=== PATIENT | male | born 1950 | race Caucasian/White ===

== ENCOUNTER 2016-10-27 11:04 | Emergency (ER) | payer MEDICARE, BC ==
[2016-10-27] MEDS ORDERED: LIDOCAINE VISCOUS 2% 15 ML CUP MUCOUS MEM STA (11:33)
--- NOTE | 2016-10-27 11:35 | ED ---
ENT HPI - General Chief complaint: ENT Stated complaint: DIFF SWALLOWING, POSS FB Time Seen by Provider: 10/27/16 11:27 Source: patient, RN notes reviewed Mode of arrival: ambulatory Limitations: no limitations - History of Present Illness Initial comments: 65-year-old male presents to the emergency department with a chief complaint of difficulty in swallowing. Since the beginning of September the patient has noticed that he has some irritation with swallowing. He's been to ENT as well as to the clinic. They stated that it was acid reflux and they put him on some medication as well as antibiotic. Patient states that since he seen [place] since be getting worse. Patient states last night he was up all night trying to clear his throat. Patient denies any fever or chills with this. Patient states he hasn't had any nausea vomiting. Patient is able to drink water he is able to swallow his saliva he is able to eat. Patient states just has his throat irritation. Patient states he was concerned due to his symptoms without that he should be evaluated. This is not currently having any other symptoms at this time.Patient denies any recent fever, chills, shortness of breath, chest pain, back pain, abdominal pain, nausea vomiting, numbness or tingling, dysuria or hematuria, constipation or diarrhea, headaches or visual changes, or any other current symptoms. - Related Data Home Medications Medication Instructions Recorded Confirmed ALPRAZolam [Xanax] 0.25 mg PO TID 05/31/14 10/27/16 Acarbose [Precose] 50 mg PO TID 05/31/14 10/27/16 Aspirin EC [Ecotrin] 325 mg PO DAILY 05/31/14 10/27/16 Atenolol [Tenormin] 50 mg PO 05/31/14 10/27/16 Atorvastatin [Lipitor] 40 mg PO 05/31/14 10/27/16 Clopidogrel [Plavix] 75 mg PO DAILY 05/31/14 10/27/16 Lisinopril [Zestril] 10 mg PO DAILY 05/31/14 10/27/16 Mometasone Furoate [Nasonex Nasal 2 spray EA NOSTRIL 05/31/14 10/27/16 [place]] Tamsulosin HCl [Flomax] 0.8 mg PO DAILY 05/31/14 10/27/16 glipiZIDE [Glucotrol XL] 10 mg PO BID 05/31/14 10/27/16 metFORMIN HCL [Glucophage] 1,000 mg PO BID 05/31/14 10/27/16 Nitroglycerin Sl Tabs [Nitrostat] 0.4 mg SUBLINGUAL Q5M PRN 04/20/15 10/27/16 sitaGLIPtin [Januvia] 100 mg PO HS 04/20/15 10/27/16 Esomeprazole Magnesium [NexIUM 22.3 mg PO DAILY 10/27/16 10/27/16 24Hr] Pioglitazone HCl [Actos] 30 mg PO DAILY 10/27/16 10/27/16 Ranitidine HCl [Zantac] 150 mg PO HS 10/27/16 10/27/16 Previous Rx's Medication Instructions Recorded HYDROcodone/APAP 7.5-325MG [[place] 1 tab PO Q6HR PRN #90 tab 10/15/15 7.5-325] Sucralfate [Carafate] 1 gm PO ACHS #30 tab 10/27/16 Allergies Allergy/AdvReac Type Severity Reaction Status Date / Time No Known Allergies Allergy Verified 10/27/16 11:23 Review of Systems ROS Statement: Those systems with pertinent positive or pertinent negative responses have been documented in the HPI. ROS Other: All systems not noted in ROS Statement are negative. Past Medical History Past Medical History: Coronary Artery Disease (CAD), Diabetes Mellitus, GERD/ Reflux, Hyperlipidemia, Hypertension, Myocardial Infarction ([place]), Osteoarthritis (OA), Prostate Disorder Additional Past Medical History / Comment(s): Hx. KIDNEY STONES, occasional SOB recently Last Myocardial Infarction Date:: 2004 History of Any Multi-Drug Resistant Organisms: None Reported Past Surgical History: Appendectomy, Back Surgery, Ear Surgery, Heart Catheterization, Heart Catheterization With Stent, Orthopedic Surgery Additional Past Surgical History / Comment(s): METAL SCREWS IN BACK, RIGHT EAR TUBE, EPIDURAL PAIN SHOTS, previous stents 2004,2005, LITHOTRIPSY LT KIDNEY, recent heart cath 2014 Past Anesthesia/Blood Transfusion Reactions: No Reported Reaction Date of Last Stent Placement:: 05/2014 Past Psychological History: Anxiety Smoking Status: Never smoker Past Alcohol Use History: Rare Past Drug Use History: None Reported - Past Family History Father Family Medical History: Cancer Additional Family Medical History / Comment(s): BRAIN General Exam - General Exam Comments Initial Comments: General: The patient is awake and alert, in no distress, and does not appear acutely ill. Eye: Pupils are equal, round and reactive to light, extra-ocular movements are intact; there is normal conjunctiva bilaterally. No signs of icterus. Ears, nose, mouth and throat: There are moist mucous membranes and no oral lesions. Neck: The neck is supple, there is no tenderness. Cardiovascular: There is a regular rate and rhythm. No murmur, rub or gallop is appreciated. Respiratory: Lungs are clear to auscultation, respirations are non-labored, breath sounds are equal. No wheezes, stridor, rales, or rhonchi. Gastrointestinal: Soft, non-distended, non-tender abdomen without masses or organomegaly noted. There is no rebound or guarding present. No CVA tenderness. Bowel sounds are unremarkable. Back: There is no tenderness to palpation in the midline. There is no obvious deformity. No rashes noted. Musculoskeletal: Normal ROM, no tenderness, There is no pedal edema. There is no calf tenderness or swelling. Sensation intact. Pulses equal bilaterally 2+. Neurological: CN II-XII intact, There are no obvious motor or sensory deficits. Coordination appears grossly intact. Speech is normal. Skin: Skin is warm and dry and no rashes or lesions are noted. Psychiatric: Cooperative, appropriate mood & affect, normal judgment. Limitations: no limitations Course Vital Signs 10/27/16 11:18 Temperature 97.2 F L Pulse Rate 74 Respiratory 18 Rate Blood Pressure 133/60 O2 Sat by Pulse 98 Oximetry Medical Decision Making - Medical Decision Making 65-year-old male presents to emergency room chief complaint irritation with swallowing. At this time the patient is able to take water in the room. Patient is handling his own saliva and speaking in full sentences. Patient has had an outpatient workup for this they did not find a cause for this. At this time we did do x-rays as well as get patient lidocaine. Lidocaine did not help with the patient's symptoms. Patient's x-rays are reviewed and negative. This time we discussed needs to follow-up with an EEG DEP. We did give him Dr. Longoria information regarding this. He is to be treating for acid reflux he discussed continue this medicine. The case is discussed with Dr. Hyde who is in agreement with the plan. All their questions have been answered. They will be discharged home. Disposition Clinical Impression: Irritated throat, GERD (gastroesophageal reflux disease) Disposition: HOME SELF-CARE Condition: Stable Instructions: Gastroesophageal Reflux Disease (ED) Additional Instructions: Please use medication as discussed. Please follow up with family doctor if symptoms have not improved over the next two days. Please return to the emergency room if your symptoms increase or worsen or for any other concerns. Prescriptions: Sucralfate [Carafate] 1 gm PO ACHS #30 tab Referrals: Timur Cruz MD [Primary Care Provider] - 1-2 days Basil Hernandez MD [STAFF PHYSICIAN] - 1-2 days Time of Disposition: 12:21
--- NOTE | 2016-10-27 11:51 | XR ---
EXAMINATION TYPE: XR chest 2V DATE OF EXAM: 10/27/2016 11:46 AM COMPARISON: 10/02/2015 INDICATION: Stuck in throat, shortness of breath TECHNIQUE: Frontal and lateral views of the chest are obtained. FINDINGS: The heart size is normal. The pulmonary vasculature is normal. The lungs are clear. There is focal eventration of the right hemidiaphragm. IMPRESSION: 1. No acute pulmonary process.
--- NOTE | 2016-10-27 11:54 | XR ---
EXAMINATION TYPE: XR cervical spine comp DATE OF EXAM: 10/27/2016 11:46 AM COMPARISON: NONE HISTORY: Pain TECHNIQUE: 5 view cervical spine FINDINGS: Prevertebral space is normal. Mild disc space narrowing is present C4-5 C5-C6 C6-7. Small a nterior vertebral body spurs are present C5 and C6. Posterior spinal lamellar line is intact. Facet d egenerative changes present. There is right foraminal narrowing C4-C5 on the left. Severe foraminal narrowing is present C3-4 on t he right. More moderate foraminal narrowing is present C4-5 C5-6. Odontoid is somewhat limited due to overlying occiput. IMPRESSION: 1. Foraminal stenosis worse on the right discussed above. 2. Mild degenerative disc changes.
[2016-10-27 12:53] VITALS: BP 131/63; PULSE 68; RESP 16; TEMP 96.8
== END 2016-10-27 12:53 | disposition home or self-care (01) ==
LOC: EC 11:04
DX: K21.9 Gastro-esophageal reflux disease without esophagitis (principal); E11.9 Type 2 diabetes mellitus without complications; I25.2 Old myocardial infarction; I25.10 Atherosclerotic heart disease of native coronary artery without angina pectoris; I10 Essential (primary) hypertension; E78.5 Hyperlipidemia, unspecified; F41.9 Anxiety disorder, unspecified; Z95.5 Presence of coronary angioplasty implant and graft; Z79.899 Other long term (current) drug therapy; Z79.02 Long term (current) use of antithrombotics/antiplatelets; Z79.51 Long term (current) use of inhaled steroids; Z79.84 Long term (current) use of oral hypoglycemic drugs; Z79.82 Long term (current) use of aspirin
CPT/HCPCS: 71020; 72050; 99284

== ENCOUNTER → 2016-10-31 | Outpatient (CLI) | payer MEDICARE, BC ==
--- NOTE | 2016-10-31 09:54 | FL ---
ESOPHOGRAM. HISTORY: Dysphagia Esophagram was performed per the air contrast technique. The patient swallowed barium and effervesce nt crystals without difficulty or delay. Esophageal peristalsis and motility appear to be within normal limits. There is no evidence for filling defect, mass or diverticulum. No hiatal hernia seen. Subsequently single contrast cervical esophagram was performed which fails demonstrate evidence for a spiration penetration or mass. IMPRESSION: Unremarkable study.
== END | disposition home or self-care (01) ==
LOC: RADFLWHC 08:51
PROVIDERS: ATTEND Internal Medicine
DX: R13.10 Dysphagia, unspecified (principal)
CPT/HCPCS: 74220

== ENCOUNTER 2016-11-07 08:43 | Day surgery (SDC) | payer MEDICARE, BC ==
[2016-11-04 11:53] VITALS: BMI 30.4
[~2016-11-07 08:43] MED LIST: LACTATED RINGERS 1,000 ML IV SCH
[2016-11-07] MEDS ORDERED: LIDOCAINE 1% 20 ML VIAL (10MG/ML) FOR IV START SQ ONE (09:02)
[2016-11-07 09:08] VITALS: RESP 16; TEMP 97.9
[2016-11-07 09:18] LABS: Glucose,Whole Blood 72 mg/dL (75-99)
[2016-11-07] MEDS ORDERED: PROPOFOL 10 MG/ML 20 ML VIAL IV ONE (09:57)
[2016-11-07] MEDS ORDERED: LIDOCAINE 1% INJ 10MG/ML (20 ML MDV) ONE (09:57)
--- NOTE | 2016-11-07 10:21 | P.PCN ---
Date of Procedure: 11/07/16 Procedure(s) Performed: Procedure: Esophagogastroduodenoscopy and biopsy. Preoperative diagnosis: Chronic reflux symptoms and dysphagia. Postoperative diagnosis: Mild antral gastritis. Preparation and sedation: Was provided by anesthesia. Brief clinical history: The patient is a 65-year-old male who is referred for this evaluation for the above complaints. The patient has been on Nexium since 2004 or 2005 for reflux type symptoms. He has been having issues lately with excessive secretions and at times difficulty swallowing. He had a barium swallow which was normal. This evaluation is to assess for complicated reflux disease or other pathology. Procedure: With the patient on his left lateral decubitus position and after informed consent and adequate sedation, I passed the Olympus-GIF 160 video upper endoscope through the cricopharyngeus down the esophagus. GE junction was around 41 cm from the incisors and there was no definite hiatal hernia. The esophagus did not show any erosions, ulcers, strictures or Landa's esophagus. The endoscope was then passed into the stomach which was insufflated with air and inspected in detail including the retroflex view in the cardia. There was some mottling and erythema consistent with mild gastritis but no ulcers or erosions. Pyloric channel, duodenal bulb, post bulbar area and descending duodenum appeared within normal limits. I obtained multiple biopsies from the duodenum, antrum and esophagus then the endoscope was withdrawn. The patient tolerated the procedure well. Plan: The patient was reassured. Will await biopsy results. He will continue antireflux diet and measures and with his current medical therapy. If he remains symptomatic of dysphagia I would consider a motility study in the absence of significant findings on this exam or any need for dilation today. He will follow up with you as planned.
[2016-11-07 10:25] LABS: Glucose,Whole Blood 75 mg/dL (75-99)
[2016-11-07 10:37] VITALS: BP 118/65; PULSE 53
== END 2016-11-07 10:51 | disposition home or self-care (01) ==
LOC: ORWHC2ENDO 08:43
DX: K21.9 Gastro-esophageal reflux disease without esophagitis (principal); K29.50 Unspecified chronic gastritis without bleeding; E11.9 Type 2 diabetes mellitus without complications; I25.10 Atherosclerotic heart disease of native coronary artery without angina pectoris; I10 Essential (primary) hypertension; E78.5 Hyperlipidemia, unspecified; N20.0 Calculus of kidney; N40.0 Benign prostatic hyperplasia without lower urinary tract symptoms; M19.90 Unspecified osteoarthritis, unspecified site; I25.2 Old myocardial infarction; Z79.84 Long term (current) use of oral hypoglycemic drugs; Z79.02 Long term (current) use of antithrombotics/antiplatelets; Z79.82 Long term (current) use of aspirin; Z79.891 Long term (current) use of opiate analgesic; Z79.899 Other long term (current) drug therapy; Z95.5 Presence of coronary angioplasty implant and graft; Z90.49 Acquired absence of other specified parts of digestive tract
CPT/HCPCS: 88305; 88342; 43239; J2001; J2704

== ENCOUNTER 2016-11-12 17:51 | Emergency (ER) | payer MEDICARE, BC ==
[2016-11-12] MEDS ORDERED: SODIUM CHLORIDE 0.9% 1,000 ML IV STA (18:35)
[2016-11-12] MEDS ORDERED: KETOROLAC 30 MG/ML 1 ML VIAL IVP STA (18:35)
[2016-11-12] MEDS ORDERED: HYDROmorphone 1 MG/ML 1 ML SYRINGE IVP STA ×2 (18:35→20:13)
[2016-11-12] MEDS ORDERED: ONDANSETRON 4 MG/2 ML VIAL IVP STA (18:35)
--- NOTE | 2016-11-12 18:45 | ED ---
Abdominal Pain HPI - General Chief Complaint: Abdominal Pain Stated Complaint: Back/flank pain Time Seen by Provider: 11/12/16 18:30 Source: patient, RN notes reviewed Mode of arrival: ambulatory Limitations: no limitations - History of Present Illness Initial Comments: Patient is a 65-year-old male, with chief complaint of right flank pain radiating down towards his groin for the past afternoon. Patient reports that it started around 2:00 this afternoon. He states he took a [place] and his pain is somewhat relieved since then. He has a sensitive history of kidney stones. He states that he has felt somewhat nauseated but denies any specific vomiting. No fever or chills. Patient reports that he is had to have lithotripsies in the past for kidney stones. He reports that his pain is currently a 4 out of 10 but prior to taking the [place] was about a 7 out of 10. He reports that this pain is similar to all previous kidney stones that he is had. He denies a specific hematuria. Patient denies any recent fever, chills, shortness of breath, chest pain,nausea vomiting, numbness or tingling, dysuria or hematuria, constipation or diarrhea, headaches or visual changes, or any other current symptoms - Related Data Home Medications Medication Instructions Recorded Confirmed ALPRAZolam [Xanax] 0.25 mg PO QAM 05/31/14 11/12/16 Acarbose [Precose] 50 mg PO TID 05/31/14 11/12/16 Aspirin EC [Ecotrin] 325 mg PO DAILY 05/31/14 11/12/16 Atenolol [Tenormin] 50 mg PO 05/31/14 11/12/16 Atorvastatin [Lipitor] 40 mg PO 05/31/14 11/12/16 Clopidogrel [Plavix] 75 mg PO DAILY 05/31/14 11/12/16 Lisinopril [Zestril] 10 mg PO DAILY 05/31/14 11/12/16 Mometasone Furoate [Nasonex Nasal 2 spray EA NOSTRIL 05/31/14 11/12/16 [place]] Tamsulosin HCl [Flomax] 0.8 mg PO DAILY 05/31/14 11/12/16 glipiZIDE [Glucotrol XL] 10 mg PO BID 05/31/14 11/12/16 Nitroglycerin Sl Tabs [Nitrostat] 0.4 mg SUBLINGUAL Q5M PRN 04/20/15 11/12/16 sitaGLIPtin [Januvia] 100 mg PO HS 04/20/15 11/12/16 Esomeprazole Magnesium [NexIUM 22.3 mg PO DAILY 10/27/16 11/12/16 24Hr] Pioglitazone HCl [Actos] 30 mg PO HS 10/27/16 11/12/16 Ranitidine HCl [Zantac] 150 mg PO HS 10/27/16 11/12/16 Montelukast [Singulair] 10 mg PO HS 11/12/16 11/12/16 metFORMIN HCL 1,000 mg PO BID 11/12/16 11/12/16 Previous Rx's Medication Instructions Recorded HYDROcodone/APAP 7.5-325MG [[place] 1 tab PO Q6HR PRN #90 tab 10/15/15 7.5-325] LORazepam [Ativan] 1 mg PO HS #5 tab 10/27/16 HYDROcodone/APAP 10-325MG [[place] 1 tab PO Q6H PRN #10 tab 11/12/16 10-325] Ketorolac [Toradol] 10 mg PO TID #15 tab 11/12/16 Tamsulosin [Flomax] 0.4 mg PO DAILY #7 cap 11/12/16 Allergies Allergy/AdvReac Type Severity Reaction Status Date / Time No Known Allergies Allergy Verified 11/12/16 18:47 Review of Systems ROS Statement: Those systems with pertinent positive or pertinent negative responses have been documented in the HPI. ROS Other: All systems not noted in ROS Statement are negative. Past Medical History Past Medical History: Coronary Artery Disease (CAD), Cancer, Chest Pain / Angina , Diabetes Mellitus, GERD/Reflux, Hyperlipidemia, Hypertension, Myocardial Infarction ([place]), Osteoarthritis (OA), Prostate Disorder, Skin Disorder Additional Past Medical History / Comment(s): Hx. KIDNEY STONES, occasional SOB recently, diff swallowing-feels like in throat, diarrhea, dry skin, hx bladder cancer Last Myocardial Infarction Date:: 2004 History of Any Multi-Drug Resistant Organisms: None Reported Past Surgical History: Appendectomy, Back Surgery, Ear Surgery, Heart Catheterization, Heart Catheterization With Stent, Orthopedic Surgery Additional Past Surgical History / Comment(s): METAL SCREWS IN BACK, RIGHT EAR TUBE/now gone, EPIDURAL PAIN SHOTS, previous stents 2004,2005, LITHOTRIPSY, rt shoulder rotator cuff Past Anesthesia/Blood Transfusion Reactions: No Reported Reaction Date of Last Stent Placement:: 05/2014 Past Psychological History: Anxiety Smoking Status: Never smoker Past Alcohol Use History: Rare Past Drug Use History: None Reported - Past Family History Father Family Medical History: Cancer Additional Family Medical History / Comment(s): BRAIN General Exam - General Exam Comments Initial Comments: Nikky is a well-appearing 65-year-old male. He is resting, lamivudine does not appear to be in any acute distress. Limitations: no limitations General appearance: alert, in no apparent distress Head exam: Present: atraumatic, normocephalic, normal inspection Eye exam: Present: normal appearance, PERRL, EOMI. Absent: scleral icterus, conjunctival injection, periorbital swelling ENT exam: Present: normal exam, mucous membranes moist Neck exam: Present: normal inspection. Absent: tenderness, meningismus, lymphadenopathy Respiratory exam: Present: normal lung sounds bilaterally. Absent: respiratory distress, wheezes, rales, rhonchi, stridor Cardiovascular Exam: Present: regular rate, normal rhythm, normal heart sounds. Absent: systolic murmur, diastolic murmur, rubs, gallop, clicks GI/Abdominal exam: Present: soft, normal bowel sounds. Absent: distended, tenderness, guarding, rebound, rigid Extremities exam: Present: normal inspection, full ROM, normal capillary refill. Absent: tenderness, pedal edema, joint swelling, calf tenderness Back exam: Present: normal inspection, full ROM, CVA tenderness (L). Absent: CVA tenderness (R) Neurological exam: Present: alert, oriented X3, CN II-XII intact Psychiatric exam: Present: normal affect, normal mood Skin exam: Present: warm, dry, intact, normal color. Absent: rash Course Vital Signs 11/12/16 11/12/16 11/12/16 18:25 19:06 22:00 Temperature 98.1 F 97.9 F 97.2 F L Pulse Rate 84 55 L 66 Respiratory 17 16 16 Rate Blood Pressure 132/63 146/67 131/64 O2 Sat by Pulse 96 100 97 Oximetry Medical Decision Making - Medical Decision Making Nikky is a 65-year-old male with one afternoon of right flank pain rating towards grown, and he states that he has a history of kidney stones. Patient does have blood in his urine, and lab work is unremarkable. KUB shows possible 5mm renal stone, and no other acute abnormalities. Patient is concerned that the kidney stones are too large to pass. Patient CT shows left sided hydronephrosis that is improved from previous CT scans. Evidence of a stone in the bladder, and multiple renal calculi blatterally. No evidence of an obstructing stone in the left ureter. Patient given IV fluids and pain management. Patient will be given Rx of NOrco, flomax, and toradol. Patients urine and lab work show no signs of infection, we will culture urine and hold on antibiotics. Patient will be advised to follow up with PCP and repeat urinealysis and to return to the EC if any alarming signs or symptoms occur, including fevers. - Lab Data Result diagrams: 11/12/16 18:51 11/12/16 18:51 Lab Results 11/12/16 11/12/16 11/12/16 Range/Units 18:51 18:51 18:51 WBC 8.2 (3.8-10.6) k/uL RBC 3.99 L (4.30-5.90) m/uL Hgb 12.5 L (13.0-17.5) gm/dL Hct 37.5 L (39.0-53.0) % MCV 93.9 (80.0-100.0) fL MCH 31.3 (25.0-35.0) pg MCHC 33.3 (31.0-37.0) g/dL RDW 13.3 (11.5-15.5) % Plt Count 224 (150-450) k/uL Neutrophils % 73 % Lymphocytes % 16 % Monocytes % 6 % Eosinophils % 3 % Basophils % 1 % Neutrophils # 6.0 (1.3-7.7) k/uL Lymphocytes # 1.3 (1.0-4.8) k/uL Monocytes # 0.5 (0-1.0) k/uL Eosinophils # 0.2 (0-0.7) k/uL Basophils # 0.0 (0-0.2) k/uL Sodium 146 H (137-145) mmol/L Potassium 4.6 (3.5-5.1) mmol/L Chloride 110 H (98-107) mmol/L Carbon Dioxide 20 L (22-30) mmol/L Anion Gap 16 mmol/L BUN 16 (9-20) mg/dL Creatinine 1.00 (0.66-1.25) mg/dL Est GFR (MDRD) Af Amer >60 (>60 ml/min/1.73 sqM) Est GFR (MDRD) Non-Af >60 (>60 ml/min/1.73 sqM) Glucose 169 H (74-99) mg/dL Calcium 10.1 (8.4-10.2) mg/dL Total Bilirubin 0.7 (0.2-1.3) mg/dL AST 33 (17-59) U/L ALT 37 (21-72) U/L Alkaline Phosphatase 67 (38-126) U/L Total Protein 7.4 (6.3-8.2) g/dL Albumin 4.4 (3.5-5.0) g/dL Amylase 90 (30-110) U/L Lipase 160 (23-300) U/L Urine Color Yellow Urine Appearance Clear (Clear) Urine pH 5.0 (5.0-8.0) Ur Specific [place] 1.018 (1.001-1.035) Urine Protein Trace H (Negative) Urine Glucose (UA) Negative (Negative) Urine Ketones Negative (Negative) Urine Blood Moderate H (Negative) Urine Nitrate Negative (Negative) Urine Bilirubin Negative (Negative) Urine Urobilinogen <2.0 (<2.0) mg/dL Ur Leukocyte Esterase Negative (Negative) Urine RBC 79 H (0-5) /hpf Urine WBC 4 (0-5) /hpf Ur Squamous Epith Cells <1 (0-4) /hpf Urine Mucus Rare H (None) /hpf - Radiology Data Radiology results: report reviewed Numerous bilateral renal calculi. mild left hydronephrosis and hydroureter. stone in distal left ureter on old scan is cleared and is in bladder. atherosclerotic vascular disease. Hydronephrosis is improved from previous exam. Disposition Clinical Impression: Left nephrolithiasis Disposition: HOME SELF-CARE Condition: Good Instructions: Kidney Stones (ED), Flank Pain (ED) Additional Instructions: instructed to follow-up with urologist. Return to the EC if any alarming signs or symptoms occur. Follow-up with primary care provider. Prescriptions: HYDROcodone/APAP 10-325MG [[place] 10-325] 1 tab PO Q6H PRN #10 tab PRN Reason: Pain Ketorolac [Toradol] 10 mg PO TID #15 tab Tamsulosin [Flomax] 0.4 mg PO DAILY #7 cap Referrals: Timur Cruz MD [Primary Care Provider] - 1-2 days Time of Disposition: 21:43
[2016-11-12 19:02] LABS: Basophils % (A) 1 %; CH 32.3; CHCM 34.6; Eosinophils # (A) 0.2 k/uL (0-0.7); Eosinophils % (A) 3 %; HCT 37.5 % (39.0-53.0); HGB 12.5 gm/dL (13.0-17.5); Luc # (Auto) 0.13; Luc % (Auto) 2; Lymphocytes # (A) 1.3 k/uL (1.0-4.8); Lymphocytes % (A) 16 %; MCH 31.3 pg (25.0-35.0); MCHC 33.3 g/dL (31.0-37.0); MCV 93.9 fL (80.0-100.0); Mean Platelet Volume 6.9; Monocytes # (A) 0.5 k/uL (0-1.0); Monocytes % (A) 6 %; Neutrophils % (A) 73 %; RBC 3.99 m/uL (4.30-5.90); RDW 13.3 % (11.5-15.5); WBC 8.2 k/uL (3.8-10.6); WBC (Perox) 8.69
[2016-11-12 19:08] VITALS: RESP 16
[2016-11-12 19:10] LABS: Appearance,Urine Clear (Clear); Bilirubin,Urine Negative (Negative); Glucose,Urine (UA) Negative (Negative); Ketones,Urine Negative (Negative); Leukocyte Esterase,Urine Negative (Negative); Mucus,Urine Rare /hpf; Nitrite,Urine Negative (Negative); Particle Count 1324; Protein,Urine Trace (Negative); RBC,Urine 79 /hpf (0-5); Specific Gravity,Urine 1.018 (1.001-1.035); Squamous Epithelial Cell,Urine <1 /hpf (0-4); UA Billing (MACRO vs. MICRO) MICRO; Urobilinogen,Urine <2.0 mg/dL (<2.0); WBC,Urine 4 /hpf (0-5)
[2016-11-12 19:17] LABS: ALT 37 U/L (21-72); AST 33 U/L (17-59); Alkaline Phosphatase 67 U/L (38-126); Amylase 90 U/L (30-110); Anion Gap 16 mmol/L; Blood Urea Nitrogen 16 mg/dL (9-20); Calcium 10.1 mg/dL (8.4-10.2); Carbon Dioxide 20 mmol/L (22-30); Chloride 110 mmol/L (98-107); Glucose 169 mg/dL (74-99); Non-African American GFR(MDRD) >60 (>60 ml/min/1.73 sqM); Potassium 4.6 mmol/L (3.5-5.1); Sodium 146 mmol/L (137-145); Total Bilirubin 0.7 mg/dL (0.2-1.3); Total Protein 7.4 g/dL (6.3-8.2)
--- NOTE | 2016-11-12 20:04 | XR ---
EXAMINATION TYPE: XR KUB DATE OF EXAM: 11/12/2016 7:31 PM COMPARISON: 07/06/2015 HISTORY: Flank pain left lower quadrant pain TECHNIQUE: 2 views FINDINGS: There is no sign of intestinal obstruction or pneumoperitoneum. Fecal pattern is normal. Tena ng bases are clear. There are rods and screws fusing posteriorly the lower lumbar spine. There is a f aint 5 mm calcification over the lower pole left kidney. IMPRESSION: There is probably a left renal calculus without change compared to old exam. Nonacute abd omen. There are probably other right renal calculi similar to old exam.
--- NOTE | 2016-11-12 21:15 | CT ---
EXAMINATION TYPE: CT abdomen pelvis wo con DATE OF EXAM: 11/12/2016 8:39 PM COMPARISON: NONE HISTORY: Left sided flank pain CT DLP: 1200 mGycm Automated exposure control for dose reduction was used. TECHNIQUE: Helical acquisition of images was performed from the lung bases through the pelvis. FINDINGS: Lung bases are clear of consolidation. There is no pleural effusion. The liver spleen pancreas appear normal. There is a small calcified gallstone. Bile ducts are not dil ated. There is no adrenal mass. There are multiple bilateral renal calculi that measure up to 5 mm. T here is a single 1 cm right renal calculus. There is mild left-sided hydronephrosis and hydroureter. There is a 7 mm calcification in the posterior urinary bladder consistent with a bladder stone. Right ureter is not dilated. There is no retroperitoneal adenopathy.. Bladder distends smoothly. There is no sign of a pelvic mass. I see no intestinal wall thickening. There are no dilated loops. There is a n umbilical hernia contains omental fat. There is no sign of a bowel obstruction. There is atheroscle rotic vascular calcification. I see no bony destructive process.: IMPRESSION: NUMEROUS BILATERAL RENAL CALCULI. MILD LEFT-SIDED HYDRONEPHROSIS AND HYDROURETER. THERE IS A STONE IN THE DISTAL LEFT URETER ON OLD CT SCAN THAT HAS CLEARED FROM THE URETER AND MAY BE WITHIN THE URINARY BLADDER. THERE IS A SINGLE BLADDER STONE. ATHEROSCLEROTIC VASCULAR DISEASE. LEFT-SIDED HYDRONEPHROSI S IS IMPROVED COMPARED TO OLD EXAM.
[2016-11-12 22:01] VITALS: BP 131/64; PULSE 66; TEMP 97.2
== END 2016-11-12 22:07 | disposition home or self-care (01) ==
LOC: EC 17:51
DX: N13.2 Hydronephrosis with renal and ureteral calculous obstruction (principal); F41.9 Anxiety disorder, unspecified; K21.9 Gastro-esophageal reflux disease without esophagitis; I10 Essential (primary) hypertension; E11.9 Type 2 diabetes mellitus without complications; I25.10 Atherosclerotic heart disease of native coronary artery without angina pectoris; N42.9 Disorder of prostate, unspecified; E78.5 Hyperlipidemia, unspecified; Z87.442 Personal history of urinary calculi; Z79.899 Other long term (current) drug therapy; I25.2 Old myocardial infarction; Z95.5 Presence of coronary angioplasty implant and graft; Z79.02 Long term (current) use of antithrombotics/antiplatelets; Z79.51 Long term (current) use of inhaled steroids; Z79.84 Long term (current) use of oral hypoglycemic drugs; Z85.51 Personal history of malignant neoplasm of bladder
CPT/HCPCS: 99284; 96374; 96375; 96376; 96361; 36415; 80053; 82150; 83690; 85025; 81001; 74000; 74176; J2405; J1885; J1170

== ENCOUNTER → 2017-05-13 | Outpatient (CLI) | payer MEDICARE, BC ==
--- NOTE | 2017-05-13 22:53 | US ---
EXAMINATION TYPE: US thyroid st tissue head/neck DATE OF EXAM: 05/13/2017 COMPARISON: None. CLINICAL HISTORY: 66-year-old male R13.19 Other dysphagia. Patient feels phlegm in throat. TECHNIQUE: Multiple sonographic images of the thyroid gland are obtained. FINDINGS: Right Lobe: 2.9 x 1.3 x 1.3 cm Overall Parenchyma: homogenous Left Lobe: 3.3 x 1.4 x 1.2 cm Overall Parenchyma: homogeneous Isthmus Thickness: 0.4 cm On the right, in the upper pole, there is a tiny 3 mm cyst. Otherwise, no discrete nodule is seen. Bilateral neck scanned: small lymph node = 0.7 x 0.4 x 0.4cm is noted superior to right thyroid. No l ymphadenopathy seen. IMPRESSION: Tiny 3 mm cyst in the right thyroid lobe. Gland measurements as above.
== END | disposition home or self-care (01) ==
LOC: RADUSMAIN 15:41
PROVIDERS: ATTEND Internal Medicine Endocrinology, Diabetes & Metabolism
DX: E04.1 Nontoxic single thyroid nodule (principal)
CPT/HCPCS: 76536; 84439; 84443

== ENCOUNTER 2017-10-25 07:46 | Inpatient (IN) | payer MEDICARE, BC ==
[2017-10-25] MEDS ORDERED: SODIUM CHLORIDE 0.9% 1,000 ML IV STA (07:55)
--- NOTE | 2017-10-25 07:56 | ED ---
General Adult HPI - General Stated complaint: CHEST TIGHTNESS, HEART Hx Time Seen by Provider: 10/25/17 07:54 Source: RN notes reviewed, old records reviewed - History of Present Illness Initial comments: This is a 66-year-old male to the ER for a couple complaints, patient is complaining of chest pain first and foremost anterior chest pain heaviness that comes and goes, patient has history of heart disease history of stent. Patient also has history of kidney stones and believes he is having a kidney stone currently. Left-sided flank pain severe. No nausea vomiting, patient has had some belching and bloating prior to arrival. No shortness of breath or diaphoresis. Patient did take nitro with minimal help - Related Data Home Medications Medication Instructions Recorded Confirmed ALPRAZolam [Xanax] 0.25 mg PO QAM 05/31/14 11/12/16 Acarbose [Precose] 50 mg PO TID 05/31/14 11/12/16 Aspirin EC [Ecotrin] 325 mg PO DAILY 05/31/14 11/12/16 Atenolol [Tenormin] 50 mg PO 05/31/14 11/12/16 Atorvastatin [Lipitor] 40 mg PO HS 05/31/14 11/12/16 Clopidogrel [Plavix] 75 mg PO DAILY 05/31/14 11/12/16 Lisinopril [Zestril] 10 mg PO DAILY 05/31/14 11/12/16 Mometasone Furoate [Nasonex Nasal 2 spray EA NOSTRIL HS 05/31/14 11/12/16 [place]] Tamsulosin HCl [Flomax] 0.8 mg PO DAILY 05/31/14 11/12/16 glipiZIDE [Glucotrol XL] 10 mg PO BID 05/31/14 11/12/16 Nitroglycerin Sl Tabs [Nitrostat] 0.4 mg SUBLINGUAL Q5M PRN 04/20/15 11/12/16 sitaGLIPtin [Januvia] 100 mg PO HS 04/20/15 11/12/16 Esomeprazole Magnesium [NexIUM 22.3 mg PO DAILY 10/27/16 11/12/16 24Hr] Pioglitazone HCl [Actos] 30 mg PO HS 10/27/16 11/12/16 Ranitidine HCl [Zantac] 150 mg PO HS 10/27/16 11/12/16 Montelukast [Singulair] 10 mg PO HS 11/12/16 11/12/16 metFORMIN HCL 1,000 mg PO BID 11/12/16 11/12/16 Previous Rx's Medication Instructions Recorded HYDROcodone/APAP 7.5-325MG [[place] 1 tab PO Q6HR PRN #90 tab 10/15/15 7.5-325] LORazepam [Ativan] 1 mg PO HS #5 tab 10/27/16 HYDROcodone/APAP 10-325MG [[place] 1 tab PO Q6H PRN #10 tab 11/12/16 10-325] Ketorolac [Toradol] 10 mg PO TID #15 tab 11/12/16 Tamsulosin [Flomax] 0.4 mg PO DAILY #7 cap 11/12/16 Allergies Allergy/AdvReac Type Severity Reaction Status Date / Time No Known Allergies Allergy Verified 11/12/16 18:47 Review of Systems ROS Statement: Those systems with pertinent positive or pertinent negative responses have been documented in the HPI. ROS Other: All systems not noted in ROS Statement are negative. Past Medical History Past Medical History: Coronary Artery Disease (CAD), Cancer, Chest Pain / Angina , Diabetes Mellitus, GERD/Reflux, Hyperlipidemia, Hypertension, Myocardial Infarction ([place]), Osteoarthritis (OA), Prostate Disorder, Skin Disorder Additional Past Medical History / Comment(s): Hx. KIDNEY STONES, occasional SOB recently, diff swallowing-feels like in throat, diarrhea, dry skin, hx bladder cancer Last Myocardial Infarction Date:: 2004 History of Any Multi-Drug Resistant Organisms: None Reported Past Surgical History: Appendectomy, Back Surgery, Ear Surgery, Heart Catheterization, Heart Catheterization With Stent, Orthopedic Surgery Additional Past Surgical History / Comment(s): METAL SCREWS IN BACK, RIGHT EAR TUBE/now gone, EPIDURAL PAIN SHOTS, previous stents 2004,2005, LITHOTRIPSY, rt shoulder rotator cuff Past Anesthesia/Blood Transfusion Reactions: No Reported Reaction Date of Last Stent Placement:: 05/2014 Past Psychological History: Anxiety Smoking Status: Never smoker Past Alcohol Use History: Rare Past Drug Use History: None Reported - Past Family History Father Family Medical History: Cancer Additional Family Medical History / Comment(s): BRAIN Course Vital Signs 10/25/17 10/25/17 10/25/17 07:56 09:27 10:06 Temperature 97 F L Pulse Rate 60 60 59 L Respiratory 16 16 16 Rate Blood Pressure 185/81 179/76 173/74 O2 Sat by Pulse 98 98 98 Oximetry - Reevaluation(s) Reevaluation #1: 10/25/17 10:16 Patient does have adequate pain control at this time EKG Findings - EKG Comments: EKG Findings:: EKG shows normal sinus rhythm rate of 61, AR 172, QRS 98, QTC 424 Medical Decision Making - Medical Decision Making 66 male the ER for evaluation, patient presents today for evaluation of chest pain. Patient also thinks he has a kidney stone left-sided. Patient was severe chest pain, and ER for chest pain evaluation currently. Patient says EKG and troponin which are negative, states they're normally negative, history of stent and will be admitted for cardiac evaluation - Lab Data Result diagrams: 10/25/17 08:15 10/25/17 08:15 Lab Results 10/25/17 10/25/17 10/25/17 Range/Units 08:15 08:15 08:15 WBC 6.9 (3.8-10.6) k/uL RBC 4.27 L (4.30-5.90) m/uL Hgb 13.4 (13.0-17.5) gm/dL Hct 39.1 (39.0-53.0) % MCV 91.5 (80.0-100.0) fL MCH 31.3 (25.0-35.0) pg MCHC 34.3 (31.0-37.0) g/dL RDW 13.1 (11.5-15.5) % Plt Count 185 (150-450) k/uL Neutrophils % 58 % Lymphocytes % 29 % Monocytes % 6 % Eosinophils % 4 % Basophils % 1 % Neutrophils # 4.0 (1.3-7.7) k/uL Lymphocytes # 2.0 (1.0-4.8) k/uL Monocytes # 0.4 (0-1.0) k/uL Eosinophils # 0.3 (0-0.7) k/uL Basophils # 0.1 (0-0.2) k/uL PT (9.0-12.0) sec INR (<1.2) APTT (22.0-30.0) sec Sodium 145 (137-145) mmol/L Potassium 4.2 (3.5-5.1) mmol/L Chloride 107 (98-107) mmol/L Carbon Dioxide 26 (22-30) mmol/L Anion Gap 12 mmol/L BUN 12 (9-20) mg/dL Creatinine 0.93 (0.66-1.25) mg/dL Est GFR (MDRD) Af Amer >60 (>60 ml/min/1.73 sqM) Est GFR (MDRD) Non-Af >60 (>60 ml/min/1.73 sqM) Glucose 196 H (74-99) mg/dL Calcium 9.6 (8.4-10.2) mg/dL Magnesium 1.5 L (1.6-2.3) mg/dL Total Bilirubin 0.6 (0.2-1.3) mg/dL AST 24 (17-59) U/L ALT 40 (21-72) U/L Alkaline Phosphatase 75 (38-126) U/L Total Creatine Kinase 73 (55-170) U/L CK-MB (CK-2) 0.4 (0.0-2.4) ng/mL CK-MB (CK-2) Rel Index 0.5 Troponin I <0.012 (0.000-0.034) ng/mL Total Protein 6.4 (6.3-8.2) g/dL Albumin 3.9 (3.5-5.0) g/dL Lipase 174 (23-300) U/L 10/25/17 Range/Units 08:15 WBC (3.8-10.6) k/uL RBC (4.30-5.90) m/uL Hgb (13.0-17.5) gm/dL Hct (39.0-53.0) % MCV (80.0-100.0) fL MCH (25.0-35.0) pg MCHC (31.0-37.0) g/dL RDW (11.5-15.5) % Plt Count (150-450) k/uL Neutrophils % % Lymphocytes % % Monocytes % % Eosinophils % % Basophils % % Neutrophils # (1.3-7.7) k/uL Lymphocytes # (1.0-4.8) k/uL Monocytes # (0-1.0) k/uL Eosinophils # (0-0.7) k/uL Basophils # (0-0.2) k/uL PT 10.1 (9.0-12.0) sec INR 1.0 (<1.2) APTT 22.6 (22.0-30.0) sec Sodium (137-145) mmol/L Potassium (3.5-5.1) mmol/L Chloride (98-107) mmol/L Carbon Dioxide (22-30) mmol/L Anion Gap mmol/L BUN (9-20) mg/dL Creatinine (0.66-1.25) mg/dL Est GFR (MDRD) Af Amer (>60 ml/min/1.73 sqM) Est GFR (MDRD) Non-Af (>60 ml/min/1.73 sqM) Glucose (74-99) mg/dL Calcium (8.4-10.2) mg/dL Magnesium (1.6-2.3) mg/dL Total Bilirubin (0.2-1.3) mg/dL AST (17-59) U/L ALT (21-72) U/L Alkaline Phosphatase (38-126) U/L Total Creatine Kinase (55-170) U/L CK-MB (CK-2) (0.0-2.4) ng/mL CK-MB (CK-2) Rel Index Troponin I (0.000-0.034) ng/mL Total Protein (6.3-8.2) g/dL Albumin (3.5-5.0) g/dL Lipase (23-300) U/L - Radiology Data Radiology results: report reviewed (Chest x-ray and KUB are negative), image reviewed Critical Care Time Critical Care Time: Yes Total Critical Care Time: 31 Disposition Clinical Impression: Chest pain Disposition: ADMITTED IP TO THIS [facility] Condition: Fair Referrals: Timur Cruz MD [Primary Care Provider] - 1-2 days
[2017-10-25 08:29] LABS: Basophils # (A) 0.1 k/uL (0-0.2); Basophils % (A) 1 %; Eosinophils # (A) 0.3 k/uL (0-0.7); Eosinophils % (A) 4 %; HCT 39.1 % (39.0-53.0); HGB 13.4 gm/dL (13.0-17.5); Lymphocytes % (A) 29 %; MCH 31.3 pg (25.0-35.0); MCHC 34.3 g/dL (31.0-37.0); MCV 91.5 fL (80.0-100.0); Mean Platelet Volume 7.4; Monocytes # (A) 0.4 k/uL (0-1.0); Monocytes % (A) 6 %; Neutrophils % (A) 58 %; Platelet Count 185 k/uL (150-450); RBC 4.27 m/uL (4.30-5.90); RDW 13.1 % (11.5-15.5); WBC 6.9 k/uL (3.8-10.6)
[2017-10-25 08:37] LABS: Partial Thromboplastin Time 22.6 sec (22.0-30.0); Prothrombin Time 10.1 sec (9.0-12.0)
[2017-10-25 08:54] LABS: ALT 40 U/L (21-72); AST 24 U/L (17-59); Albumin 3.9 g/dL (3.5-5.0); Alkaline Phosphatase 75 U/L (38-126); Anion Gap 12 mmol/L; Blood Urea Nitrogen 12 mg/dL (9-20); Calcium 9.6 mg/dL (8.4-10.2); Carbon Dioxide 26 mmol/L (22-30); Chloride 107 mmol/L (98-107); Creatine Kinase 73 U/L (55-170); Glucose 196 mg/dL (74-99); Lipase 174 U/L (23-300); Magnesium 1.5 mg/dL (1.6-2.3); Potassium 4.2 mmol/L (3.5-5.1); Sodium 145 mmol/L (137-145); Total Bilirubin 0.6 mg/dL (0.2-1.3); Total Protein 6.4 g/dL (6.3-8.2)
--- NOTE | 2017-10-25 09:04 | XR ---
EXAMINATION TYPE: XR chest 2V DATE OF EXAM: 10/25/2017 HISTORY: Chest Pain. REFERENCE: Previous study dated 10/27/2016. FINDINGS: There is a partial eventration right hemidiaphragm. The lungs are clear. Pleural spaces are clear. The heart is not enlarged. IMPRESSION: NO ACUTE INTRATHORACIC ABNORMALITY.
[2017-10-25 09:06] LABS: Creatine Kinase MB 0.4 ng/mL (0.0-2.4); Troponin I <0.012 ng/mL (0.000-0.034)
--- NOTE | 2017-10-25 09:06 | XR ---
EXAMINATION TYPE: XR KUB , 2 VIEWS DATE OF EXAM ORDERED: 10/25/2017 HISTORY: Pain. COMPARISON: Previous study dated 11/12/2016. FINDINGS: There is a partial eventration of the right hemidiaphragm. The lung bases are clear. There is been a previous interpedicular fusion with spacer placement at L5-S1. The abdominal gas pattern is normal. There is no evidence of obstruction or free air. No unusual calc ifications are seen. IMPRESSION: NO ACUTE INTRA-ABDOMINAL ABNORMALITY.
[2017-10-25] MEDS ORDERED: ONDANSETRON 4 MG/2 ML VIAL IVP PRN (09:10)
[2017-10-25] MEDS ORDERED: ONDANSETRON 4 MG/2 ML VIAL IVP STA (09:10)
[2017-10-25] MEDS ORDERED: HYDROmorphone 0.5 MG/0.5 ML SYRINGE IVP STA (09:10)
[2017-10-25] MEDS ORDERED: NITROGLYCERIN SL TABS 0.4 MG TAB SUBLINGUAL PRN (10:13)
[2017-10-25] MEDS ORDERED: ASPIRIN 81 MG PO STA (10:13)
[2017-10-25] MEDS ORDERED: HEPARIN SODIUM,PORCINE 5,000 UNIT/ML 1 ML VIAL IV ONE (10:13)
[2017-10-25] MEDS ORDERED: HEPARIN SODIUM,PORCINE 5,000 UNIT/ML 1 ML VIAL IV PRN (10:13)
[2017-10-25] MEDS ORDERED: NITROGLYCERIN OINT 1 INCH/GM PACKET TOPICAL STA (10:14)
[2017-10-25] MEDS: HEPARIN SOD,PORK IN 0.45% NACL 25,000 UNIT in 0.45% NACL 1 500ML.BAG IV SCH (10:53)
[2017-10-25] MEDS ORDERED: HYDROcodone/APAP 7.5-325MG 1 EACH TAB PO PRN (12:56)
[2017-10-25] MEDS ORDERED: TEMAZEPAM 15 MG CAP PO PRN (12:57)
[2017-10-25 13:46] LABS: Glucose,Whole Blood 171 mg/dL (75-99)
--- NOTE | 2017-10-25 13:58 | HP ---
HISTORY AND PHYSICAL Mr. Wright is a 66-year-old gentleman who presents to the emergency room with chief complaint of chest pain. HISTORY OF PRESENT ILLNESS: The patient this morning, pretty much woke up with severe chest pain across the upper anterior chest that lasted for quite a while. His nitroglycerin minimally had some improvement in it. The patient also has had some left sided flank pain and left groin pain and believes he recently passed a kidney stone. The patient does have underlying cardiac history. The patient has had no definite fever or chills. He has had some nausea. According to the and patient, he has had some increasing shortness of breath for several weeks now and intermittent chest pain not quite as severe as what he described in the ER, but that has been coming and going with different amounts of activity. The patient does have past history of atherosclerotic heart disease for which she has had previous cardiac stenting back in 2013, also risk factors with hypertension, hyperlipidemia, type 2 diabetes. He also has gastroesophageal reflux. He does have history of recurrent kidney stones that have been symptomatic. There is history of BPH and underlying osteoarthritis specifically of the lumbar spine. He has had previous back surgery and a previous appendectomy. He had a colonoscopy in 2008 and cardiac stenting back in 2013. ALLERGIES: No known drug allergies. HOME MEDICATIONS: Metformin 500 mg twice a day, Flomax 0.8 mg daily, nitroglycerin sublingual 0.4 mg p.r.n. for chest pain. Nasonex nasal sprays 2 sprays at bedtime, Glucotrol XL or glipizide 10 mg twice a day and lisinopril 10 mg daily for blood pressure. He is on [place] 7.5/325 one q.6 hours p.r.n. pain. Nexium 22.3 mg daily, atorvastatin 40 mg at bedtime, atenolol 50 mg at bedtime, aspirin 325 daily, Precose 50 mg twice a day , and Xanax 0.25 twice a day. Apparently is also on Actos 30 mg at bedtime and Zantac 150 mg at bedtime, singular 10 mg at bedtime and Januvia 100 mg at bedtime. The patient has also had right shoulder surgery. REVIEW OF SYSTEMS: As mentioned in history of present illness he has had no unusual headache or visual disturbances. He has had nausea but no actual vomiting. Abdominal pain that has been more left lower quadrant abdominal pain that radiates to the back at times. No unusual dysuria or urinary or bowel symptoms, but he did pass a stone apparently yesterday and no unusual edema or skin rashes. FAMILY HISTORY: Apparently father had brain cancer. SOCIAL HISTORY: The patient does not smoke. Does not drink to excess. Lives locally with his in the area. PHYSICAL EXAMINATION: He is alert and oriented, in bed, in no acute distress. His temperature was 99.3, down to 97.8, pulse is in the upper 50s to 60, respirations 16, blood pressure has been elevated at 188/83, but is now down to 154/81, and he is 97% saturated on 2 L nasal cannula. HEENT: Unremarkable. No adenopathy, thyromegaly detected. No definite bruits. Lungs were clear to auscultation. HEART: Regular without murmurs appreciated. Abdomen is generally soft without rebound, guarding, or masses. No organomegaly. Extremities revealed no edema. Genital and rectal exam deferred. Neurologic: He is alert and oriented. Moving all extremities without focal deficits. LAB TESTING: White count of 6.9, hemoglobin 13.2, platelet count of 186. His INR was 1.0. Electrolytes were normal. Potassium was 4.2, his GFR is greater than 60 with a BUN of 12 and creatinine of 0.93, random blood sugar was 196, magnesium is mildly low at 1.5. Bilirubin normal at 0.6. Liver function tests were all normal. Albumin 3.9. His CK was low at 73. Troponin also low at less than 0.012. The patient had an EKG which reveals normal sinus rhythm, possibility of an old inferior infarct noted, but no acute ischemic changes. Normal sinus rate and rhythm. He did have a KUB of the bladder, which basically was unremarkable without acute abnormality. No definite stones. Chest x-ray did not show any acute changes noted. IMPRESSION: 1. Unstable angina with severe chest pain. It has been somewhat recurrent in the history of someone with multiple risk factors as stated above in the past medical history along with previous stenting. 2. Left lower quadrant and back pain, likely related to kidney stones. 3. Mildly low magnesium level and other past medical history as stated in history of present illness. PLANS: At this point, the patient will be brought into the hospital and consult with Cardiology and urology obtained. Analgesics. Heparin has been administered. Continue his medications for his blood pressure, cholesterol, diabetes. We will hold though the metformin and further workup pending results of above with serial EKG and enzymes and career development consultant's evaluations and opinion. MELODY / MAUREENN: [id number] / MTDD
[2017-10-25 15:05] VITALS: BMI 28.5
[2017-10-25] MEDS: HYDROmorphone 2 MG/ML 1 ML SYRINGE IVP PRN ×2 (15:05→23:25)
[2017-10-25 15:21] LABS: Creatine Kinase 65 U/L (55-170)
[2017-10-25 15:34] LABS: Creatine Kinase MB 0.4 ng/mL (0.0-2.4); Troponin I <0.012 ng/mL (0.000-0.034)
[2017-10-25] MEDS: NITROGLYCERIN OINT 1 INCH/GM PACKET TOPICAL SCH ×3 (16:32→23:48)
[2017-10-25 16:53] LABS: Glucose,Whole Blood 204 mg/dL (75-99)
[2017-10-25] MEDS: ACARBOSE 25 MG TAB PO SCH (17:48)
[2017-10-25 19:58] LABS: Creatine Kinase 66 U/L (55-170)
[2017-10-25] MEDS: glipiZIDE 5 MG TAB PO SCH (20:06)
[2017-10-25] MEDS: METOPROLOL TARTRATE 25 MG TAB PO SCH (20:06)
[2017-10-25] MEDS: ALPRAZolam 0.25 MG TAB PO SCH (20:06)
[2017-10-25] MEDS: ATORVASTATIN 40 MG TAB PO SCH (20:06)
[2017-10-25] MEDS: FLUTICASONE 50MCG/SPRAY NASAL 16GM EA NOSTRIL SCH (20:06)
[2017-10-25 20:11] LABS: Creatine Kinase MB 0.5 ng/mL (0.0-2.4); Troponin I <0.012 ng/mL (0.000-0.034)
[2017-10-25 20:54] LABS: Glucose,Whole Blood 202 mg/dL (75-99)
[2017-10-26 06:59] LABS: Glucose,Whole Blood 220 mg/dL (75-99)
[2017-10-26 07:13] LABS: Mean Platelet Volume 8.1; Platelet Count 178 k/uL (150-450)
[2017-10-26 07:59] LABS: Cholesterol 117 mg/dL (<200); HDL Cholesterol 42 mg/dL (40-60); LDL Cholesterol,Calculated 33 mg/dL (0-99); Triglycerides 212 mg/dL (<150)
[2017-10-26] MEDS ORDERED: ASPIRIN 325 MG TAB PO SCH (09:00)
--- NOTE | 2017-10-26 09:28 | P.CRDCN ---
History of Present Illness Consult date: 10/26/17 Consult reason: chest pain History of present illness: Mr. Wright is a 66 -year-old male patient past medical history significant for known chronic stable coronary artery disease, dyslipidemia, hypertension. He states yesterday he was woken up out of sleep with tightness across his entire chest. It radiated to the back and was associated with shortness of breath. The pain seemed worse when he was up walking around and when he sat down it seemed to get better. Although since he's been hospitalized he has had multiple bouts of this pain while at rest in bed. He states he has also been struggling with a kidney stone on the left side. He is complaining of left flank pain for the last 3 days. He states that he passed a stone 2 nights ago but is still feeling residual pain in the left flank and groin region. He denies associated dizziness, palpitations, nausea or vomiting. He follows with Dr. West in the office. Most recent echocardiogram reveals preserved left ventricular systolic function with EF 55% . Most recent cardiac catheterization 2014 reveals RCA with multiple stents, left main with mild nonobstructive distal stenosis, LAD with mild nonobstructive ostial stenosis and circumflex artery with no evidence of disease. At that time medical management was recommended. EKG reveals sinus mechanism with no acute ST or T-wave abnormalities. Chest x-ray negative for acute cardiopulmonary. Laboratory data has been reviewed cardiac enzymes negative 3. Current cardiac medications include lisinopril 10 mg daily, atorvastatin 40 mg daily, atenolol 50 mg daily and aspirin 325 milligrams daily. Review of systems At the time of my exam: CONSTITUTIONAL: Denies fever. Denies chills. EYES: Denies blurred vision. Denies vision changes. Denies eye pain. EARS, NOSE, MOUTH & THROAT: Denies headache. Denies sore throat. Denies ear pain. CARDIOVASCULAR: Denies chest pain. Denies shortness of breath. Denies orthopnea. Denies PND. Denies palpitations. RESPIRATORY: Denies cough. GASTROINTESTINAL: Denies abdominal pain. Denies diarrhea. Denies constipation. Denies nausea. Denies vomiting. MUSCULOSKELETAL: Denies myalgias. INTEGUMENTARY: Denies pruitis. Denies rash. NEUROLOGIC: Denies numbness. Denies tingling. Denies weakness. PSYCHIATRIC: Denies anxiety. Denies depression. ENDOCRINE: Denies fatigue. Denies weight change. Denies polydipsia. Denies polyurina. GENITOURINARY: Denies burning, hematuria or urgency with micturation. HEMATOLOGIC: Denies history of anemia. Denies bleeding. Physical exam Blood pressure 147/63 heart rate 67 afebrile GENERAL: This is a 66-year-old male in no apparent distress at the time of my examination. HEENT: Head is atraumatic, normocephalic. Pupils are equal, round. Sclerae anicteric. Conjunctivae are clear. Mucous membranes of the mouth are moist. Neck is supple. There is no jugular venous distention. No carotid bruit is heard. LUNGS: Clear to auscultation no wheezes, rales or rhonchi. No chest wall tenderness is noted on palpation or with deep breathing. HEART: Regular rate and rhythm without murmurs, rubs or gallops. S1 and S2 heard. ABDOMEN: Soft, nontender. Bowel sounds are heard. No organomegaly noted. EXTREMITIES: No evidence of peripheral edema and no calf tenderness noted. VASCULAR: Radial and dorsalis pedis pulses palpated, no evidence of clubbing. NEUROLOGIC: Patient is awake, alert and oriented x3. ASSESSMENT 1. Unstable angina 2. Known coronary artery disease 3. Dyslipidemia 4. Hypertension 5. Diabetes mellitus PLAN Obtain 2-D echocardiogram and Doppler study to assess cardiac structure and function. Continue with heparin infusion. Recommend cardiac catheterization his primary field nurse in the morning. Continue with telemetry monitoring. Continue lisinopril, atorvastatin, atenolol and aspirin as previously ordered. Further recommendations based upon clinical course. Nurse Practitioner note has been reviewed, I agree with a documented findings and plan of care. Patient was seen and examined. Review of Systems CONSTITUTIONAL: Denies fever. Denies chills. EYES: Denies blurred vision. Denies vision changes. Denies eye pain. EARS, NOSE, MOUTH & THROAT: Denies headache. Denies sore throat. Denies ear pain. CARDIOVASCULAR: Complains of anterior chest pain with shortness of breath. Denies orthopnea. Denies PND. Denies palpitations. RESPIRATORY: Denies cough. GASTROINTESTINAL: Complains of left flank pain. Denies diarrhea. Denies constipation. Denies nausea. Denies vomiting. MUSCULOSKELETAL: Denies myalgias. INTEGUMENTARY: Denies pruitis. Denies rash. NEUROLOGIC: Denies numbness. Denies tingling. Denies weakness. PSYCHIATRIC: Denies anxiety. Denies depression. ENDOCRINE: Denies fatigue. Denies weight change. Denies polydipsia. Denies polyurina. GENITOURINARY: Denies burning, hematuria or urgency with micturation. HEMATOLOGIC: Denies history of anemia. Denies bleeding. Past Medical History Past Medical History: Coronary Artery Disease (CAD), Cancer, Chest Pain / Angina , Diabetes Mellitus, GERD/Reflux, Hyperlipidemia, Hypertension, Myocardial Infarction ([place]), Osteoarthritis (OA), Prostate Disorder, Skin Disorder Additional Past Medical History / Comment(s): Hx. KIDNEY STONES, occasional SOB recently, diff swallowing-feels like in throat, diarrhea, dry skin, hx bladder cancer Last Myocardial Infarction Date:: 2004 History of Any Multi-Drug Resistant Organisms: None Reported Past Surgical History: Appendectomy, Back Surgery, Ear Surgery, Heart Catheterization, Heart Catheterization With Stent, Orthopedic Surgery Additional Past Surgical History / Comment(s): METAL SCREWS IN BACK, RIGHT EAR TUBE/now gone, EPIDURAL PAIN SHOTS, previous stents 2004,2005, LITHOTRIPSY, rt shoulder rotator cuff Past Anesthesia/Blood Transfusion Reactions: No Reported Reaction Date of Last Stent Placement:: 05/2014 Past Psychological History: Anxiety Smoking Status: Never smoker Past Alcohol Use History: Rare Past Drug Use History: None Reported - Past Family History Father Family Medical History: Cancer Additional Family Medical History / Comment(s): BRAIN Mother Family Medical History: Chest Pain / Angina, Coronary Artery Disease (CAD), Dementia, Diabetes Mellitus, Hyperlipidemia, Hypertension, Respiratory Disorder Additional Family Medical History / Comment(s): CABGx4 (No [place]), ruptured colon Medications and Allergies Home Medications Medication Instructions Recorded Confirmed Type ALPRAZolam [Xanax] 0.25 mg PO BID 05/31/14 10/25/17 History Acarbose [Precose] 50 mg PO BID 05/31/14 10/25/17 History Aspirin EC [Ecotrin] 325 mg PO DAILY 05/31/14 10/25/17 History Atenolol [Tenormin] 50 mg PO HS 05/31/14 10/25/17 History Atorvastatin [Lipitor] 40 mg PO HS 05/31/14 10/25/17 History Lisinopril [Zestril] 10 mg PO DAILY 05/31/14 10/25/17 History Mometasone Furoate [Nasonex Nasal 2 spray EA NOSTRIL HS 05/31/14 10/25/17 History [place]] Tamsulosin HCl [Flomax] 0.8 mg PO DAILY 05/31/14 10/25/17 History glipiZIDE [Glucotrol XL] 10 mg PO BID 05/31/14 10/25/17 History Nitroglycerin Sl Tabs [Nitrostat] 0.4 mg SUBLINGUAL Q5M PRN 04/20/15 10/25/17 History HYDROcodone/APAP 7.5-325MG [[place] 1 tab PO Q6HR PRN #90 tab 10/15/15 10/25/17 Rx 7.5-325] Esomeprazole Magnesium [NexIUM 22.3 mg PO DAILY 10/27/16 10/25/17 History 24Hr] metFORMIN HCL [Glucophage] 500 mg PO BID 10/25/17 10/25/17 History Allergies Allergy/AdvReac Type Severity Reaction Status Date / Time No Known Allergies Allergy Verified 10/25/17 10:19 Physical Exam Vitals: Vital Signs Temp Pulse Pulse Resp BP BP Pulse Ox 10/26/17 04:00 98.5 F 61 16 140/58 99 10/26/17 03:14 58 L 18 10/26/17 00:00 62 18 10/25/17 23:51 98.7 F 62 18 158/73 97 10/25/17 20:00 60 16 10/25/17 19:35 97.8 F 57 L 16 136/59 96 10/25/17 16:00 98.1 F 54 L 16 137/65 97 10/25/17 13:14 97.7 F 53 L 16 154/73 98 10/25/17 13:00 97.8 F 56 L 16 154/81 97 10/25/17 11:52 99.3 F 58 L 16 188/83 97 10/25/17 10:06 59 L 16 173/74 98 10/25/17 09:27 60 16 179/76 98 10/25/17 07:56 97 F L 60 16 185/81 98 Intake and Output 10/25/17 10/26/17 10/26/17 22:59 06:59 14:59 Intake Total 953.758 925 Balance 953.758 925 Intake: IV 90 200 Heparin Sod,Pork in 0.45% 90 200 NaCl 25,000 unit In 0.45 % NaCl 1 500ml.bag @ 11.8 UNITS/KG/HR 20.01 mls/hr IV .Q24H ARTHUR Rx#: [id number] Intake, IV Titration 263.758 725 Amount Heparin Sod,Pork in 0.45% 183.758 NaCl 25,000 unit In 0.45 % NaCl 1 500ml.bag @ 11.8 UNITS/KG/HR 20.01 mls/hr IV .Q24H ARTHUR Rx#: [id number] Sodium Chloride 0.9% 1, 80 725 000 ml @ 100 mls/hr IV . Q10H STA Rx#:[id number] Oral 600 Other: Voiding Method Toilet Toilet # Voids 2 3 Results 10/26/17 06:24 10/25/17 08:15 Cardiac Enzymes 10/25/17 10/25/17 10/25/17 Range/Units 08:15 08:15 14:16 AST 24 (17-59) U/L CK-MB (CK-2) 0.4 0.4 (0.0-2.4) ng/mL Troponin I <0.012 <0.012 (0.000-0.034) ng/mL 10/25/17 Range/Units 19:24 AST (17-59) U/L CK-MB (CK-2) 0.5 (0.0-2.4) ng/mL Troponin I <0.012 (0.000-0.034) ng/mL Coagulation 10/25/17 10/25/17 10/26/17 Range/Units 08:15 19:24 06:24 PT 10.1 (9.0-12.0) sec APTT 22.6 35.4 H 48.8 H (22.0-30.0) sec CBC 10/25/17 10/26/17 Range/Units 08:15 06:24 WBC 6.9 (3.8-10.6) k/uL RBC 4.27 L (4.30-5.90) m/uL Hgb 13.4 (13.0-17.5) gm/dL Hct 39.1 (39.0-53.0) % Plt Count 185 178 (150-450) k/uL Comprehensive Metabolic Panel 10/25/17 Range/Units 08:15 Sodium 145 (137-145) mmol/L Potassium 4.2 (3.5-5.1) mmol/L Chloride 107 (98-107) mmol/L Carbon Dioxide 26 (22-30) mmol/L BUN 12 (9-20) mg/dL Creatinine 0.93 (0.66-1.25) mg/dL Glucose 196 H (74-99) mg/dL Calcium 9.6 (8.4-10.2) mg/dL AST 24 (17-59) U/L ALT 40 (21-72) U/L Alkaline Phosphatase 75 (38-126) U/L Total Protein 6.4 (6.3-8.2) g/dL Albumin 3.9 (3.5-5.0) g/dL Current Medications Generic Name Dose Route Start Last Admin Trade Name Freq PRN Reason Stop Dose Admin Acarbose 50 mg 10/25/17 17:30 10/25/17 17:48 Precose PO 50 mg BID-W/MEALS ARTHUR Administration Hydrocodone Bitart/Acetaminophen 1 each 10/25/17 12:56 [place] 7.5-325 PO Q6HR PRN Moderate to Severe Pain Alprazolam 0.25 mg 10/25/17 21:00 10/25/17 20:06 Xanax PO 0.25 mg BID ARTHUR Administration Aspirin 325 mg 10/26/17 09:00 Aspirin PO DAILY ARTHUR Atorvastatin Calcium 40 mg 10/25/17 21:00 10/25/17 20:06 Lipitor PO 40 mg HS ARTHUR Administration Fluticasone Propionate 2 spray 10/25/17 21:00 10/25/17 20:06 Flonase Nasal [place] EA NOSTRIL 2 spray HS ARTHUR Administration Glipizide 5 mg 10/25/17 21:00 10/25/17 20:06 Glucotrol PO 5 mg BID ARTHUR Administration Heparin Sodium (Porcine) 0 unit 10/25/17 10:13 Heparin IV Q6HR PRN Low PTT Protocol Hydromorphone HCl 1 mg 10/25/17 09:10 10/25/17 23:25 Dilaudid IVP 1 mg Q4HR PRN Administration Pain Heparin Sodium/Sodium Chloride 500 mls @ 20.01 mls/hr 10/25/17 10:15 20:04 25,000 unit/ Sodium Chloride IV 14.8 units/kg/hr .Q24H ARTHUR 25.1 mls/hr Protocol Titration 11.8 UNITS/KG/HR Lisinopril 10 mg 10/26/17 09:00 Zestril PO DAILY [facility] Metoprolol Tartrate 25 mg 10/25/17 21:00 10/25/17 20:06 Lopressor PO 25 mg BID ARTHUR Administration Nitroglycerin 0.4 mg 10/25/17 10:13 Nitrostat SUBLINGUAL Q5M PRN Chest Pain Nitroglycerin 1 inch 10/25/17 12:00 10/25/17 23:48 Nitro-Bid Oint TOPICAL 1 inch Q6HR ARTHUR Administration Ondansetron HCl 4 mg 10/25/17 09:10 Zofran IVP Q6HR PRN Nausea And Vomiting Pantoprazole Sodium 40 mg 10/26/17 07:30 Protonix PO AC-BRKFST [facility] Tamsulosin HCl 0.8 mg 10/26/17 09:00 Flomax PO DAILY [facility] Temazepam 15 mg 10/25/17 12:57 Restoril PO HS PRN Insomnia Intake and Output 10/25/17 10/26/17 10/26/17 22:59 06:59 14:59 Intake Total 953.758 925 Balance 953.758 925 Intake: IV 90 200 Heparin Sod,Pork in 0.45% 90 200 NaCl 25,000 unit In 0.45 % NaCl 1 500ml.bag @ 11.8 UNITS/KG/HR 20.01 mls/hr IV .Q24H ARTHUR Rx#: [id number] Intake, IV Titration 263.758 725 Amount Heparin Sod,Pork in 0.45% 183.758 NaCl 25,000 unit In 0.45 % NaCl 1 500ml.bag @ 11.8 UNITS/KG/HR 20.01 mls/hr IV .Q24H ARTHUR Rx#: [id number] Sodium Chloride 0.9% 1, 80 725 000 ml @ 100 mls/hr IV . Q10H STA Rx#:[id number] Oral 600 Other: Voiding Method Toilet Toilet # Voids 2 3 10/26/17 06:24 10/25/17 08:15
[2017-10-26] MEDS: HYDROmorphone 2 MG/ML 1 ML SYRINGE IVP PRN ×3 (09:38→22:19)
[2017-10-26] MEDS: TAMSULOSIN 0.4 MG CAP.ER.24H PO SCH (09:38)
[2017-10-26] MEDS: ASPIRIN 325 MG TAB PO SCH (09:38)
[2017-10-26] MEDS: glipiZIDE 5 MG TAB PO SCH ×2 (09:38→22:18)
[2017-10-26] MEDS: ACARBOSE 25 MG TAB PO SCH ×2 (09:38→19:01)
[2017-10-26] MEDS: PANTOPRAZOLE 40 MG TABLET PO SCH (09:38)
[2017-10-26] MEDS: ALPRAZolam 0.25 MG TAB PO SCH ×2 (09:38→22:18)
[2017-10-26] MEDS: NITROGLYCERIN OINT 1 INCH/GM PACKET TOPICAL SCH ×4 (10:46→22:32)
[2017-10-26] MEDS: HEPARIN SOD,PORK IN 0.45% NACL 25,000 UNIT in 0.45% NACL 1 500ML.BAG IV SCH (10:55)
[2017-10-26] MEDS: LISINOPRIL 10 MG TAB PO SCH (10:56)
[2017-10-26] MEDS: METOPROLOL TARTRATE 25 MG TAB PO SCH ×2 (10:56→22:19)
--- NOTE | 2017-10-26 11:57 | P.GSCN ---
History of Present Illness Consult date: 10/26/17 Reason for Consult: Kidney Stones Requesting physician: Timur Cruz History of present illness: The patient is a [id number] male with a history of urolithiasis, who underwent ureteroscopic removal of multiple renal calculi in July 2015. A superficial bladder tumor was resected at that time. 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 He has had no bladder cancer recurrences, and is due to undergo repeat cystoscopy in February. A computed tomography scan in November 2016 revealed bilateral renal calculi. A right renal calculus was approximately 1 cm in size, but the remaining calculi were 5 mm or less in size. He has recently experienced left flank pain radiating to the left lower quadrant for approximately 5 days. He passed a calculus 2 days ago but his pain has persisted. He is currently admitted for evaluation of chest pain, and is scheduled to undergo a cardiac catheterization tomorrow. Review of Systems - Constitutional Denies chills, Denies fever - Cardiovascular Reports chest pain - Gastrointestinal Denies nausea, Denies vomiting - Genitourinary Reports flank pain, Reports kidney stones, Denies hematuria Past Medical History Past Medical History: Coronary Artery Disease (CAD), Cancer, Chest Pain / Angina , Diabetes Mellitus, GERD/Reflux, Hyperlipidemia, Hypertension, Myocardial Infarction ([place]), Osteoarthritis (OA), Prostate Disorder, Skin Disorder Additional Past Medical History / Comment(s): Hx. KIDNEY STONES, occasional SOB recently, diff swallowing-feels like in throat, diarrhea, dry skin, hx bladder cancer Last Myocardial Infarction Date:: 2004 History of Any Multi-Drug Resistant Organisms: None Reported Past Surgical History: Appendectomy, Back Surgery, Ear Surgery, Heart Catheterization, Heart Catheterization With Stent, Orthopedic Surgery Additional Past Surgical History / Comment(s): METAL SCREWS IN BACK, RIGHT EAR TUBE/now gone, EPIDURAL PAIN SHOTS, previous stents 2004,2005, LITHOTRIPSY, rt shoulder rotator cuff Past Anesthesia/Blood Transfusion Reactions: No Reported Reaction Date of Last Stent Placement:: 05/2014 Past Psychological History: Anxiety Smoking Status: Never smoker Past Alcohol Use History: Rare Past Drug Use History: None Reported - Past Family History Father Family Medical History: Cancer Additional Family Medical History / Comment(s): BRAIN Mother Family Medical History: Chest Pain / Angina, Coronary Artery Disease (CAD), Dementia, Diabetes Mellitus, Hyperlipidemia, Hypertension, Respiratory Disorder Additional Family Medical History / Comment(s): CABGx4 (No [place]), ruptured colon Medications and Allergies Home Medications Medication Instructions Recorded Confirmed Type ALPRAZolam [Xanax] 0.25 mg PO BID 05/31/14 10/25/17 History Acarbose [Precose] 50 mg PO BID 05/31/14 10/25/17 History Aspirin EC [Ecotrin] 325 mg PO DAILY 05/31/14 10/25/17 History Atenolol [Tenormin] 50 mg PO HS 05/31/14 10/25/17 History Atorvastatin [Lipitor] 40 mg PO HS 05/31/14 10/25/17 History Lisinopril [Zestril] 10 mg PO DAILY 05/31/14 10/25/17 History Mometasone Furoate [Nasonex Nasal 2 spray EA NOSTRIL HS 05/31/14 10/25/17 History [place]] Tamsulosin HCl [Flomax] 0.8 mg PO DAILY 05/31/14 10/25/17 History glipiZIDE [Glucotrol XL] 10 mg PO BID 05/31/14 10/25/17 History Nitroglycerin Sl Tabs [Nitrostat] 0.4 mg SUBLINGUAL Q5M PRN 04/20/15 10/25/17 History HYDROcodone/APAP 7.5-325MG [[place] 1 tab PO Q6HR PRN #90 tab 10/15/15 10/25/17 Rx 7.5-325] Esomeprazole Magnesium [NexIUM 22.3 mg PO DAILY 10/27/16 10/25/17 History 24Hr] metFORMIN HCL [Glucophage] 500 mg PO BID 10/25/17 10/25/17 History Allergies Allergy/AdvReac Type Severity Reaction Status Date / Time No Known Allergies Allergy Verified 10/25/17 10:19 Surgical - Exam Vital Signs Temp Pulse Resp BP Pulse Ox 97 F L 60 16 185/81 98 10/25/17 07:56 10/25/17 07:56 10/25/17 07:56 10/25/17 07:56 10/25/17 07:56 - General well developed, well nourished, no distress - Abdomen Abdomen: soft, tender (mild LLQ tenderness), no masses, no guarding, no rebound , no distended - Genitourinary normal penis with no external lesions, testicles non-tender - Psychiatric oriented to time, oriented to person, oriented to place, speech is normal, memory intact Results - Labs 10/26/17 06:24 10/25/17 08:15 Abnormal Lab Results - Last 24 Hours (Table) 10/25/17 10/25/17 10/25/17 Range/Units 13:42 16:52 19:24 APTT 35.4 H (22.0-30.0) sec POC Glucose (mg/dL) 171 H 204 H (75-99) mg/dL Triglycerides (<150) mg/dL 10/25/17 10/26/17 10/26/17 Range/Units 20:39 06:24 06:24 APTT 48.8 H (22.0-30.0) sec POC Glucose (mg/dL) 202 H (75-99) mg/dL Triglycerides 212 H (<150) mg/dL 10/26/17 Range/Units 06:49 APTT (22.0-30.0) sec POC Glucose (mg/dL) 220 H (75-99) mg/dL Triglycerides (<150) mg/dL Diabetes panel 10/26/17 Range/Units 06:24 Triglycerides 212 H (<150) mg/dL HDL Cholesterol 42 (40-60) mg/dL - Imaging Abdominal x-ray: report reviewed, image reviewed Assessment and Plan (1) Calculus of kidney Current Visit: Yes Status: Acute Code(s): N20.0 - CALCULUS OF KIDNEY SNOMED Code(s): 31939208 Plan: He has known bilateral renal calculi, and has experienced left renal colic for the past 5 days. Given the persistence of the renal colic, a computed tomography scan of the abdomen and pelvis will be obtained for further evaluation.
[2017-10-26 11:59] LABS: Glucose,Whole Blood 365 mg/dL (75-99)
[2017-10-26] MEDS: INSULIN ASPART 100 UNIT/ML 1 ML 10 ML VIAL SQ SCH ×3 (13:23→22:21)
--- NOTE | 2017-10-26 13:46 | P.PN ---
Progress Note - Text The patient is a 66-year-old gentleman who presented yesterday to the emergency room with chest pain. Patient also has had left flank pain radiating to the left groin area with likely recent passage of renal stones. The patient has been evaluated by cardiology for his chest pain and nephrology for the kidney stones. Patient has continued to have chest pain and states that he had chest pain this morning getting up going to the bathroom that was relieved eventually with rest. Vital signs reveal temperature 98.2 with a pulse of 60 respirations 16. Blood pressure is 157/69 and he is 96% saturated on room air. Lung and heart exam was clear and regular. Abdomen is nontender. No unusual edema. No neurological changes. Laboratory Last troponin value was still less than 0.012 and CPK was 66. The total cholesterol was 117 with a LDL cholesterol as low as 33. Triglycerides 212. HDL 42. Blood sugars have been running in the 200 up to 365. He is on heparin and his PTT is 48.8 with a platelet count of 178. Impressions and plans Patient with unstable angina. Kidney stones. Likely in need of heart catheterization to determine coronary anatomy. Awaiting results of abdominal and pelvic CAT scan. Discussed with patient and at bedside today along with nursing staff. Cardiology and nephrology notes were regarded. As far as I am concerned patient can be considered an admission to the hospital.
--- NOTE | 2017-10-26 14:03 | CT ---
EXAMINATION TYPE: CT abdomen pelvis wo con DATE OF EXAM: 10/26/2017 COMPARISON: Previous study dated 11/12/2016 HISTORY: Generalized pain with history of stones CT DLP: 1082 mGycm Automated exposure control for dose reduction was used. FINDINGS: Visualized portions of the lungs are clear. There is no pleural or pericardial fluid. The h eart is not enlarged. There is coronary artery and other vascular calcifications. Within the abdomen, the gallbladder is partially collapsed. Liver and spleen are normal. Both adrenal glands are normal. There are multiple bilateral renal calculi. The largest is in the right middle pole calyx anteriorly and measures 9.4 mm. There is no evidence of hydronephrosis. Limited views of the pancreas are normal. There is no significant retroperitoneal, iliac or inguinal adenopathy. The bladder is unremarkable. There is mild diverticular change involving the sigmoid colon with scattered diverticula elsewhere th roughout the left side of the colon. I do not see radiographic evidence of diverticulitis. The append ix is not visualized. Small bowel loops are normal. There is an umbilical hernia containing fat only with a 2 cm mild. There is no free fluid and no free air. There is mild degenerative disc disease as well as hypertrophic spondylosis within the spine. There i s been a previous interpedicular fusion at L5 and S1. There is been a laminectomy at this level. IMPRESSION: 1. NONOBSTRUCTIVE, BILATERAL NEPHROLITHIASIS. 2. UNCOMPLICATED DIVERTICULOSIS OF THE SIGMOID COLON. 3. STABLE UMBILICAL HERNIA CONTAINING FAT ONLY. 4. DEGENERATIVE CHANGES WITHIN THE SPINE.
[2017-10-26 17:02] LABS: Glucose,Whole Blood 229 mg/dL (75-99)
[2017-10-26 19:23] LABS: Hemoglobin A1C 8.3 % (4.0-6.0)
[2017-10-26] MEDS: FLUTICASONE 50MCG/SPRAY NASAL 16GM EA NOSTRIL SCH (22:18)
[2017-10-26] MEDS: ATORVASTATIN 40 MG TAB PO SCH (22:18)
[2017-10-27] MEDS: NITROGLYCERIN OINT 1 INCH/GM PACKET TOPICAL SCH ×2 (05:07→20:02)
[2017-10-27 06:41] LABS: Glucose,Whole Blood 114 mg/dL (75-99)
[2017-10-27 07:24] LABS: Mean Platelet Volume 7.6; Platelet Count 180 k/uL (150-450)
[2017-10-27] MEDS ORDERED: SODIUM CHLORIDE 0.9% 1,000 ML in EMPTY BAG 1 BAG IV ONE (08:25)
[2017-10-27] MEDS ORDERED: ATORVASTATIN 80 MG TAB PO STA (08:27)
[2017-10-27] MEDS ORDERED: ATORVASTATIN 40 MG TAB PO STA (08:29)
--- NOTE | 2017-10-27 08:35 | P.PN ---
Progress Note - Text The patient is a 66-year-old gentleman who presented 2 days ago to the emergency room with chest pain. Pain was consistent with unstable angina. Patient also has had some left flank pain and history of nephrolithiasis. The patient has had some mild recurrent chest pain and he is presently on heparin and nitrates. The patient has been evaluated by cardiology and urology. Present vital signs reveal temperature 98.1 with a pulse of 62 and respirations 16. Blood pressure is 142/69 and he is 96% saturated on room air. Lung and heart exam was clear and regular. Abdomen is nontender. No unusual edema. No focal neurological changes. Blood sugar this morning is 114. His A1c was 8.3. Lipid profile is favorable with an LDL cholesterol of only 33. A platelet count was 180 with a PTT of 48 on heparin Impressions and plans Unstable angina. Patient just had his echocardiogram. Results pending Plans are likely for heart catheterization as discussed with the patient and at bedside. Continue present medications. CT of abdomen and pelvis revealed non-obstructive nephrolithiasis. Uncomplicated diverticulosis of the sigmoid colon. Stable umbilical hernia.
[2017-10-27] MEDS: INSULIN ASPART 100 UNIT/ML 1 ML 10 ML VIAL SQ SCH ×4 (08:41→22:06)
[2017-10-27] MEDS: ACARBOSE 25 MG TAB PO SCH ×2 (09:10→18:14)
[2017-10-27] MEDS: ASPIRIN 325 MG TAB PO SCH (09:11)
[2017-10-27] MEDS: PANTOPRAZOLE 40 MG TABLET PO SCH (09:11)
[2017-10-27] MEDS: LISINOPRIL 10 MG TAB PO SCH (09:12)
[2017-10-27] MEDS: glipiZIDE 5 MG TAB PO SCH ×2 (09:12→22:06)
[2017-10-27] MEDS: METOPROLOL TARTRATE 25 MG TAB PO SCH ×2 (09:12→22:06)
[2017-10-27] MEDS: HYDROmorphone 2 MG/ML 1 ML SYRINGE IVP PRN ×3 (09:17→22:06)
[2017-10-27] MEDS: ALPRAZolam 0.25 MG TAB PO SCH ×2 (09:27→22:05)
[2017-10-27] MEDS: TAMSULOSIN 0.4 MG CAP.ER.24H PO SCH (10:16)
[2017-10-27] MEDS: HEPARIN SOD,PORK IN 0.45% NACL 25,000 UNIT in 0.45% NACL 1 500ML.BAG IV SCH (10:19)
[2017-10-27] MEDS ORDERED: MIDAZOLAM 2 MG/2 ML VIAL ONE (10:32)
[2017-10-27] MEDS ORDERED: fentaNYL (PF) 50 MCG/ML 2 ML AMP ONE (10:32)
--- NOTE | 2017-10-27 10:39 | ECHOF ---
Referral Reason:chest pain MEASUREMENTS -------- HEIGHT: 172.7 cm WEIGHT: 85.3 kg BP: 125/60 RVIDd: 2.9 cm (< 3.3) IVSd: 1.2 cm (0.6 - 1.1) LVIDd: 5.4 cm (3.9 - 5.3) LVPWd: 1.0 cm (0.6 - 1.1) IVSs: 1.5 cm LVIDs: 4.4 cm LVPWs: 1.3 cm LA Diam: 4.2 cm (2.7 - 3.8) LAESV Index (A-L): 35.47 ml/m Ao Diam: 3.5 cm (2.0 - 3.7) AV Cusp: 2.3 cm (1.5 - 2.6) LA Diam: 4.4 cm (2.7 - 3.8) MV EXCURSION: 23.601 mm (> 18.000) MV EF SLOPE: 100 mm/s (70 - 150) EPSS: 0.5 cm MV E Jae: 0.60 m/s MV DecT: 233 ms MV A Jae: 0.75 m/s MV E/A Ratio: 0.81 RAP: 5.00 mmHg RVSP: 19.39 mmHg FINDINGS -------- Sinus rhythm. This was a technically good study. The left ventricular size is normal. There is mild concentric left ventricular hypertrophy. Overa ll left ventricular systolic function is low-normal with, an EF between 50 - 55 %. The right ventricle is normal in size. LA is moderately dilated 34-39 ml/m2 The right atrial size is normal. The aortic valve is trileaflet, and appears structurally normal. No aortic stenosis or regurgitation. [id number] mitral regurgitation is present. Mild tricuspid regurgitation present. There is no evidence of pulmonary hypertension. The right v entricular systolic pressure, as measured by Doppler, is 19.39mmHg. There is no pulmonic regurgitation present. The aortic root size is normal. There is no pericardial effusion. CONCLUSIONS -------- 1. The left ventricular size is normal. 2. There is mild concentric left ventricular hypertrophy. 3. Overall left ventricular systolic function is low-normal with, an EF between 50 - 55 %. 4. LA is moderately dilated 34-39 ml/m2 5. The aortic valve is trileaflet, and appears structurally normal. No aortic stenosis or regurgitati on. 6. [id number] mitral regurgitation is present. 7. Mild tricuspid regurgitation present. 8. There is no evidence of pulmonary hypertension. 9. The right ventricular systolic pressure, as measured by Doppler, is 19.39mmHg. 10. There is no pulmonic regurgitation present. 11. The aortic root size is normal. 12. There is no pericardial effusion. REHABILITATION DIRECTOR: Whitney Najera RDCS
[2017-10-27] MEDS ORDERED: LIDOCAINE 2% INJ 20 MG/ML SQ ONE ×2 (10:40→10:43)
[2017-10-27] MEDS ORDERED: IV FLUID CONTINUATION 1,000 ML IV ONE (10:41)
[2017-10-27] MEDS: MIDAZOLAM 2 MG/2 ML VIAL IV ONE ×2 (10:41→10:48)
[2017-10-27] MEDS ORDERED: fentaNYL (PF) 50 MCG/ML 2 ML AMP IV ONE (10:41)
[2017-10-27] MEDS ORDERED: SODIUM CHLORIDE 0.9% 1,000 ML IV ONE (10:41)
[2017-10-27] MEDS ORDERED: NITROGLYCERIN OINT 1 INCH/GM PACKET TOPICAL ONE ×2 (10:54→10:57)
--- NOTE | 2017-10-27 11:09 | P.PCN ---
Date of Procedure: 10/27/17 Preoperative Diagnosis: Unstable angina Postoperative Diagnosis: Critical lesion involving the RCA with in-stent stenosis in the proximal portion Procedure(s) Performed: Left heart catheterization without left ventriculography Description of Procedure: HISTORY: This is a 66-year-old gentleman with history of ischemic heart disease with multiple stents performed to the right coronary artery, the last one being in 2014. Patient is admitted to the hospital with intermittent chest tightness but a prolonged episode of chest tightness that woke him up on the day of admission. His EKGs did not reveal any acute changes. Cardiac enzymes are negative. Patient was advised to have a cardiac catheterization for definitive diagnosis. CONSENT:I have discussed the risks, benefits and alternative therapies for the above-mentioned procedure and for both sedation/analgesia as well as necessary blood product administration, if indicated, as they pertain to this patient. The patient has indicated understanding and acceptance of the risks and procedures discussed. [] PROCEDURE: Patient was brought to the lab in a fasting state. Patient was given some IV sedation. The right groin is infiltrated with lidocaine and right femoral artery was entered using Seldinger technique. A 6-[place] catheter was left in place and selective coronary arteriography was performed. Patient tolerated the procedure well. Patient is found to have significant disease involving the RCA with in-stent stenosis in the proximal portion. Patient is waiting to have evaluation and further intervention by Dr. Rico . Conscious Sedation: Versed 2 mg Fentanyl. 50 g Duration 20 minutes HEMODYNAMICS: The aortic pressure is 160/85. Left ankle end-diastolic pressure is about 25. There was no gradient across the aortic valve SELECTIVE CORONARY ARTERIOGRAPHY: LEFT MAIN: Normal length with mild distal stenosis of about 20 to 30% which seemed to be stable. THE LEFT ANTERIOR DESCENDING CORONARY ARTERY: This is a good caliber vessel with mild diffuse disease in the proximal portion with about 30-40% lesion. This appears to be stable compared to the previous studies THE LEFT CIRCUMFLEX AND IS CORONARY ARTERY: This is a nondominant vessel giving rise to good-sized OM branch. The circumflex and is coronary artery with mild disease in the proximal portion but no significant obstructive disease. THE RIGHT CORONARY ARTERY: This is a dominant vessel rise to good-sized PDA and PLV branches. Her multiple stents in the proximal and midportion. There is a in-stent stenosis in the proximal portion with about 70% stenosis and there is also diffuse disease in the midportion with the 40-50% luminal narrowing which is stable compared to the previous studies. LEFT VENTRICULOGRAPHY: Not performed FINAL IMPRESSION: Significant disease involving the proximal RCA with in-stent stenosis with mild to moderate disease in the midportion. There is a mild disease involving the left main and also proximal LAD. However, these lesions appear to be stable PLAN: Maximum medical therapy and patient is being evaluated by Dr. Rico for possible stenting of the RCA for in-stent stenosis PROGNOSIS:. Fair
[2017-10-27] MEDS ORDERED: BIVALIRUDIN BOLUS 250 MG/50 ML IV ONE ×2 (11:15→12:09)
[2017-10-27] MEDS ORDERED: CLOPIDOGREL 75 MG TAB PO ONE (11:15)
[2017-10-27] MEDS ORDERED: BIVALIRUDIN 250 MG in SODIUM CHLORIDE 0.9% 50 ML IV ONE ×2 (11:16→12:09)
[2017-10-27] MEDS ORDERED: CLOPIDOGREL 75 MG TAB ONE (11:17)
[2017-10-27] MEDS ORDERED: HYDROmorphone 2 MG/ML 1 ML SYRINGE IV ONE (11:56)
[2017-10-27] MEDS ORDERED: PRASUGREL 10 MG TAB PO ONE (11:56)
[2017-10-27] MEDS ORDERED: IOHEXOL 350 MG/ML 125ML BOTTLE INJ ONE (12:05)
[2017-10-27] MEDS ORDERED: NITROGLYCERIN SL TABS 0.4 MG TAB SUBLINGUAL PRN (12:07)
[2017-10-27] MEDS ORDERED: ATROPINE SULFATE 0.1 MG/ML 10ML SYRINGE IV PRN (12:07)
[2017-10-27] MEDS ORDERED: ZOLPIDEM 5 MG TAB PO PRN (12:07)
[2017-10-27] MEDS ORDERED: RX INFO: IV CONTRAST WAS GIVEN 1 EACH MISC MISCELLANE PRN (12:07)
[2017-10-27] MEDS ORDERED: MAG HYDROX/AL HYDROX/SIMETH 30 ML CUP PO PRN (12:07)
[2017-10-27] MEDS ORDERED: SODIUM CHLORIDE 0.9% 1,000 ML IV SCH (12:15)
[2017-10-27] MEDS ORDERED: HYDROmorphone 2 MG/ML 1 ML SYRINGE ONE (12:20)
--- NOTE | 2017-10-27 12:36 | PTCA ---
PERCUTANEOUSTRANS CORORONARY ANGIOGRAPHY Mr. Wright is a 66-year-old male with a known history of coronary artery disease, status post stenting of the right coronary artery, who presented with symptoms of angina pectoris. He underwent cardiac catheterization by Dr. West, was found to have in-stent restenosis that was placed in 2005 involving the proximal right coronary artery. In view of that, recommendation was made regarding angioplasty and stenting. The procedure as well as the risks and complication were discussed with the patient who is in full understanding and agreement. PROCEDURE: A 6-Luxembourger FR4 guiding catheter introduced in the system. After cannulating the right coronary ostium, a 0.014 balanced medium weight J-wire was advanced across the lesion, positioned distally. Then another 0.014 balanced medium J-wire was advanced next to the first one in a yuli fashion. Following that, a 2.5 x 12 mm Trek balloon was advanced and an inflation maximum of 14 atmosphere was done. Following that, the balloon was removed and attempts to advance 3.25 x 8 mm Xience Alpine stent were unsuccessful. That balloon was removed and one of the wires were removed. Subsequently, a GuideLiner catheter was advanced. Once position, the stent was advanced, deployed and postdilated to 16 atmospheres. Following that, the balloon was removed and a 3.5 x 12 mm NC Trek balloon was advanced and one inflation at 16 atmospheres was done. Following that, the balloon and the guidewire were withdrawn back in the guiding catheter. Images were obtained, repeated. Those images reveal stable successful stenting. At that point, the guiding catheter, the balloon and the guidewire were removed. The sheath was removed. Hemostasis was obtained with deployment of Angio-Seal. There was no immediate complication. Patient is returned to his room in stable condition. Of note, the patient received Angiomax per protocol as well as oral loading dose of Effient. He had chest discomfort with the inflation that improved at the end of the procedure. RESULTS: Successful stenting of the proximal right coronary artery with reduction of stenosis from 80% to less than 5%. RECOMMENDATION: Patient be continued on aspirin, Effient, beta padmini, ANGEL inhibitor and statin. The importance of dual antiplatelet treatment were discussed with the patient and his family and are in full understanding and agreement. Duration of the procedure is 31 minutes. MMODL / IJN: [id number] /
--- NOTE | 2017-10-27 12:42 | LTR ---
October 27, 2017 Re: Oscar Alexandrees Dear Dr. Cruz: I had the opportunity to perform coronary angioplasty and stenting on Mr. Wright at [facility] on the 27 of October and a full copy of the procedure note will be forwarded to you. In brief he underwent successful stenting of his proximal right coronary artery. I am hopeful that this procedure will stabilize his status. Thank you again for allowing me the opportunity to participate in his care. Please feel free to call for any questions. Sincerely yours, MD MELODY Paredes / MAUREENN: [id number] /
--- NOTE | 2017-10-27 13:06 | P.PN ---
Progress Note - Text Progress Note Date: 10/27/17 Mr. Castanedaues to experience left flank discomfort. He describes the stone he passed several days ago as being very small. The CT scan showed bilateral renal calculi, moreso on the right. No ureteral calculi were seen, and there was no evidence of hydronephrosis. It is possible that his pain is due to his left renal calculi, but the pain may be residual from recently having passed a calculus. I have suggested he proceed with his cardiac evaluation. If he experiences persistent left flank pain, he may require left ureteroscopy with laser lithotripsy and stone basketing.
[2017-10-27 13:16] LABS: Glucose,Whole Blood 169 mg/dL (75-99)
[2017-10-27 16:55] LABS: Glucose,Whole Blood 269 mg/dL (75-99)
[2017-10-27 21:46] LABS: Glucose,Whole Blood 294 mg/dL (75-99)
[2017-10-27] MEDS: FLUTICASONE 50MCG/SPRAY NASAL 16GM EA NOSTRIL SCH (22:05)
[2017-10-28 05:40] LABS: Glucose,Whole Blood 155 mg/dL (75-99)
[2017-10-28 06:25] LABS: Mean Platelet Volume 7.5; Platelet Count 179 k/uL (150-450)
[2017-10-28] MEDS: INSULIN ASPART 100 UNIT/ML 1 ML 10 ML VIAL SQ SCH ×2 (06:37→12:07)
[2017-10-28] MEDS: PANTOPRAZOLE 40 MG TABLET PO SCH (06:42)
[2017-10-28] MEDS: ACARBOSE 25 MG TAB PO SCH (06:42)
[2017-10-28 06:43] LABS: Anion Gap 11 mmol/L; Blood Urea Nitrogen 13 mg/dL (9-20); Calcium 9.4 mg/dL (8.4-10.2); Carbon Dioxide 22 mmol/L (22-30); Chloride 109 mmol/L (98-107); Glucose 147 mg/dL (74-99); Potassium 4.2 mmol/L (3.5-5.1); Sodium 142 mmol/L (137-145)
[2017-10-28] MEDS: HYDROmorphone 2 MG/ML 1 ML SYRINGE IVP PRN (06:45)
[2017-10-28] MEDS: LISINOPRIL 10 MG TAB PO SCH (08:23)
[2017-10-28] MEDS: METOPROLOL TARTRATE 25 MG TAB PO SCH (08:23)
[2017-10-28] MEDS: ALPRAZolam 0.25 MG TAB PO SCH (08:23)
[2017-10-28] MEDS: glipiZIDE 5 MG TAB PO SCH (08:23)
[2017-10-28] MEDS: TAMSULOSIN 0.4 MG CAP.ER.24H PO SCH (08:24)
--- NOTE | 2017-10-28 08:47 | P.PN ---
Progress Note - Text The patient is a 66-year-old gentleman who 3 days ago presented to emergency room with chest pain. Symptoms consistent with unstable angina. Course was somewhat complicated by passage of a left renal stone and continuing flank pain. Patient yesterday underwent cardiac catheterization with stenting of the proximal right coronary artery. Patient presently is doing better. Denies any definitive angina and has been able to walk in the hallways without angina. Also renal stone pain seems to be for the most part controlled/improved. Vital signs reveal temperature 97.1 with a pulse of 72 and respirations 16. Blood pressure was 155/74 and he is 96% saturated on room air. Lung and heart examination clear. Abdomen nontender. No unusual edema. No focal neurological changes. Laboratory Platelet count 179. Electrolytes unremarkable. GFR greater than 60. Potassium 4.2. Blood sugar 147. Impressions and plan Patient is now post coronary artery angioplasty and stenting after presentation of unstable angina with compromise of the right coronary arteries. Please refer to cardiology. Patient's A1c was elevated and discussed. Patient discussed changes in his diet. 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 Also discussed with patient and nursing staff regarding his medications. He will call us if he has any concerns regarding obtaining his medications as an outpatient. Patient usually requests all his medicines to be brand name and d.a.w. Recheck in office over the next 7-10 days. As mentioned has follow-up with endocrinology and cardiology. Full discharge summary to follow.
[2017-10-28 08:48] VITALS: TEMP 98
[2017-10-28] MEDS ORDERED: PRASUGREL 10 MG TAB PO SCH (09:00)
[2017-10-28] MEDS ORDERED: ASPIRIN 81 MG PO SCH (09:00)
[2017-10-28 11:39] LABS: Glucose,Whole Blood 332 mg/dL (75-99)
[2017-10-28 12:12] VITALS: BP 140/76; PULSE 61; RESP 18
[2017-10-28 12:12] LABS: Glucose,Whole Blood 304 mg/dL (75-99)
--- NOTE | 2017-10-28 15:04 | P.PN ---
Subjective Progress Note Date: 10/28/17 Mr. Wright is a 66 -year-old male patient past medical history significant for known chronic stable coronary artery disease, dyslipidemia, hypertension. He states yesterday he was woken up out of sleep with tightness across his entire chest. It radiated to the back and was associated with shortness of breath. The pain seemed worse when he was up walking around and when he sat down it seemed to get better. Although since he's been hospitalized he has had multiple bouts of this pain while at rest in bed. He states he has also been struggling with a kidney stone on the left side. He is complaining of left flank pain for the last 3 days. He states that he passed a stone 2 nights ago but is still feeling residual pain in the left flank and groin region. He denies associated dizziness, palpitations, nausea or vomiting. He follows with Dr. West in the office. Most recent echocardiogram reveals preserved left ventricular systolic function with EF 55% . Most recent cardiac catheterization 2014 reveals RCA with multiple stents, left main with mild nonobstructive distal stenosis, LAD with mild nonobstructive ostial stenosis and circumflex artery with no evidence of disease. At that time medical management was recommended. EKG reveals sinus mechanism with no acute ST or T-wave abnormalities.Chest x- ray negative for acute cardiopulmonary.Laboratory data has been reviewed cardiac enzymes negative 3.Current cardiac medications include lisinopril 10 mg daily, atorvastatin 40 mg daily, atenolol 50 mg daily and aspirin 325 milligrams daily. 07/28/2018 Patient was taken to the cardiac catheterization lab yesterday by by Dr. West, subsequently underwent successful stenting of the proximal right coronary artery by Dr. Rico. Patient was seen and examined this morning, feels well, denies any chest pain or difficulty in breathing. He has been up ambulating without any difficulty. EKG shows normal sinus rhythm with no changes from post-PCI. Sodium 142, potassium 4.2, BUN 13, creatinine 0.9. The pressure 140/70 with a heart rate in the 60s, 94% on room air. Objective - Vital Signs Vital signs: Vital Signs Temp 98 F 10/28/17 08:00 Pulse 61 10/28/17 12:00 Resp 18 10/28/17 12:00 BP 140/76 10/28/17 12:00 Pulse Ox 94 L 10/28/17 12:00 Intake & Output 10/27/17 10/28/17 10/28/17 18:59 06:59 18:59 Intake Total 145.1 480 Balance 145.1 480 Weight 85 kg 85 kg Intake: IV 145.1 Oral 480 Other: Voiding Method Toilet Toilet # Voids 1 # Bowel Movements 0 - Exam PHYSICAL EXAMINATION: HEENT: [Head is atraumatic, normocephalic. Pupils equal, round. Neck is supple. There is no elevated jugular venous pressure.] HEART EXAMINATION: [Heart S1, S2 normal. No murmur or gallop heard.] CHEST EXAMINATION:[ Lungs are clear to auscultation and precussion. No chest wall tenderness is noted on palpation or with deep breathing.] ABDOMEN: [ Soft, nontender. Bowel sounds are heard. No organomegaly noted] .Right groin soft, no evidence of any hematoma. EXTREMITIES:[ 2+ peripheral pulses with no evidence of peripheral edema and no calf tenderness noted]. NEUROLOGIC [patient is awake, alert and oriented -3.] . - Labs CBC & Chem 7: 10/28/17 05:45 10/28/17 05:45 Labs: Abnormal Lab Results - Last 24 Hours (Table) 10/27/17 10/27/17 10/28/17 Range/Units 16:51 21:44 05:36 Chloride (98-107) mmol/L Glucose (74-99) mg/dL POC Glucose (mg/dL) 269 H 294 H 155 H (75-99) mg/dL 10/28/17 10/28/17 10/28/17 Range/Units 05:45 11:38 11:48 Chloride 109 H (98-107) mmol/L Glucose 147 H (74-99) mg/dL POC Glucose (mg/dL) 332 H 304 H (75-99) mg/dL Assessment and Plan Plan: Assessment and plan #1 status post angioplasty with stenting the proximal right coronary artery. #2 known history of coronary artery disease #3 hypertension #4 hyperlipidemia Plan Patient may be discharged home today. Patient will be discharged home on aspirin 81 mg daily, Lipitor 40 mg daily, Lisinopril 10 mg daily, metoprolol 25 mg one tablet by mouth twice a day, Effient 10 mg daily and sublingual nitroglycerin as needed for chest pain. We will make him a follow-up appointment in the office to see Dr. West post discharge. DNP note has been reviewed, I agree with a documented findings and plan of care. Patient was seen and examined.
[2017-10-28] MEDS ORDERED: ATORVASTATIN 40 MG TAB PO SCH (21:00)
--- NOTE | 2017-10-29 11:08 | DS ---
DISCHARGE SUMMARY Mr. Oscar Wright is a 66-year-old gentleman presented to the emergency room with a chief complaint of chest pain and on further questioning, did relate that he had some previous intermittent chest discomfort that was consistent with angina across the upper part of the chest requiring rest to relieve it and his pain has been coming on more often and with less activity. He also had problems with left flank pain and likely passage of a recent kidney stone. Other comorbidities include previous history of atherosclerotic heart disease with previous stenting back in 2013. There is also history of risk factors with hypertension, hyperlipidemia, diabetes. He does have gastroesophageal reflux and a history of kidney stones and BPH and underlying osteoarthritis especially of the lumbar spine. The patient was admitted and placed on heparin therapy. He had serial EKGs and enzymes did not show changes, although he did have recurrent chest discomfort even while in the hospital. He was seen in consultation by Cardiology and also seen by Urology for the symptomatic kidney stones. The patient did undergo a CT scan of the abdomen and pelvis and which did reveal nonobstructive bilateral nephrolithiasis and uncomplicated diverticulosis of the sigmoid colon. A stable umbilical hernia containing fat and degenerative changes of the spine. An echocardiogram would showed an ejection fraction of 50 to 55%. Normal LV size, concentric LV hypertrophy, which was felt to be mild. His left atrial size was dilated 34-39 mm, aortic valve seemed unremarkable. No pulmonary hypertension and no pericardial infusion. The patient underwent cardiac catheterization and subsequent angioplasty and stenting of the proximal right coronary artery with good radiologic and clinical results. The patient was subsequently monitored and ambulated and was not having any further angina. At this point, he is to be discharged home on his aspirin 81 mg daily and nitroglycerin 0.4 sublingual p.r.n. for pain. He is also to be on Effient 10 mg daily and continue Xanax 0.25 twice a day as needed for anxiety, Precose 50 mg twice a day for his diabetes and atenolol 50 mg at bedtime. Lipitor 40 mg at bedtime. Nexium 22.3 mg daily for his reflux. He also is on hydrocodone/acetaminophen 7.5-325 1 q.6 hours as needed for pain. Lisinopril 10 mg daily. Nasonex 2 sprays in each nostril daily. Nitroglycerin sublingual as needed for chest pain. Tamsulosin 0.4 mg 2 tablets daily. Glucotrol 10 mg twice a day. Metformin 500 mg twice a day. The patient will have follow up with [facility] and if continued renal stone pain, follow up with Dr. Garcia from Urology and follow up with myself over the next week. 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 FINAL DISCHARGE DIAGNOSES: 1. Unstable angina with associated recurrent chest pain, not completely relieved medically and status post angioplasty of the proximal right coronary artery as described by Dr. Rico in his dictations. 2. Bilateral renal stones, nonobstructive and with history of nephrolithiasis. 3. History of diabetes. 4. Hypertension. 5. Hyperlipidemia. 6. Osteoarthritis, specifically of the lumbar spine. 7. History of benign prostatic hypertrophy. 8. History of gastroesophageal reflux. 9. Previous surgery that includes back surgery and appendectomy. Once again, follow up as mentioned above. Diet to control his diabetes and follow up as mentioned. MMODL / IJN: [id number] / [place]
== END 2017-10-28 15:51 | disposition home or self-care (01) | DRG 247 ==
LOC: EC 07:46 → 3OBS 10:14 → 6SEL 10-27 11:38 → OBSVTOIN 10-28 10:13
PROVIDERS: ADMIT Internal Medicine; ATTEND Internal Medicine
PROC: B2111ZZ Fluoroscopy of Multiple Coronary Arteries using Low Osmolar Contrast (ICD-10-PCS; 2017-10-27)
PROC: 027034Z Dilation of Coronary Artery, One Artery with Drug-eluting Intraluminal Device, Percutaneous Approach (ICD-10-PCS; principal; 2017-10-27 10:30)
PROC: 4A023N7 Measurement of Cardiac Sampling and Pressure, Left Heart, Percutaneous Approach (ICD-10-PCS; 2017-10-27 10:30)
DX: I25.110 Atherosclerotic heart disease of native coronary artery with unstable angina pectoris (principal); T82.855A Stenosis of coronary artery stent, initial encounter; E11.9 Type 2 diabetes mellitus without complications; E78.5 Hyperlipidemia, unspecified; I10 Essential (primary) hypertension; I25.2 Old myocardial infarction; K21.9 Gastro-esophageal reflux disease without esophagitis; K42.9 Umbilical hernia without obstruction or gangrene; K57.30 Diverticulosis of large intestine without perforation or abscess without bleeding; M47.9 Spondylosis, unspecified; N20.0 Calculus of kidney; N40.0 Benign prostatic hyperplasia without lower urinary tract symptoms; F41.9 Anxiety disorder, unspecified; Z79.02 Long term (current) use of antithrombotics/antiplatelets; Z79.82 Long term (current) use of aspirin; Z79.84 Long term (current) use of oral hypoglycemic drugs; Z79.899 Other long term (current) drug therapy; Z90.49 Acquired absence of other specified parts of digestive tract; Z87.442 Personal history of urinary calculi; Z85.51 Personal history of malignant neoplasm of bladder; Z82.49 Family history of ischemic heart disease and other diseases of the circulatory system; Y83.1 Surgical operation with implant of artificial internal device as the cause of abnormal reaction of the patient, or of later complication, without mention of misadventure at the time of the procedure
CPT/HCPCS: 36415; 71046; 74018; 74176; 80048; 80053; 80061; 82550; 82553; 83036; 83690; 83735; 84484; 85025; 85049; 85347; 85610; 85730; 93005; 93306; 93458; 96361; 96365; 96366; 96375; 96376; 99291

== ENCOUNTER 2018-03-10 18:58 | Inpatient (IN) | payer MEDICARE, BC ==
--- NOTE | 2018-03-10 19:20 | ED ---
General Adult HPI - General Chief complaint: Chest Pain Stated complaint: CHEST PAIN, HAS HEART Hx Time Seen by Provider: 03/10/18 19:19 Source: patient, RN notes reviewed, old records reviewed Mode of arrival: wheelchair Limitations: no limitations - History of Present Illness Initial comments: This is a 67-year-old male the ER for evaluation chest pain. Patient comes in with classic anterior chest pain heaviness, continuous. Patient is significant heart history, history of multiple MIs, multiple stent placement. Patient states symptoms are since last stent placement. No significant improvement, symptoms are worse with exertion. Sometimes nitro does help - Related Data Home Medications Medication Instructions Recorded Confirmed ALPRAZolam [Xanax] 0.25 mg PO BID 05/31/14 03/10/18 Acarbose [Precose] 50 mg PO TID 05/31/14 03/10/18 Atenolol [Tenormin] 50 mg PO HS 05/31/14 03/10/18 Atorvastatin [Lipitor] 40 mg PO HS 05/31/14 03/10/18 Lisinopril [Zestril] 10 mg PO DAILY 05/31/14 03/10/18 Mometasone Furoate [Nasonex Nasal 2 spray EA NOSTRIL HS 05/31/14 03/10/18 Craig] glipiZIDE [Glucotrol XL] 10 mg PO BID 05/31/14 03/10/18 Esomeprazole Magnesium [NexIUM 22.3 mg PO DAILY 10/27/16 03/10/18 24Hr] metFORMIN HCL [Glucophage] 500 mg PO BID 10/25/17 03/10/18 HYDROcodone/APAP 5-325MG [[place] 1 tab PO TID PRN 03/10/18 03/10/18 5-325] Previous Rx's Medication Instructions Recorded Aspirin 81 mg PO DAILY #303 chew 10/28/17 Nitroglycerin Sl Tabs [Nitrostat] 0.4 mg SUBLINGUAL Q5M PRN #25 tab 10/28/17 Prasugrel [Effient] 10 mg PO DAILY #30 tab 10/28/17 Allergies Allergy/AdvReac Type Severity Reaction Status Date / Time No Known Allergies Allergy Verified 03/10/18 19:37 Review of Systems ROS Statement: Those systems with pertinent positive or pertinent negative responses have been documented in the HPI. ROS Other: All systems not noted in ROS Statement are negative. Past Medical History Past Medical History: Coronary Artery Disease (CAD), Cancer, Chest Pain / Angina , Diabetes Mellitus, GERD/Reflux, Hyperlipidemia, Hypertension, Myocardial Infarction ([place]), Osteoarthritis (OA), Prostate Disorder, Skin Disorder Additional Past Medical History / Comment(s): Hx. KIDNEY STONES, occasional SOB recently, diff swallowing-feels like in throat, diarrhea, dry skin, hx bladder cancer Last Myocardial Infarction Date:: 2004 History of Any Multi-Drug Resistant Organisms: None Reported Past Surgical History: Appendectomy, Back Surgery, Ear Surgery, Heart Catheterization, Heart Catheterization With Stent, Orthopedic Surgery Additional Past Surgical History / Comment(s): METAL SCREWS IN BACK, RIGHT EAR TUBE/now gone, EPIDURAL PAIN SHOTS, previous stents 2004,2005, LITHOTRIPSY, rt shoulder rotator cuff Past Anesthesia/Blood Transfusion Reactions: No Reported Reaction Date of Last Stent Placement:: 05/2014 Past Psychological History: Anxiety Smoking Status: Never smoker Past Alcohol Use History: Rare Past Drug Use History: None Reported - Past Family History Father Family Medical History: Cancer Additional Family Medical History / Comment(s): BRAIN Mother Family Medical History: Chest Pain / Angina, Coronary Artery Disease (CAD), Dementia, Diabetes Mellitus, Hyperlipidemia, Hypertension, Respiratory Disorder Additional Family Medical History / Comment(s): CABGx4 (No [place]), ruptured colon General Exam Limitations: no limitations General appearance: alert, in no apparent distress Head exam: Present: atraumatic, normocephalic, normal inspection Eye exam: Present: normal appearance, PERRL, EOMI. Absent: scleral icterus, conjunctival injection, periorbital swelling ENT exam: Present: normal exam, mucous membranes moist Neck exam: Present: normal inspection. Absent: tenderness, meningismus, lymphadenopathy Respiratory exam: Present: normal lung sounds bilaterally. Absent: respiratory distress, wheezes, rales, rhonchi, stridor Cardiovascular Exam: Present: regular rate, normal rhythm, normal heart sounds. Absent: systolic murmur, diastolic murmur, rubs, gallop, clicks GI/Abdominal exam: Present: soft, normal bowel sounds. Absent: distended, tenderness, guarding, rebound, rigid Extremities exam: Present: normal inspection, full ROM, normal capillary refill. Absent: tenderness, pedal edema, joint swelling, calf tenderness Back exam: Present: normal inspection Neurological exam: Present: alert, oriented X3, CN II-XII intact Psychiatric exam: Present: normal affect, normal mood Skin exam: Present: warm, dry, intact, normal color. Absent: rash Course Vital Signs 03/10/18 03/10/18 03/10/18 19:10 20:07 20:56 Temperature 97.9 F Pulse Rate 57 L 53 L 57 L Respiratory 18 17 16 Rate Blood Pressure 176/78 191/87 153/71 O2 Sat by Pulse 99 100 98 Oximetry - Reevaluation(s) Reevaluation #1: 03/10/18 21:17 Patient with still continued episodic chest pain heaviness Reevaluation #2: 03/10/18 21:17 Medical records thoroughly reviewed EKG Findings - EKG Comments: EKG Findings:: EKG shows sinus rhythm rate of 75, OK 174, QRS 104, QTc 469 Medical Decision Making - Medical Decision Making 67 male the ER for evaluation of chest pain, severe chest and heart history, recent stent placement, patient be admitted for cardiac evaluation and treatment , anticoagulation and observation - Lab Data Result diagrams: 03/10/18 19:24 03/10/18 19:24 Lab Results 03/10/18 03/10/18 03/10/18 Range/Units 19:24 19:24 19:24 WBC 7.7 (3.8-10.6) k/uL RBC 4.23 L (4.30-5.90) m/uL Hgb 13.4 (13.0-17.5) gm/dL Hct 39.1 (39.0-53.0) % MCV 92.4 (80.0-100.0) fL MCH 31.8 (25.0-35.0) pg MCHC 34.4 (31.0-37.0) g/dL RDW 13.8 (11.5-15.5) % Plt Count 201 (150-450) k/uL Neutrophils % 60 % Lymphocytes % 26 % Monocytes % 4 % Eosinophils % 7 % Basophils % 1 % Neutrophils # 4.6 (1.3-7.7) k/uL Lymphocytes # 2.0 (1.0-4.8) k/uL Monocytes # 0.3 (0-1.0) k/uL Eosinophils # 0.5 (0-0.7) k/uL Basophils # 0.1 (0-0.2) k/uL PT (9.0-12.0) sec INR (<1.2) APTT (22.0-30.0) sec Sodium 141 (137-145) mmol/L Potassium 4.4 (3.5-5.1) mmol/L Chloride 105 (98-107) mmol/L Carbon Dioxide 22 (22-30) mmol/L Anion Gap 14 mmol/L BUN 12 (9-20) mg/dL Creatinine 1.20 (0.66-1.25) mg/dL Est GFR (CKD-EPI)AfAm 72 (>60 ml/min/1.73 sqM) Est GFR (CKD-EPI)NonAf 62 (>60 ml/min/1.73 sqM) Glucose 369 H (74-99) mg/dL Calcium 9.4 (8.4-10.2) mg/dL Magnesium 1.3 L (1.6-2.3) mg/dL Total Bilirubin 0.4 (0.2-1.3) mg/dL AST 31 (17-59) U/L ALT 39 (21-72) U/L Alkaline Phosphatase 71 (38-126) U/L Total Creatine Kinase 109 (55-170) U/L CK-MB (CK-2) 0.9 (0.0-2.4) ng/mL CK-MB (CK-2) Rel Index 0.8 Troponin I <0.012 (0.000-0.034) ng/mL NT-Pro-B Natriuret Pep pg/mL Total Protein 6.6 (6.3-8.2) g/dL Albumin 4.3 (3.5-5.0) g/dL Lipase 229 (23-300) U/L 03/10/18 03/10/18 Range/Units 19:24 19:24 WBC (3.8-10.6) k/uL RBC (4.30-5.90) m/uL Hgb (13.0-17.5) gm/dL Hct (39.0-53.0) % MCV (80.0-100.0) fL MCH (25.0-35.0) pg MCHC (31.0-37.0) g/dL RDW (11.5-15.5) % Plt Count (150-450) k/uL Neutrophils % % Lymphocytes % % Monocytes % % Eosinophils % % Basophils % % Neutrophils # (1.3-7.7) k/uL Lymphocytes # (1.0-4.8) k/uL Monocytes # (0-1.0) k/uL Eosinophils # (0-0.7) k/uL Basophils # (0-0.2) k/uL PT 10.1 (9.0-12.0) sec INR 1.0 (<1.2) APTT 22.3 (22.0-30.0) sec Sodium (137-145) mmol/L Potassium (3.5-5.1) mmol/L Chloride (98-107) mmol/L Carbon Dioxide (22-30) mmol/L Anion Gap mmol/L BUN (9-20) mg/dL Creatinine (0.66-1.25) mg/dL Est GFR (CKD-EPI)AfAm (>60 ml/min/1.73 sqM) Est GFR (CKD-EPI)NonAf (>60 ml/min/1.73 sqM) Glucose (74-99) mg/dL Calcium (8.4-10.2) mg/dL Magnesium (1.6-2.3) mg/dL Total Bilirubin (0.2-1.3) mg/dL AST (17-59) U/L ALT (21-72) U/L Alkaline Phosphatase (38-126) U/L Total Creatine Kinase (55-170) U/L CK-MB (CK-2) (0.0-2.4) ng/mL CK-MB (CK-2) Rel Index Troponin I (0.000-0.034) ng/mL NT-Pro-B Natriuret Pep 204 pg/mL Total Protein (6.3-8.2) g/dL Albumin (3.5-5.0) g/dL Lipase (23-300) U/L Critical Care Time Critical Care Time: Yes Total Critical Care Time: 31 Disposition Clinical Impression: Chest pain, Unstable angina pectoris Disposition: HOME SELF-CARE Condition: Good Instructions: Chest Pain (ED) Is patient prescribed a controlled substance at d/c from ED?: No Referrals: Timur Cruz MD [Primary Care Provider] - 1-2 days
[2018-03-10 20:10] LABS: Basophils # (A) 0.1 k/uL (0-0.2); Basophils % (A) 1 %; Eosinophils # (A) 0.5 k/uL (0-0.7); Eosinophils % (A) 7 %; HCT 39.1 % (39.0-53.0); HGB 13.4 gm/dL (13.0-17.5); Lymphocytes % (A) 26 %; MCH 31.8 pg (25.0-35.0); MCHC 34.4 g/dL (31.0-37.0); MCV 92.4 fL (80.0-100.0); Mean Platelet Volume 6.9; Monocytes # (A) 0.3 k/uL (0-1.0); Monocytes % (A) 4 %; Neutrophils # (A) 4.6 k/uL (1.3-7.7); Neutrophils % (A) 60 %; Platelet Count 201 k/uL (150-450); RBC 4.23 m/uL (4.30-5.90); RDW 13.8 % (11.5-15.5); WBC 7.7 k/uL (3.8-10.6)
[2018-03-10 20:18] LABS: Partial Thromboplastin Time 22.3 sec (22.0-30.0); Prothrombin Time 10.1 sec (9.0-12.0)
[2018-03-10 20:20] LABS: Albumin 4.3 g/dL (3.5-5.0); Calcium 9.4 mg/dL (8.4-10.2); Magnesium 1.3 mg/dL (1.6-2.3); Potassium 4.4 mmol/L (3.5-5.1); Total Bilirubin 0.4 mg/dL (0.2-1.3); Total Protein 6.6 g/dL (6.3-8.2)
[2018-03-10 20:26] LABS: Creatine Kinase 109 U/L (55-170)
--- NOTE | 2018-03-10 20:32 | XR ---
EXAMINATION TYPE: XR chest 2V DATE OF EXAM: 03/10/2018 COMPARISON: 10/25/2017 INDICATION: Chest pain TECHNIQUE: Frontal and lateral views of the chest are obtained. FINDINGS: The heart size is normal. The pulmonary vasculature is normal. The lungs are clear. IMPRESSION: 1. No acute pulmonary process.
[2018-03-10 20:39] LABS: Creatine Kinase MB 0.9 ng/mL (0.0-2.4); Troponin I <0.012 ng/mL (0.000-0.034)
[2018-03-10] MEDS: MAGNESIUM SULFATE-D5W PMX 1 GM in DEXTROSE/WATER 1 100ML.BAG IVPB SCH ×2 (20:54→22:02)
[2018-03-10] MEDS ORDERED: ASPIRIN 81 MG PO STA (21:15)
[2018-03-10] MEDS ORDERED: MORPHINE SULFATE 2 MG/ML SYRINGE IV PRN (21:15)
[2018-03-10] MEDS ORDERED: NITROGLYCERIN SL TABS 0.4 MG TAB SUBLINGUAL PRN ×2 (21:15→22:55)
[2018-03-10] MEDS ORDERED: HEPARIN SODIUM,PORCINE 5,000 UNIT/ML 1 ML VIAL IV PRN (21:15)
[2018-03-10] MEDS ORDERED: HEPARIN SODIUM,PORCINE 5,000 UNIT/ML 1 ML VIAL IV ONE (21:15)
[2018-03-10] MEDS: HEPARIN SODIUM,PORCINE/D5W PMX 25,000 UNIT in DEXTROSE/WATER 1 500ML.BAG IV SCH (22:01)
[2018-03-10] MEDS ORDERED: ATORVASTATIN 40 MG TAB PO SCH (23:00)
[2018-03-10 23:10] LABS: Glucose,Whole Blood 232 mg/dL (75-99)
[2018-03-10] MEDS: FLUTICASONE 50MCG/SPRAY NASAL 16GM EA NOSTRIL SCH (23:18)
[2018-03-10] MEDS: ALPRAZolam 0.25 MG TAB PO SCH (23:18)
[2018-03-10] MEDS: ATENOLOL 50 MG TAB PO SCH (23:18)
[2018-03-11] MEDS: HYDROcodone/APAP 5-325MG 1 EACH TAB PO PRN ×2 (01:40→18:54)
[2018-03-11 02:02] LABS: Creatine Kinase 95 U/L (55-170)
[2018-03-11 02:14] LABS: Creatine Kinase MB 0.8 ng/mL (0.0-2.4); Troponin I <0.012 ng/mL (0.000-0.034)
[2018-03-11 04:29] LABS: Mean Platelet Volume 7.2; Platelet Count 186 k/uL (150-450)
[2018-03-11 04:43] LABS: Cholesterol 111 mg/dL (<200); HDL Cholesterol 37 mg/dL (40-60); LDL Cholesterol,Calculated 27 mg/dL (0-99); Triglycerides 234 mg/dL (<150)
[2018-03-11 06:35] LABS: Glucose,Whole Blood 172 mg/dL (75-99)
[2018-03-11] MEDS: glipiZIDE 5 MG TAB PO SCH ×3 (08:08→21:57)
[2018-03-11] MEDS: ACARBOSE 25 MG TAB PO SCH ×3 (08:08→17:09)
[2018-03-11] MEDS: metFORMIN 500 MG TAB PO SCH ×3 (08:08→21:57)
[2018-03-11] MEDS: ALPRAZolam 0.25 MG TAB PO SCH ×2 (08:15→21:58)
[2018-03-11] MEDS: PANTOPRAZOLE 40 MG TABLET PO SCH (08:16)
[2018-03-11] MEDS: LISINOPRIL 10 MG TAB PO SCH (08:16)
[2018-03-11] MEDS: PRASUGREL 10 MG TAB PO SCH (08:17)
[2018-03-11] MEDS: ASPIRIN 325 MG TAB PO SCH (08:18)
--- NOTE | 2018-03-11 08:26 | P.CRDCN ---
History of Present Illness Consult date: 03/11/18 Requesting physician: Timur Cruz Consult reason: chest pain Chief complaint: Chest pain History of present illness: This is a pleasant 67-year-old gentleman with history of hypertension , hyperlipidemia,, coronary artery disease with prior stent placements, most recent stent was placed in October of this year at which time patient underwent successful stenting of the proximal right coronary artery. He follows regularly with Dr. West in the office. He presents to the hospital with symptoms of progressively worsening chest tightness and shortness of breath. He states that shortly after his stent placement he had noticed some of these symptoms however they occurred very infrequently. As time has been passing, the chest tightness and shortness of breath have been occurring much more frequently, even with walking very short distances. [facility], states that he was walking and had to sit down and take nitroglycerin because of the symptoms. Blood pressure on arrival 144/60 with a heart rate in the 60s, 97% on room air. White blood cell count is normal, hemoglobin 13.4, platelet count 186. Sodium 141, potassium 4.4, BUN 12, creatinine 1.2. Troponins are negative 2. Cholesterol 111, triglycerides 234 , LDL 27, HDL 37. Patient's home medications include Nexium, metformin, Lipitor 40 mg daily, Tenormin 50 mg daily, glipizide, Effient 10 mg daily, Zestril 10 mg daily, Ecotrin 81 mg daily and Precose. EKG on arrival here showed a normal sinus rhythm with nonspecific ST-T wave changes noted in the inferior leads. Morning showed a sinus bradycardia with nonspecific inferior ST -T wave changes. At the time of my examination this morning, patient is currently chest pain-free. Past Medical History Past Medical History: Coronary Artery Disease (CAD), Cancer, Chest Pain / Angina , Diabetes Mellitus, GERD/Reflux, Hyperlipidemia, Hypertension, Myocardial Infarction ([place]), Osteoarthritis ([place]), Prostate Disorder, Skin Disorder Additional Past Medical History / Comment(s): Hx. KIDNEY STONES, occasional SOB recently, diff swallowing-feels like in throat, diarrhea, dry skin, hx bladder cancer Last Myocardial Infarction Date:: 2004 History of Any Multi-Drug Resistant Organisms: None Reported Past Surgical History: Appendectomy, Back Surgery, Ear Surgery, Heart Catheterization, Heart Catheterization With Stent, Orthopedic Surgery Additional Past Surgical History / Comment(s): METAL SCREWS IN BACK, RIGHT EAR TUBE/now gone, EPIDURAL PAIN SHOTS, previous stents 2004,2005, LITHOTRIPSY, rt shoulder rotator cuff Past Anesthesia/Blood Transfusion Reactions: No Reported Reaction Date of Last Stent Placement:: 05/2014 Past Psychological History: Anxiety Smoking Status: Never smoker Past Alcohol Use History: Rare Past Drug Use History: None Reported - Past Family History Father Family Medical History: Cancer Additional Family Medical History / Comment(s): BRAIN Mother Family Medical History: Chest Pain / Angina, Coronary Artery Disease (CAD), Dementia, Diabetes Mellitus, Hyperlipidemia, Hypertension, Respiratory Disorder Additional Family Medical History / Comment(s): CABGx4 (No [place]), ruptured colon Medications and Allergies Home Medications Medication Instructions Recorded Confirmed Type ALPRAZolam [Xanax] 0.25 mg PO BID 05/31/14 03/10/18 History Acarbose [Precose] 50 mg PO TID 05/31/14 03/10/18 History Atenolol [Tenormin] 50 mg PO HS 05/31/14 03/10/18 History Atorvastatin [Lipitor] 40 mg PO HS 05/31/14 03/10/18 History Lisinopril [Zestril] 10 mg PO DAILY 05/31/14 03/10/18 History Mometasone Furoate [Nasonex Nasal 2 spray EA NOSTRIL HS 05/31/14 03/10/18 History [place]] glipiZIDE [Glucotrol XL] 10 mg PO BID 05/31/14 03/10/18 History Esomeprazole Magnesium [NexIUM 22.3 mg PO DAILY 10/27/16 03/10/18 History 24Hr] metFORMIN HCL [Glucophage] 1,000 mg PO BID 10/25/17 03/10/18 History Aspirin 81 mg PO DAILY #303 chew 10/28/17 03/10/18 Rx Nitroglycerin Sl Tabs [Nitrostat] 0.4 mg SUBLINGUAL Q5M PRN #25 tab 10/28/1702/20 Rx Prasugrel [Effient] 10 mg PO DAILY #30 tab 10/28/17 03/10/18 Rx HYDROcodone/APAP 5-325MG [[place] 1 tab PO TID PRN 03/10/18 03/10/18 History 5-325] Allergies Allergy/AdvReac Type Severity Reaction Status Date / Time No Known Allergies Allergy Verified 03/10/18 19:37 Physical Exam Vitals: Vital Signs Temp Pulse Pulse Resp BP BP Pulse Ox 03/11/18 04:00 97.4 F L 64 18 144/67 97 03/11/18 00:00 61 18 03/10/18 23:59 97.0 F L 61 18 169/76 98 03/10/18 22:15 96.6 F L 62 18 181/89 97 03/10/18 22:09 58 L 16 148/74 98 03/10/18 20:56 57 L 16 153/71 98 03/10/18 20:07 53 L 17 191/87 100 03/10/18 19:10 97.9 F 57 L 18 176/78 99 Intake and Output 03/10/18 03/11/18 03/11/18 22:59 06:59 14:59 Intake Total 200 695.266 Balance 200 695.266 Intake: IV 560 0.9 400 Heparin Sodium,Porcine/ 160 D5w Pmx 25,000 unit In Dextrose/Water 1 500ml. bag @ 20 mls/hr IV .Q24H ARTHUR Rx#:[id number] Intake, IV Titration 200 135.266 Amount Heparin Sodium,Porcine/ 135.266 D5w Pmx 25,000 unit In Dextrose/Water 1 500ml. bag @ 20 mls/hr IV .Q24H ARTHUR Rx#:[id number] Magnesium Sulfate-D5w Pmx 200 1 gm In Dextrose/Water 1 100ml.bag @ 100 mls/hr IVPB Q1H ARTHUR Rx#: [id number] Other: Voiding Method Toilet Toilet Weight 87.3 kg 87.3 kg PHYSICAL EXAMINATION: GENERAL: This is a 67-year-old gentleman in no apparent distress at the time of my examination. HEENT: Head is atraumatic, normocephalic. Pupils equal, round. Sclera anicteric. Conjunctiva are clear. Mucous membranes of the mouth are moist. Neck is supple. There is no elevated jugular venous pressure.] bruit is heard. HEART EXAMINATION: Heart S1, S2 normal. No murmur or gallop heard. CHEST EXAMINATION: Lungs are clear to auscultation and precussion. No chest wall tenderness is noted on palpation or with deep breathing. ABDOMEN: Soft, nontender. Bowel sounds are heard. No organomegaly noted. EXTREMITIES: 2+ peripheral pulses with no evidence of peripheral edema and no calf tenderness noted. NEUROLOGIC patient is awake, alert and oriented -3. . Results 03/11/18 04:00 03/10/18 19:24 Cardiac Enzymes 03/10/18 03/10/18 03/11/18 Range/Units 19:24 19:24 01:09 AST 31 (17-59) U/L CK-MB (CK-2) 0.9 0.8 (0.0-2.4) ng/mL Troponin I <0.012 <0.012 (0.000-0.034) ng/mL Coagulation 03/10/18 03/11/18 Range/Units 19:24 04:00 PT 10.1 (9.0-12.0) sec APTT 22.3 41.2 H (22.0-30.0) sec Lipids 03/11/18 Range/Units 04:00 Triglycerides 234 H (<150) mg/dL Cholesterol 111 (<200) mg/dL HDL Cholesterol 37 L (40-60) mg/dL CBC 03/10/18 03/11/18 Range/Units 19:24 04:00 WBC 7.7 (3.8-10.6) k/uL RBC 4.23 L (4.30-5.90) m/uL Hgb 13.4 (13.0-17.5) gm/dL Hct 39.1 (39.0-53.0) % Plt Count 201 186 (150-450) k/uL Comprehensive Metabolic Panel 03/10/18 Range/Units 19:24 Sodium 141 (137-145) mmol/L Potassium 4.4 (3.5-5.1) mmol/L Chloride 105 (98-107) mmol/L Carbon Dioxide 22 (22-30) mmol/L BUN 12 (9-20) mg/dL Creatinine 1.20 (0.66-1.25) mg/dL Glucose 369 H (74-99) mg/dL Calcium 9.4 (8.4-10.2) mg/dL AST 31 (17-59) U/L ALT 39 (21-72) U/L Alkaline Phosphatase 71 (38-126) U/L Total Protein 6.6 (6.3-8.2) g/dL Albumin 4.3 (3.5-5.0) g/dL Current Medications Generic Name Dose Route Start Last Admin Trade Name Freq PRN Reason Stop Dose Admin Acarbose 50 mg 03/11/18 07:30 03/11/18 08:08 Precose PO Not Given TID-W/MEALS [facility] Hydrocodone Bitart/Acetaminophen 1 each 03/10/18 22:55 03/11/18 01:40 Krypton 5-325 PO 1 each TID PRN Administration Pain Alprazolam 0.25 mg 03/10/18 23:00 03/10/18 23:18 Xanax PO Not Given BID [facility] Aspirin 325 mg 03/11/18 09:00 Aspirin PO DAILY [facility] Atenolol 50 mg 03/10/18 23:00 03/10/18 23:18 Tenormin PO Not Given HS [facility] Atorvastatin Calcium 40 mg 03/10/18 23:00 03/10/18 23:20 Lipitor PO Not Given HS [facility] Fluticasone Propionate 2 spray 03/10/18 23:00 03/10/18 23:18 Flonase Nasal [place] EA NOSTRIL Not Given HS [facility] Glipizide 5 mg 03/11/18 09:00 03/11/18 08:08 Glucotrol PO Not Given BID [facility] Heparin Sodium (Porcine) 0 unit 03/10/18 21:15 Heparin IV Q6HR PRN Low PTT Protocol Heparin Sodium/Dextrose 25,000 500 mls @ 20 mls/hr 03/10/18 21:30 03/11/18 04 :47 unit/ IV Solution IV 12.83 units/kg/hr .Q24H [facility] 23.68 mls/hr Protocol Titration Insulin Aspart 0 unit 03/11/18 12:30 Novolog SQ ACHS [facility] Protocol Lisinopril 10 mg 03/11/18 09:00 Zestril PO DAILY [facility] Metformin HCl 1,000 mg 03/11/18 09:00 03/11/18 08:08 Glucophage PO Not Given BID [facility] Morphine Sulfate 4 mg 03/10/18 21:15 Morphine Sulfate (Inj) IV Q5M PRN Chest Pain Nitroglycerin 0.4 mg 03/10/18 22:55 Nitrostat SUBLINGUAL Q5M PRN Chest Pain Pantoprazole Sodium 40 mg 03/11/18 09:00 Protonix PO DAILY ARTHUR Prasugrel 10 mg 03/11/18 09:00 Effient PO DAILY ARTHUR Intake and Output 03/10/18 03/11/18 03/11/18 22:59 06:59 14:59 Intake Total 200 695.266 Balance 200 695.266 Intake: IV 560 0.9 400 Heparin Sodium,Porcine/ 160 D5w Pmx 25,000 unit In Dextrose/Water 1 500ml. bag @ 20 mls/hr IV .Q24H ARTHUR Rx#:[id number] Intake, IV Titration 200 135.266 Amount Heparin Sodium,Porcine/ 135.266 D5w Pmx 25,000 unit In Dextrose/Water 1 500ml. bag @ 20 mls/hr IV .Q24H ARTHUR Rx#:[id number] Magnesium Sulfate-D5w Pmx 200 1 gm In Dextrose/Water 1 100ml.bag @ 100 mls/hr IVPB Q1H ARTHUR Rx#: [id number] Other: Voiding Method Toilet Toilet Weight 87.3 kg 87.3 kg 03/11/18 04:00 03/10/18 19:24 EKG Interpretations (text) EKG shows a normal sinus rhythm with nonspecific ST-T wave changes in the inferior leads. Assessment and Plan Plan: Assessment and plan #1 symptoms of chest tightness with associated shortness of breath, suggestive of acute coronary syndrome. Troponins negative 2, EKG shows normal sinus rhythm with nonspecific ST-T wave changes in the inferior leads. #2 known history of coronary artery disease with prior stent placements, most recently patient had the RCA stented in October of this year. Echocardiogram with Doppler study performed at that time revealed an ejection fraction of 50-55 % with mild to moderate mitral regurgitation. #3 hypertension #4 hyperlipidemia Plan We will obtain a third troponin value. We will also obtain an echocardiogram with Doppler study. Patient has been advised that he may need to undergo repeat cardiac catheterization, the risks and the benefits were again as explained to the patient in detail. Further recommendations to follow. DNP note has been reviewed, I agree with a documented findings and plan of care. Patient was seen and examined.
--- NOTE | 2018-03-11 08:27 | P.HPIM ---
History of Present Illness Chief complaint Chest pain, History of present illness The patient is a 67-year-old gentleman who has had a previous history of coronary artery disease who presents with upper anterior chest pain that has been occurring with any minimal exertion. Apparently he had 3 episodes during the day with very slight exertional activities in his house requiring him to sit down and take nitroglycerin with only partial relief of his pain. Some shortness of breath with exertion. Some nausea. No vomiting. No fever or chills. No unusual cough. Past medical history Patient does have history of coronary artery disease and previous stenting. Patient was here in October of this year and underwent angioplasty and stenting of the proximal right coronary artery. Patient also has had previous stenting back in 2018. Other risk factors include hypertension, hyperlipidemia, type 2 diabetes. Patient also has gastroesophageal reflux History of nephrolithiasis History of BPH Osteoarthritis specifically of the lumbar spine. Other previous surgeries include appendectomy. Cardiac stenting in 2013 in 2018. Colonoscopy in 2008. NO KNOWN DRUG ALLERGIES. Home medications Nexium 24 hours 22.3 mg daily Metformin thousand milligrams twice a day Nitroglycerin 0.4 mg sublingual when necessary pain Nasonex nasal spray 2 sprays in each nostrils at at bedtime Hydrocodone/acetaminophen 5-325 one 3 times a day as needed for pain Lipitor 40 mg at at bedtime Atenolol 50 mg at at bedtime Glipizide, Glucotrol XL 10 mg twice a day Effient 10 mg daily Zestril 10 mg daily Aspirin 81 mg daily Precose 50 mg 3 times a day before meals Xanax 0.25 twice a day. Review of systems Exertional chest pain as described above generally nonradiating. Pain lingers on after nitroglycerin and rest Patient without headache or visual disturbances. Some nausea but no vomiting. No fever or chills or cough. No new bowel or urinary symptomatology. No diarrhea. No hematochezia. No dysuria. No unusual leg edema. Family history Father had brain cancer. Social history Patient does not smoke or drink to excess. Lives locally with his in the area. Vital signs Temperature 97.4 with a pulse of 64 and respirations 18. Blood pressure 144/67 and he is 97% saturated on room air. Head and neck exam unremarkable. Extraocular movements are intact. Pupils are equal and reactive. No adenopathy, thyromegaly in the neck. No bruits. Lungs are clear to auscultation. Heart tones were regular without murmurs appreciated. Abdomen nontender. No organomegaly or masses detected. Rectal and genital exam deferred at this time. No unusual distal edema. He is alert and oriented. Cranial nerves intact. No Focal weakness noted. Laboratory CBC unremarkable with white count 7.7 hemoglobin 13.4 and a platelet count of 201. INR is 1.0. Electrolytes unremarkable. BUN is 12 with a creatinine 1.2 giving him a GFR of 62. Initial blood sugar on presentation was 369 and it has decreased to 172 this morning. Troponin less than 0.0122. CK also 109 and 95 respectively. Albumin normal at 4.3. Triglycerides were elevated at 234 with cholesterol 111 and LDL cholesterol 27. HDL of 37. Magnesium slightly low at 1.3. EKG showed a sinus rhythm without new ischemic changes. Chest x-ray showed no acute pulmonary process Impressions 1. Recurrent chest pain with minimal exertion consistent with an unstable angina-type picture. Normal troponins and EKG at this time. Patient with underlying history of coronary artery disease and multiple risk factors as stated above. 2. Low magnesium. Plans Patient is nothing by mouth awaiting consult with cardiology for possible further evaluation and treatment. We'll place the patient on Accu-Cheks and coverage is needed. Hold his diabetic medications including metformin this morning. Continue his other medications and medications for blood pressure with small sips of water this morning. Patient is on heparin. magnesium replacement ordered. Discussed with patient and nursing staff this morning. Past Medical History Past Medical History: Coronary Artery Disease (CAD), Cancer, Chest Pain / Angina , Diabetes Mellitus, GERD/Reflux, Hyperlipidemia, Hypertension, Myocardial Infarction ([place]), Osteoarthritis (OA), Prostate Disorder, Skin Disorder Additional Past Medical History / Comment(s): Hx. KIDNEY STONES, occasional SOB recently, diff swallowing-feels like in throat, diarrhea, dry skin, hx bladder cancer Last Myocardial Infarction Date:: 2004 History of Any Multi-Drug Resistant Organisms: None Reported Past Surgical History: Appendectomy, Back Surgery, Ear Surgery, Heart Catheterization, Heart Catheterization With Stent, Orthopedic Surgery Additional Past Surgical History / Comment(s): METAL SCREWS IN BACK, RIGHT EAR TUBE/now gone, EPIDURAL PAIN SHOTS, previous stents 2004,2005, LITHOTRIPSY, rt shoulder rotator cuff Past Anesthesia/Blood Transfusion Reactions: No Reported Reaction Date of Last Stent Placement:: 05/2014 Past Psychological History: Anxiety Smoking Status: Never smoker Past Alcohol Use History: Rare Past Drug Use History: None Reported - Past Family History Father Family Medical History: Cancer Additional Family Medical History / Comment(s): BRAIN Mother Family Medical History: Chest Pain / Angina, Coronary Artery Disease (CAD), Dementia, Diabetes Mellitus, Hyperlipidemia, Hypertension, Respiratory Disorder Additional Family Medical History / Comment(s): CABGx4 (No [place]), ruptured colon Medications and Allergies Home Medications Medication Instructions Recorded Confirmed Type ALPRAZolam [Xanax] 0.25 mg PO BID 05/31/14 03/10/18 History Acarbose [Precose] 50 mg PO TID 05/31/14 03/10/18 History Atenolol [Tenormin] 50 mg PO HS 05/31/14 03/10/18 History Atorvastatin [Lipitor] 40 mg PO HS 05/31/14 03/10/18 History Lisinopril [Zestril] 10 mg PO DAILY 05/31/14 03/10/18 History Mometasone Furoate [Nasonex Nasal 2 spray EA NOSTRIL HS 05/31/14 03/10/18 History [place]] glipiZIDE [Glucotrol XL] 10 mg PO BID 05/31/14 03/10/18 History Esomeprazole Magnesium [NexIUM 22.3 mg PO DAILY 10/27/16 03/10/18 History 24Hr] metFORMIN HCL [Glucophage] 1,000 mg PO BID 10/25/17 03/10/18 History Aspirin 81 mg PO DAILY #303 chew 10/28/17 03/10/18 Rx Nitroglycerin Sl Tabs [Nitrostat] 0.4 mg SUBLINGUAL Q5M PRN #25 tab 10/28/1702/20 Rx Prasugrel [Effient] 10 mg PO DAILY #30 tab 10/28/17 03/10/18 Rx HYDROcodone/APAP 5-325MG [[place] 1 tab PO TID PRN 03/10/18 03/10/18 History 5-325] Allergies Allergy/AdvReac Type Severity Reaction Status Date / Time No Known Allergies Allergy Verified 03/10/18 19:37 Physical Exam Vitals: Vital Signs Temp Pulse Pulse Resp BP BP Pulse Ox 03/11/18 04:00 97.4 F L 64 18 144/67 97 03/11/18 00:00 61 18 03/10/18 23:59 97.0 F L 61 18 169/76 98 03/10/18 22:15 96.6 F L 62 18 181/89 97 03/10/18 22:09 58 L 16 148/74 98 03/10/18 20:56 57 L 16 153/71 98 03/10/18 20:07 53 L 17 191/87 100 03/10/18 19:10 97.9 F 57 L 18 176/78 99 Intake and Output 03/10/18 03/11/18 03/11/18 22:59 06:59 14:59 Intake Total 200 695.266 Balance 200 695.266 Intake: IV 560 0.9 400 Heparin Sodium,Porcine/ 160 D5w Pmx 25,000 unit In Dextrose/Water 1 500ml. bag @ 20 mls/hr IV .Q24H ARTHUR Rx#:[id number] Intake, IV Titration 200 135.266 Amount Heparin Sodium,Porcine/ 135.266 D5w Pmx 25,000 unit In Dextrose/Water 1 500ml. bag @ 20 mls/hr IV .Q24H ARTHUR Rx#:[id number] Magnesium Sulfate-D5w Pmx 200 1 gm In Dextrose/Water 1 100ml.bag @ 100 mls/hr IVPB Q1H ARTHUR Rx#: [id number] Other: Voiding Method Toilet Toilet Weight 87.3 kg 87.3 kg Results CBC & Chem 7: 03/11/18 04:00 03/10/18 19:24 Labs: Abnormal Lab Results - Last 24 Hours (Table) 03/10/18 03/10/18 03/10/18 Range/Units 19:24 19:24 22:58 RBC 4.23 L (4.30-5.90) m/uL APTT (22.0-30.0) sec Glucose 369 H (74-99) mg/dL POC Glucose (mg/dL) 232 H (75-99) mg/dL Magnesium 1.3 L (1.6-2.3) mg/dL Triglycerides (<150) mg/dL HDL Cholesterol (40-60) mg/dL 03/11/18 03/11/18 03/11/18 Range/Units 04:00 04:00 06:33 RBC (4.30-5.90) m/uL APTT 41.2 H (22.0-30.0) sec Glucose (74-99) mg/dL POC Glucose (mg/dL) 172 H (75-99) mg/dL Magnesium (1.6-2.3) mg/dL Triglycerides 234 H (<150) mg/dL HDL Cholesterol 37 L (40-60) mg/dL Thrombosis Risk Factor Assmnt - Choose All That Apply Any of the Below Risk Factors Present?: Yes Each Factor Represents 1 point: Acute [place] Other Risk Factors: Yes Each Risk Factor Represents 2 Points: Age 61-74 years Thrombosis Risk Factor Assessment Total Risk Factor Score: 3 Thrombosis Risk Factor Assessment Level: Moderate Risk
[2018-03-11 08:47] LABS: Creatine Kinase 88 U/L (55-170)
[2018-03-11 08:57] LABS: Creatine Kinase MB 0.7 ng/mL (0.0-2.4); Troponin I <0.012 ng/mL (0.000-0.034)
[2018-03-11] MEDS ORDERED: METOPROLOL TARTRATE 25 MG TAB PO SCH (09:00)
[2018-03-11] MEDS ORDERED: ATORVASTATIN 80 MG TAB PO SCH (09:00)
[2018-03-11] MEDS ORDERED: ASPIRIN 325 MG TAB PO STA (09:55)
[2018-03-11] MEDS ORDERED: SODIUM CHLORIDE 0.9% 1,000 ML in EMPTY BAG 1 BAG IV ONE (09:55)
[2018-03-11] MEDS ORDERED: NITROGLYCERIN SL TABS 0.4 MG TAB SUBLINGUAL PRN (09:55)
[2018-03-11] MEDS ORDERED: ALPRAZolam 0.5 MG TAB PO PRN (09:55)
[2018-03-11] MEDS ORDERED: ATORVASTATIN 80 MG TAB PO STA (09:59)
[2018-03-11] MEDS: MAGNESIUM SULFATE-D5W PMX 1 GM in DEXTROSE/WATER 1 100ML.BAG IVPB SCH ×2 (10:51→12:33)
[2018-03-11 11:45] LABS: Glucose,Whole Blood 196 mg/dL (75-99)
[2018-03-11] MEDS: INSULIN ASPART 100 UNIT/ML 1 ML 10 ML VIAL SQ SCH ×3 (11:45→21:54)
--- NOTE | 2018-03-11 14:22 | ECHOF ---
Referral Reason:assess lvf MEASUREMENTS -------- HEIGHT: 172.7 cm WEIGHT: 87.1 kg BP: 144/67 RVIDd: 2.6 cm (< 3.3) IVSd: 1.2 cm (0.6 - 1.1) LVIDd: 4.7 cm (3.9 - 5.3) LVPWd: 1.3 cm (0.6 - 1.1) IVSs: 1.3 cm LVIDs: 4.5 cm LVPWs: 1.4 cm LA Diam: 3.8 cm (2.7 - 3.8) LAESV Index (A-L): 28.01 ml/m Ao Diam: 3.5 cm (2.0 - 3.7) AV Cusp: 2.0 cm (1.5 - 2.6) LA Diam: 4.3 cm (2.7 - 3.8) MV EXCURSION: 21.518 mm (> 18.000) MV EF SLOPE: 106 mm/s (70 - 150) EPSS: 0.7 cm MV E Jae: 0.55 m/s MV DecT: 228 ms MV A Jae: 0.64 m/s MV E/A Ratio: 0.85 RAP: 5.00 mmHg RVSP: 10.02 mmHg FINDINGS -------- Sinus rhythm. This was a techncally difficult study with suboptimal views, , Lumason utilized for enhancement of im ages. The left ventricular size is normal. There is mild concentric left ventricular hypertrophy. Overa ll left ventricular systolic function is mild-moderately impaired with, an EF between 40 - 45 %. Ba alexx posterior LV wall motion is hypokinetic. Basal inferior LV wall motion is hypokinetic. Basa l inferoseptal LV wall motion is hypokinetic. Mid inferior LV wall motion is hypokinetic. Apica l inferior LV wall motion is hypokinetic. The right ventricle is normal in size. LA is midly dilated 29-33ml/m2. The right atrial size is normal. 5.0mg OF Lumason UTLIZED: 2 OR MORE WALL SEGMENTS NOT VISUALIZED. There is mild aortic valve sclerosis. The mitral valve leaflets are mildly thickened. Mild mitral regurgitation is present. Mild tricuspid regurgitation present. There is no evidence of pulmonary hypertension. The right v entricular systolic pressure, as measured by Doppler, is 10.02mmHg. There is no pulmonic regurgitation present. There is no pericardial effusion. CONCLUSIONS -------- 1. Sinus rhythm. 2. This was a techncally difficult study with suboptimal views, , Lumason utilized for enhancement of images. 3. The left ventricular size is normal. 4. There is mild concentric left ventricular hypertrophy. 5. Overall left ventricular systolic function is mild-moderately impaired with, an EF between 40 - 45 %. 6. Basal posterior LV wall motion is hypokinetic. 7. Basal inferior LV wall motion is hypokinetic. 8. Basal inferoseptal LV wall motion is hypokinetic. 9. Mid inferior LV wall motion is hypokinetic. 10. Apical inferior LV wall motion is hypokinetic. 11. LA is midly dilated 29-33ml/m2. 12. 5.0mg OF Lumason UTLIZED: 2 OR MORE WALL SEGMENTS NOT VISUALIZED. 13. There is mild aortic valve sclerosis. 14. The mitral valve leaflets are mildly thickened. 15. Mild mitral regurgitation is present. 16. Mild tricuspid regurgitation present. 17. There is no evidence of pulmonary hypertension. 18. There is no pulmonic regurgitation present. 19. There is no pericardial effusion. EDGE BEADER: Whitney Najera RDCS
[2018-03-11 16:30] LABS: Glucose,Whole Blood 244 mg/dL (75-99)
[2018-03-11] MEDS: HEPARIN SODIUM,PORCINE/D5W PMX 25,000 UNIT in DEXTROSE/WATER 1 500ML.BAG IV SCH (17:16)
[2018-03-11 17:35] LABS: Hemoglobin A1C 8.3 % (4.0-6.0)
[2018-03-11 21:08] LABS: Glucose,Whole Blood 142 mg/dL (75-99)
[2018-03-11] MEDS: FLUTICASONE 50MCG/SPRAY NASAL 16GM EA NOSTRIL SCH (21:54)
[2018-03-11] MEDS: ATENOLOL 50 MG TAB PO SCH (21:57)
[2018-03-12 05:52] LABS: Mean Platelet Volume 7.4; Platelet Count 177 k/uL (150-450)
[2018-03-12] MEDS ORDERED: ATORVASTATIN 80 MG TAB PO ONE (06:00)
[2018-03-12 06:33] LABS: Glucose,Whole Blood 109 mg/dL (75-99)
[2018-03-12] MEDS: INSULIN ASPART 100 UNIT/ML 1 ML 10 ML VIAL SQ SCH ×3 (06:39→18:07)
[2018-03-12] MEDS: LISINOPRIL 10 MG TAB PO SCH (06:40)
[2018-03-12] MEDS: PRASUGREL 10 MG TAB PO SCH (06:40)
[2018-03-12] MEDS: ASPIRIN 325 MG TAB PO SCH (06:40)
[2018-03-12] MEDS: PANTOPRAZOLE 40 MG TABLET PO SCH (06:40)
[2018-03-12] MEDS: ALPRAZolam 0.25 MG TAB PO SCH (06:40)
[2018-03-12] MEDS: ACARBOSE 25 MG TAB PO SCH ×2 (06:42→14:59)
--- NOTE | 2018-03-12 07:50 | P.PN ---
Progress Note - Text The patient is a 67-year-old gentleman who has a history of coronary artery disease presented 2 days previous with chest pain of the recurrent nature with very minimal exertion. Consistent with an unstable angina picture. The patient has been seen by cardiology. Today he is resting in bed. States he does have some slight chest pain. He has not been active for the most part during his hospitalization. Vital signs show a temperature of 98 with a pulse of 62 and respirations 16. Blood pressure 164/75 and he is 98% saturated on room air. Lung and heart examination is clear and regular at this time. No unusual edema. No focal neurological changes. Laboratory Magnesium slightly low at 1.5. Blood sugar is 109. PTT was 56. Platelet count 177. Impressions and plans Patient is anticipating cardiac catheterization later this morning. Further recommendations pending those results. Patient understands the reasons for further testing. His questions were answered to the best of my ability this morning.
[2018-03-12] MEDS: HYDROcodone/APAP 5-325MG 1 EACH TAB PO PRN ×2 (08:09→15:10)
[2018-03-12] MEDS: glipiZIDE 5 MG TAB PO SCH (10:09)
[2018-03-12] MEDS: metFORMIN 500 MG TAB PO SCH (10:09)
--- NOTE | 2018-03-12 10:59 | PN ---
PROGRESS NOTE Mr. Wright is a gentleman unstable angina. He had a comfortable night. No anginal symptoms. Vital signs are stable. There is no JVD or carotid bruit. S1, S2 heard normally. Lungs are clear. Abdomen and lower extremity exam unchanged. Plan is to continue current medical regimen and is going to have a cardiac cath to be performed by Dr. West today. MMODL / IJN: [id number] /
[2018-03-12 12:20] LABS: Glucose,Whole Blood 109 mg/dL (75-99)
[2018-03-12] MEDS ORDERED: fentaNYL (PF) 50 MCG/ML 2 ML AMP IVP ONE (13:45)
[2018-03-12] MEDS ORDERED: MIDAZOLAM 2 MG/2 ML VIAL IVP ONE (13:45)
[2018-03-12] MEDS ORDERED: LIDOCAINE 2% INJ 20 MG/ML SQ ONE ×2 (13:49→17:32)
[2018-03-12] MEDS ORDERED: SODIUM CHLORIDE 0.9% 500 ML IV ONE (13:51)
[2018-03-12] MEDS ORDERED: RX INFO: IV CONTRAST WAS GIVEN 1 EACH MISC MISCELLANE PRN ×2 (14:11→19:33)
[2018-03-12] MEDS ORDERED: IOPAMIDOL-370 125ML BTL INJ ONE ×2 (14:18→18:37)
[2018-03-12] MEDS ORDERED: HEPARIN SODIUM 1,000 UN/ML (10ML VL) IV ONE (14:24)
[2018-03-12] MEDS ORDERED: DEXTROSE/WATER 1 500ML.BAG with HEPARIN SODIUM,PORCINE/D5W PMX 25,000 UNIT IV SCH (15:00)
[2018-03-12] MEDS: SODIUM CHLORIDE 0.9% 1,000 ML IV SCH (15:11)
[2018-03-12] MEDS ORDERED: fentaNYL (PF) 50 MCG/ML 2 ML AMP ONE (17:04)
[2018-03-12] MEDS ORDERED: IV FLUID CONTINUATION 1,000 ML IV ONE (17:06)
[2018-03-12] MEDS ORDERED: fentaNYL (PF) 50 MCG/ML 2 ML AMP IV ONE (17:28)
[2018-03-12] MEDS ORDERED: BIVALIRUDIN BOLUS 250 MG/50 ML IV ONE (17:34)
[2018-03-12] MEDS ORDERED: BIVALIRUDIN 250 MG in SODIUM CHLORIDE 0.9% 50 ML IV ONE ×2 (17:35→18:29)
[2018-03-12] MEDS ORDERED: NITROGLYCERIN 1000MCG/10ML SYRINGE INTRACORON ONE (17:47)
--- NOTE | 2018-03-12 17:55 | P.PCN ---
Date of Procedure: 03/12/18 Preoperative Diagnosis: Unstable angina Postoperative Diagnosis: Critical stenosis involving the diagonal Procedure(s) Performed: Left heart catheterization without Left ventriculography Description of Procedure: HISTORY: This is a 67-year-old gentleman with history of ischemic or disease and previous inferior wall VT. Patient had several stent placement in the right coronary artery. He is admitted to the hospital now with symptoms sized unstable angina. His cardiac enzymes were negative. Patient is advised to have a cardiac catheterization for definite diagnosis. CONSENT:I have discussed the risks, benefits and alternative therapies for the above-mentioned procedure and for both sedation/analgesia as well as necessary blood product administration, if indicated, as they pertain to this patient. The patient has indicated understanding and acceptance of the risks and procedures discussed. PROCEDURE: Patient was brought to the lab in a fasting state. Patient was given some IV sedation. The right groin is infiltrated with lidocaine and right femoral artery was entered using Seldinger technique. A 6-Kinyarwanda catheter was left in place and selective coronary arteriography was performed. Patient tolerated the procedure well. Femoral angiogram was performed . No immediate complications were noted and patient is waiting to have stent placement of the diagonal by Dr. glaser. Conscious Sedation: Versed 1mg Fentanyl 50 g Duration 19minutes HEMODYNAMICS:The aortic pressure is about a 150/70. Left ankle end-diastolic pressure is 15-20 SELECTIVE CORONARY ARTERIOGRAPHY: LEFT MAIN: Normal length With to smoke. The distal narrowing with about 30% luminal narrowing. THE LEFT ANTERIOR DESCENDING CORONARY ARTERY: This is a good caliber vessel giving rise to good-sized diagonal branch and the diagonal branch has about 70-80% eccentric lesion in the proximal portion with some haziness. THE LEFT CIRCUMFLEX AND IS CORONARY ARTERY: This is a moderate caliber vessel giving rise good-sized OM branch. The circumflex coronary artery and branches are free of occlusive disease. THE RIGHT CORONARY ARTERY: This is a good caliber vessel with multiple stents in the proximal and midportion. The stents are patent patent with mild diffuse disease. No critical lesion noted in the right coronary artery LEFT VENTRICULOGRAPHY: Not performed FINAL IMPRESSION: Critical lesion involving the diagonal. The stents in the right coronary artery are patent with mild diffuse disease PLAN: Stent Placement of the diagonal branch PROGNOSIS: Fair
[2018-03-12] MEDS ORDERED: MORPHINE SULF 5MG/10ML VL ONE (18:32)
[2018-03-12] MEDS: MORPHINE SULF 5MG/10ML VL IV ONE ×3 (18:34→19:18)
[2018-03-12] MEDS ORDERED: IOPAMIDOL-370 100ML BTL INJ ONE ×2 (18:37→19:09)
[2018-03-12] MEDS ORDERED: NITROGLYCERIN-D5W PMX 50 MG in DEXTROSE/WATER 1 250ML.BAG IV ONE (19:15)
[2018-03-12] MEDS ORDERED: MIDAZOLAM 2 MG/2 ML VIAL ONE (19:31)
[2018-03-12] MEDS ORDERED: ATROPINE SULFATE 0.1 MG/ML 10ML SYRINGE IV PRN (19:33)
[2018-03-12] MEDS ORDERED: MAG HYDROX/AL HYDROX/SIMETH 30 ML CUP PO PRN (19:33)
[2018-03-12] MEDS ORDERED: ZOLPIDEM 5 MG TAB PO PRN (19:33)
[2018-03-12] MEDS ORDERED: NITROGLYCERIN SL TABS 0.4 MG TAB SUBLINGUAL PRN (19:33)
[2018-03-12] MEDS ORDERED: MIDAZOLAM 2 MG/2 ML VIAL IV ONE (19:40)
[2018-03-12] MEDS ORDERED: SODIUM CHLORIDE 0.9% 1,000 ML IV SCH (19:45)
[2018-03-12] MEDS ORDERED: NITROGLYCERIN-D5W PMX 50 MG in DEXTROSE/WATER 1 250ML.BAG IV SCH (19:45)
[2018-03-12 20:47] LABS: Glucose,Whole Blood 208 mg/dL (75-99)
--- NOTE | 2018-03-12 20:47 | PTCA ---
PERCUTANEOUSTRANS CORORONARY ANGIOGRAPHY Mr. Wright is a 67-year-old male with a known history of coronary artery disease , status post multiple percutaneous revascularizations of the right coronary artery, who presented with symptoms of chest discomfort, underwent cardiac catheterization by Dr. West, was found to have critical stenosis involving a calcified 1st diagonal branch. In view of that, recommendation was made regarding angioplasty and stenting. The procedures, risks, benefits and complications were discussed with the patient, who was in full understanding and agreement. PROCEDURE: Patient was brought to laboratory tester in a fasting semi-sedated state after receiving fentanyl, Benadryl and achieving moderate conscious sedated state. Using a guidewire exchange technique, a 6-Ghanaian sheath in the right femoral artery was exchanged to a new 6-Ghanaian sheath. Following that, a 6-Ghanaian FR4 guiding catheter was introduced in the system and the left main was cannulated. Following that, a 0.014 balanced medium weight J-wire was advanced across the lesion, positioned distally. Following that, attempts to advance a 2.25 x 12 mm Trek balloon were unsuccessful. Following that, balloon was removed and a 1.5 x 6 mm Trek balloon was advanced and inflation up to 10 atmospheres was done. Following that, that balloon was removed and another 0.014 advanced medium weight J-wire was advanced and positioned in the LAD and attempted to advance. Subsequently, the 2.25 x 8 mm Trek balloon was advanced and inflations were done at maximum of 8 atmospheres. Following that, the balloon was removed and attempts to advance a 2.25 x 8 mm Xience Alpine stent were unsuccessful. There was difficulty entering the proximal LAD because of severe calcification. At that point, the wire was exchanged to a whisper J-wire and a GuideLiner was advanced in spite of that, there was inability to advance the stent. At that point, the guiding catheter, the wire and the balloon were removed and a 6-Ghanaian EBU 3.75 guiding catheter introduced in the system. After cannulating the left main, the whisper J-wire was advanced into the diagonal branch and a 2nd whisper J-wire was advanced into the distal LAD. Following that, the 1.5 x 6 mm Trek balloon was advanced and inflation at 8 atmospheres was done. The balloon was removed and another 2.25 Trek balloon was advanced and inflation was done at 8 atmospheres. Following that, the balloon was removed and attempts to advance a 2.25 x 8 mm Xience Alpine stent were unsuccessful. That stent was removed and a 2.0 x 8 mm Mini Vision was deployed, postdilated at 14 atmospheres. Following that, the balloon was removed and attempts to advance a stent distal to the 1st one because of a distal dissection were unsuccessful, in spite of multiple attempts. The stent was removed and a 2.0 x 8 mm Trek balloon was advanced and inflations were done into the diagonal branch. Attempts to advance the stent after were unsuccessful because of the severe calcification. At that point, the balloon and the wire were withdrawn back in the guiding catheter. Images were obtained repeated. Subsequently the guiding catheter, the balloon and the guidewire were removed. The sheath was removed. Hemostasis was obtained with deployment of an Angio-Seal. The patient was returned to his room in stable condition. Upon initiation, the patient had chest discomfort and some EKG changes. The chest discomfort was improving at the end the procedure. He received Angiomax per protocol. RESULTS: Deployment of a stent in the proximal diagonal branch with inability to advance the stent distally with evidence of distal dissection. There was still a flow in one of the branches of the diagonal distally. RECOMMENDATION: Patient will be continued on aspirin, Effient, beta blockers and statin. The importance of dual antiplatelets have been discussed with the patient and his family. DURATION OF PROCEDURE: 104 minutes. MEOLDY / NIK: [id number] / MTDAnthony
[2018-03-12 21:20] LABS: Basophils % (A) 0 %; Eosinophils # (A) 0.2 k/uL (0-0.7); Eosinophils % (A) 2 %; HCT 35.8 % (39.0-53.0); HGB 11.9 gm/dL (13.0-17.5); Lymphocytes # (A) 1.4 k/uL (1.0-4.8); Lymphocytes % (A) 15 %; MCH 30.7 pg (25.0-35.0); MCHC 33.1 g/dL (31.0-37.0); MCV 92.8 fL (80.0-100.0); Mean Platelet Volume 6.9; Monocytes # (A) 0.4 k/uL (0-1.0); Monocytes % (A) 4 %; Neutrophils # (A) 7.2 k/uL (1.3-7.7); Neutrophils % (A) 78 %; Platelet Count 199 k/uL (150-450); RBC 3.86 m/uL (4.30-5.90); RDW 13.9 % (11.5-15.5); WBC 9.3 k/uL (3.8-10.6)
[2018-03-12 21:44] LABS: ALT 40 U/L (21-72); AST 30 U/L (17-59); Albumin 3.4 g/dL (3.5-5.0); Alkaline Phosphatase 59 U/L (38-126); Anion Gap 12 mmol/L; Blood Urea Nitrogen 10 mg/dL (9-20); Calcium 8.7 mg/dL (8.4-10.2); Carbon Dioxide 19 mmol/L (22-30); Chloride 109 mmol/L (98-107); Glucose 222 mg/dL (74-99); Magnesium 1.5 mg/dL (1.6-2.3); Phosphorus 3.2 mg/dL (2.5-4.5); Sodium 140 mmol/L (137-145); Total Bilirubin 0.4 mg/dL (0.2-1.3); Total Protein 5.5 g/dL (6.3-8.2)
[2018-03-12 23:34] LABS: Glucose,Whole Blood 261 mg/dL (75-99)
[2018-03-13] MEDS: INSULIN ASPART 100 UNIT/ML 1 ML 10 ML VIAL SQ SCH ×5 (00:05→21:08)
[2018-03-13] MEDS: HYDROcodone/APAP 5-325MG 1 EACH TAB PO PRN ×3 (00:06→23:57)
[2018-03-13] MEDS: ALPRAZolam 0.25 MG TAB PO SCH ×3 (00:06→20:57)
[2018-03-13] MEDS: ACARBOSE 25 MG TAB PO SCH ×4 (02:54→16:55)
[2018-03-13] MEDS: ATORVASTATIN 40 MG TAB PO SCH ×2 (02:55→20:58)
[2018-03-13] MEDS: FLUTICASONE 50MCG/SPRAY NASAL 16GM EA NOSTRIL SCH ×2 (02:55→22:09)
[2018-03-13] MEDS: ATENOLOL 50 MG TAB PO SCH ×2 (02:55→20:57)
[2018-03-13] MEDS: glipiZIDE 5 MG TAB PO SCH ×3 (02:55→20:58)
[2018-03-13 04:18] LABS: Basophils % (A) 0 %; Eosinophils % (A) 0 %; HCT 32.7 % (39.0-53.0); HGB 11.1 gm/dL (13.0-17.5); Lymphocytes % (A) 12 %; MCH 31.4 pg (25.0-35.0); MCHC 33.9 g/dL (31.0-37.0); MCV 92.5 fL (80.0-100.0); Mean Platelet Volume 7.5; Monocytes # (A) 0.4 k/uL (0-1.0); Monocytes % (A) 5 %; Neutrophils # (A) 6.7 k/uL (1.3-7.7); Neutrophils % (A) 81 %; Platelet Count 190 k/uL (150-450); RBC 3.53 m/uL (4.30-5.90); RDW 13.9 % (11.5-15.5); WBC 8.3 k/uL (3.8-10.6)
[2018-03-13 04:40] LABS: Anion Gap 10 mmol/L; Blood Urea Nitrogen 12 mg/dL (9-20); Carbon Dioxide 24 mmol/L (22-30); Chloride 105 mmol/L (98-107); Glucose 174 mg/dL (74-99); Magnesium 1.5 mg/dL (1.6-2.3); Phosphorus 4.5 mg/dL (2.5-4.5); Potassium 4.4 mmol/L (3.5-5.1); Sodium 139 mmol/L (137-145)
[2018-03-13] MEDS: SODIUM CHLORIDE 0.9% 1,000 ML IV SCH ×2 (04:43→16:55)
[2018-03-13] MEDS: MAGNESIUM SULFATE-D5W PMX 1 GM in DEXTROSE/WATER 1 100ML.BAG IVPB SCH ×2 (06:36→07:54)
[2018-03-13 07:16] LABS: Glucose,Whole Blood 154 mg/dL (75-99)
--- NOTE | 2018-03-13 07:52 | P.PN ---
Progress Note - Text The patient is a 67-year-old gentleman who has a history of coronary artery disease and presented `with recurrent chest pain associated with minimal exertion consistent with unstable angina type presentation. Patient underwent percutaneous transthoracic coronary angioplasty yesterday and it was found to have critical stenosis of a calcified first diagonal branch of the right coronary artery. The patient states he did have significant amount of pain during the procedure. Seems to be back at his baseline this morning. Vital signs temperature 98.3 with a pulse of 52 and blood pressure 117/63. He is 94% saturated on room air. Lungs are clear. Heart regular without murmurs. Abdomen nontender. No unusual distal edema. No focal neurological changes. Laboratory White count 8.3 with hemoglobin 11.1 and a platelet count of 190. Electrolytes were normal. GFR 88. Blood sugar 174. Magnesium is 1.5. Troponin did increase up to 0.314 Impression and plans Patient is anticipating being transferred back to [facility] where likely he 'll be ambulated and resume more normal activity. He will continue to be treated medically with dual antiplatelet medication along with beta blockers and statin. We'll await further recommendations from cardiology pending how patient does clinically on selective care. This was discussed with patient at bedside this morning.
[2018-03-13] MEDS: ALPRAZolam 0.25 MG TAB PO PRN (07:55)
[2018-03-13] MEDS: ASPIRIN 81 MG PO SCH (09:55)
[2018-03-13] MEDS: PANTOPRAZOLE 40 MG TABLET PO SCH (09:55)
[2018-03-13] MEDS: LISINOPRIL 10 MG TAB PO SCH (09:56)
[2018-03-13] MEDS: PRASUGREL 10 MG TAB PO SCH (09:56)
[2018-03-13 10:07] VITALS: BMI 29.5
[2018-03-13 11:54] LABS: Glucose,Whole Blood 192 mg/dL (75-99)
--- NOTE | 2018-03-13 15:11 | P.PN ---
Subjective Progress Note Date: 03/13/18 This is a pleasant 67-year-old gentleman with history of hypertension , hyperlipidemia,, coronary artery disease with prior stent placements, most recent stent was placed in October of this year at which time patient underwent successful stenting of the proximal right coronary artery. He follows regularly with Dr. West in the office. He presents to the hospital with symptoms of progressively worsening chest tightness and shortness of breath. He states that shortly after his stent placement he had noticed some of these symptoms however they occurred very infrequently. As time has been passing, the chest tightness and shortness of breath have been occurring much more frequently, even with walking very short distances. Patient was at the [facility] yesterday, states that he was walking and had to sit down and take nitroglycerin because of the symptoms. Blood pressure on arrival 144/60 with a heart rate in the 60s, 97% on room air. White blood cell count is normal, hemoglobin 13.4, platelet count 186. Sodium 141, potassium 4.4, BUN 12, creatinine 1.2. Troponins are negative 2. Cholesterol 111, triglycerides 234 , LDL 27, HDL 37. Patient's home medications include Nexium, metformin, Lipitor 40 mg daily, Tenormin 50 mg daily, glipizide, Effient 10 mg daily, Zestril 10 mg daily, Ecotrin 81 mg daily and Precose. EKG on arrival here showed a normal sinus rhythm with nonspecific ST-T wave changes noted in the inferior leads. Morning showed a sinus bradycardia with nonspecific inferior ST -T wave changes. At the time of my examination this morning, patient is currently chest pain-free. 03/13/2018 Patient underwent a cardiac catheterization yesterday which revealed a critical lesion involving the diagonal the stents in the right coronary artery were patent. Patient then underwent deployment of a stent in the proximal diagonal with inability to advance the stent distally, evidence of distal dissection. There was still of flow in one of the branches of the diagonal distally. Patient was continued on aspirin, Effient, beta blockers, and statin she did have an episode of chest discomfort once the nitroglycerin was weaned off, he was reinitiated back on the nitro drip and since then has been chest pain-free. His EKG from this morning showed a normal sinus rhythm with no changes from post-PCI. Blood pressure 144/70 with a heart rate in the 60s, 94% on room air. White blood cell count 8.3, hemoglobin 11.1, platelet count 190. Sodium 139, potassium 4.4, BUN 12, creatinine 0.9. At the time of my examination, patient is currently chest pain-free, nitro drip this at 5 mics. Objective - Vital Signs Vital signs: Vital Signs Temp 97.9 F 03/13/18 12:00 Pulse 63 03/13/18 13:00 Resp 12 03/13/18 08:00 BP 145/71 03/13/18 13:00 Pulse Ox 94 L 03/13/18 13:00 Intake & Output 03/12/18 03/13/18 03/13/18 18:59 06:59 18:59 Intake Total 314.6 345.6 638.475 Output Total 650 1350 Balance 314.6 -304.4 -711.525 Weight 88.2 kg Intake: IV 314.6 345.6 525 0.9 345 525 Intake, IV Titration 113.475 Amount Nitroglycerin-D5w Pmx 50 113.475 mg In Dextrose/Water 1 250ml.bag @ Titrate IV . Q0M [facility] Rx#:[id number] Output: Urine 650 1350 Other: Voiding Method Toilet Toilet Toilet # Voids 1 1 1 - Exam PHYSICAL EXAMINATION: GENERAL: This is a 67-year-old gentleman in no apparent distress at the time of my examination. HEENT: Head is atraumatic, normocephalic. Pupils equal, round. Sclera anicteric. Conjunctiva are clear. Mucous membranes of the mouth are moist. Neck is supple. There is no elevated jugular venous pressure.] bruit is heard. HEART EXAMINATION: Heart S1, S2 normal. No murmur or gallop heard. CHEST EXAMINATION: Lungs are clear to auscultation and precussion. No chest wall tenderness is noted on palpation or with deep breathing. ABDOMEN: Soft, nontender. Bowel sounds are heard. No organomegaly noted. Right groin soft, no evidence of any hematoma. EXTREMITIES: 2+ peripheral pulses with no evidence of peripheral edema and no calf tenderness noted. NEUROLOGIC patient is awake, alert and oriented -3. . - Labs CBC & Chem 7: 03/13/18 03:47 03/13/18 03:47 Labs: Abnormal Lab Results - Last 24 Hours (Table) 03/12/18 03/12/18 03/12/18 Range/Units 20:45 20:58 20:58 RBC 3.86 L (4.30-5.90) m/uL Hgb 11.9 L (13.0-17.5) gm/dL Hct 35.8 L (39.0-53.0) % Chloride 109 H (98-107) mmol/L Carbon Dioxide 19 L (22-30) mmol/L Glucose 222 H (74-99) mg/dL POC Glucose (mg/dL) 208 H (75-99) mg/dL Magnesium 1.5 L (1.6-2.3) mg/dL Troponin I (0.000-0.034) ng/mL Total Protein 5.5 L (6.3-8.2) g/dL Albumin 3.4 L (3.5-5.0) g/dL 03/12/18 03/13/18 03/13/18 Range/Units 23:33 03:47 03:47 RBC 3.53 L (4.30-5.90) m/uL Hgb 11.1 L (13.0-17.5) gm/dL Hct 32.7 L (39.0-53.0) % Chloride (98-107) mmol/L Carbon Dioxide (22-30) mmol/L Glucose 174 H (74-99) mg/dL POC Glucose (mg/dL) 261 H (75-99) mg/dL Magnesium 1.5 L (1.6-2.3) mg/dL Troponin I (0.000-0.034) ng/mL Total Protein (6.3-8.2) g/dL Albumin (3.5-5.0) g/dL 03/13/18 03/13/18 03/13/18 Range/Units 03:47 07:15 08:57 RBC (4.30-5.90) m/uL Hgb (13.0-17.5) gm/dL Hct (39.0-53.0) % Chloride (98-107) mmol/L Carbon Dioxide (22-30) mmol/L Glucose (74-99) mg/dL POC Glucose (mg/dL) 154 H (75-99) mg/dL Magnesium (1.6-2.3) mg/dL Troponin I 0.314 H* 0.834 H* (0.000-0.034) ng/mL Total Protein (6.3-8.2) g/dL Albumin (3.5-5.0) g/dL 03/13/18 Range/Units 11:52 RBC (4.30-5.90) m/uL Hgb (13.0-17.5) gm/dL Hct (39.0-53.0) % Chloride (98-107) mmol/L Carbon Dioxide (22-30) mmol/L Glucose (74-99) mg/dL POC Glucose (mg/dL) 192 H (75-99) mg/dL Magnesium (1.6-2.3) mg/dL Troponin I (0.000-0.034) ng/mL Total Protein (6.3-8.2) g/dL Albumin (3.5-5.0) g/dL Assessment and Plan Plan: Assessment and plan #1 symptoms of chest tightness with associated shortness of breath, suggestive of acute coronary syndrome. Troponins negative 2, EKG shows normal sinus rhythm with nonspecific ST-T wave changes in the inferior leads. Status post attempts at stenting of the proximal diagonal branch, with inability to advance the stent distally and evidence of distal dissection. #2 known history of coronary artery disease with prior stent placements, most recently patient had the RCA stented in October of this year. Echocardiogram with Doppler study performed at that time revealed an ejection fraction of 50-55 % with mild to moderate mitral regurgitation. #3 hypertension #4 hyperlipidemia Plan We will continue the patient on nitro drip at 5 mics for now. Later on we will discontinue the IV nitroglycerin drip and place Nitropaste on. Continue to monitor. DNP note has been reviewed, I agree with a documented findings and plan of care. Patient was seen and examined.
[2018-03-13 17:02] LABS: Glucose,Whole Blood 214 mg/dL (75-99)
[2018-03-13] MEDS: NITROGLYCERIN OINT 1 INCH/GM PACKET TOPICAL SCH (20:53)
[2018-03-13 21:05] LABS: Glucose,Whole Blood 253 mg/dL (75-99)
[2018-03-14] MEDS: NITROGLYCERIN OINT 1 INCH/GM PACKET TOPICAL SCH ×3 (03:46→23:12)
[2018-03-14 04:06] LABS: Anion Gap 10 mmol/L; Blood Urea Nitrogen 14 mg/dL (9-20); Calcium 8.8 mg/dL (8.4-10.2); Carbon Dioxide 25 mmol/L (22-30); Chloride 111 mmol/L (98-107); Glucose 75 mg/dL (74-99); Magnesium 1.6 mg/dL (1.6-2.3); Potassium 3.9 mmol/L (3.5-5.1); Sodium 146 mmol/L (137-145)
[2018-03-14] MEDS: MAGNESIUM SULFATE-D5W PMX 1 GM in DEXTROSE/WATER 1 100ML.BAG IVPB SCH ×2 (04:54→05:58)
[2018-03-14] MEDS: SODIUM CHLORIDE 0.9% 1,000 ML IV SCH ×2 (07:00→23:12)
[2018-03-14 07:15] LABS: Glucose,Whole Blood 121 mg/dL (75-99)
[2018-03-14] MEDS: glipiZIDE 5 MG TAB PO SCH ×2 (09:28→23:12)
[2018-03-14] MEDS: ASPIRIN 81 MG PO SCH (09:28)
[2018-03-14] MEDS: INSULIN ASPART 100 UNIT/ML 1 ML 10 ML VIAL SQ SCH ×4 (09:28→23:13)
[2018-03-14] MEDS: LISINOPRIL 10 MG TAB PO SCH (09:28)
[2018-03-14] MEDS: ACARBOSE 25 MG TAB PO SCH ×3 (09:28→17:10)
[2018-03-14] MEDS: PANTOPRAZOLE 40 MG TABLET PO SCH (09:28)
[2018-03-14] MEDS: HYDROcodone/APAP 5-325MG 1 EACH TAB PO PRN ×2 (09:33→23:15)
[2018-03-14] MEDS: ALPRAZolam 0.25 MG TAB PO SCH ×2 (09:33→23:12)
[2018-03-14] MEDS: ALPRAZolam 0.25 MG TAB PO PRN (09:33)
[2018-03-14] MEDS: PRASUGREL 10 MG TAB PO SCH (09:52)
--- NOTE | 2018-03-14 10:10 | P.PN ---
Progress Note - Text The patient is a 67-year-old gentleman with a history of coronary artery disease presented with recurrent chest pain consistent with unstable angina, acute coronary syndrome. Patient underwent angioplasty 2 days previous for a critical stenosis in the first diagonal branch of the right coronary artery. The patient has been on IV nitroglycerin drip and that has been switched to a transdermal paste. Patient at this time is relatively pain free. Denies any unusual shortness of breath or nausea and vomiting. Vital signs temperature 98.2 with a pulse of 61 although it was as low as 45 at one point. Respiratory rate of 14, blood pressure 130/62 and he is 95% saturated on room air. Patient is alert and oriented in no acute distress. Respiratory status appears stable. No neurological deficits noted. Laboratory Sodium is 146 with a potassium of 3.9. BUN is 14 with a creatinine of 0.9 for given him a GFR greater than 90. Blood sugar this morning is 121. Magnesium 1.6. Impressions and plans Patient with a presentation of unstable angina. Status post angioplasty and stenting of the first diagonal branch of the right coronary artery. Discussed with patient and staff in the ICU this morning. Pending review and recommendations from cardiology hopefully patient can be transferred to a cardiac stepdown unit and increased in activity and ambulation. Hopefully if he clinically does well then discharge could possibly be over the next 24-48 hours. The patient states he has some upcoming travel plans. I did recommend he discuss the safety of this with cardiology for their opinion. Dr. Latif public relations account supervisor for me over the weekend please call if any concerns arise.
[2018-03-14 12:14] LABS: Glucose,Whole Blood 261 mg/dL (75-99)
--- NOTE | 2018-03-14 14:19 | PN ---
PROGRESS NOTE Mr. Wright is a 67-year-old gentleman who is admitted to ICU following an angioplasty. This morning he is doing well. Chest pain has resolved. Remains in sinus rhythm and hemodynamically stable. On exam, comfortable at rest. Vital signs are stable. Chest exam reveals good air entry bilaterally. Heart exam reveals first and second heart sounds. No gallop. Abdomen is soft. Examination of the extremities did not reveal any edema. Peripheral pulses are felt. Labs show a creatinine of 0.9. Potassium is 3.9. Hemoglobin is 11.1. Patient is currently on aspirin, Tenormin, Lipitor, lisinopril, nitro paste, and insulin. ASSESSMENT: Unstable angina, status post catheterization and angioplasty. Patient is doing better. Chest pain has resolved. He is on optimal medical therapy with aspirin Tenormin, Lipitor, Zestril, nitro paste and the IV nitro had been tapered and stopped. I will transfer the patient to [facility] care. MMODL / IJN: [id number] /
[2018-03-14 17:10] LABS: Glucose,Whole Blood 252 mg/dL (75-99)
[2018-03-14] MEDS ORDERED: NITROGLYCERIN OINT 1 INCH/GM PACKET TOPICAL SCH (20:00)
[2018-03-14 20:58] LABS: Glucose,Whole Blood 169 mg/dL (75-99)
[2018-03-14] MEDS: ATENOLOL 50 MG TAB PO SCH (23:12)
[2018-03-14] MEDS: FLUTICASONE 50MCG/SPRAY NASAL 16GM EA NOSTRIL SCH (23:13)
[2018-03-14] MEDS: ATORVASTATIN 40 MG TAB PO SCH (23:13)
[2018-03-15] MEDS: NITROGLYCERIN OINT 1 INCH/GM PACKET TOPICAL SCH (04:58)
[2018-03-15 06:41] LABS: Glucose,Whole Blood 102 mg/dL (75-99)
[2018-03-15] MEDS: INSULIN ASPART 100 UNIT/ML 1 ML 10 ML VIAL SQ SCH ×4 (07:17→21:09)
[2018-03-15] MEDS: ACARBOSE 25 MG TAB PO SCH ×3 (07:17→17:13)
[2018-03-15] MEDS: SODIUM CHLORIDE 0.9% 1,000 ML IV SCH ×2 (08:38→21:05)
[2018-03-15] MEDS: ASPIRIN 81 MG PO SCH (08:46)
[2018-03-15] MEDS: PANTOPRAZOLE 40 MG TABLET PO SCH (08:46)
[2018-03-15] MEDS: LISINOPRIL 10 MG TAB PO SCH (08:46)
[2018-03-15] MEDS: glipiZIDE 5 MG TAB PO SCH ×2 (08:46→21:09)
[2018-03-15] MEDS: ALPRAZolam 0.25 MG TAB PO SCH ×2 (08:46→23:00)
[2018-03-15] MEDS: PRASUGREL 10 MG TAB PO SCH (08:47)
--- NOTE | 2018-03-15 10:04 | P.PN ---
Progress Note - Text The patient is a 67-year-old gentleman who presented initially with acute coronary syndrome/unstable angina. Patient has undergone cardiac catheterization and angioplasty and stenting of the proximal diagonal branch of the right coronary artery. Apparently there was some evidence of further distal dissection. Patient has history of previous coronary artery disease with stenting of the right coronary in October. He does have a preserved ejection fraction of 50-55%. Other risk factors include hypertension and hyperlipidemia. The patient was transferred yesterday out of the intensive care unit and has been ambulating. He does develop some shortness of breath and tightness with ambulation which is relieved with rest. He is not having any severe pain like he had on admission or during his catheterization. Patient overall is lying in bed. He is overall comfortable at this time. Vital signs reveal a temperature 97.1 with a pulse of 50 and respirations nonlabored at 18. Blood pressure 139/66 and he is 99% saturated on room air. Lung and heart examination is clear. No unusual edema. No neurological changes. Laboratory Magnesium is 1.6 with a blood sugar 102 this morning. Impressions and plans Discussed with patient and cardiac nurse this morning. Cardiology plans on adding a long-acting nitroglycerin and continuing to ambulate patient. Possibility of discharge to home this afternoon if patient clinically is stable and if okay with cardiology. Patient did have a trip planned to the [facility] this week and I recommended that he be safer that he not go on this trip and if discharge follow -up with cardiology as an outpatient. Other options including further catheterization and or consideration for surgery if clinical symptoms persist were discussed. Patient does have a brother who is 60 years old and had bypass surgery. Dr. Latif is animal control specialist for me over the weekend if any concerns or problems should arise.
--- NOTE | 2018-03-15 10:31 | P.PN ---
Subjective Mr. Wright is a pleasant 67-year-old male past medical history significant for coronary artery disease s/p recent angioplasty. He has been up and ambulating in the halls without difficulty although after he gets back to his room to sit down he feels tired with mild mid-sternal discomfort. Not described as a pain but just an odd sensation. Blood pressure 139/66 heart rate 58 afebrile maintaining oxygen saturation on room air. Laboratory data reviewed, magnesium 1.6, sodium 146, potassium 3.9, creatinine 0.94. Objective - Vital Signs Vital signs: Vital Signs Temp 97.1 F L 03/15/18 08:48 Pulse 50 L 03/15/18 08:48 Resp 18 03/15/18 08:48 BP 139/66 03/15/18 08:48 Pulse Ox 99 03/15/18 08:48 Intake & Output 03/14/18 03/15/18 03/15/18 18:59 06:59 18:59 Intake Total 985 Output Total 900 Balance 85 Weight 86.3 kg Intake: IV 625 0.9 525 Magnesium Sulfate-D5w Pmx 100 1 gm In Dextrose/Water 1 100ml.bag @ 100 mls/hr IVPB Q1H [facility] Rx#: [id number] Oral 360 Output: Urine 900 Other: Voiding Method Urinal Toilet Toilet # Voids 0 1 # Bowel Movements 0 - Exam GENERAL: Well-appearing, well-nourished and in no acute distress. NECK: Supple without JVD or thyromegaly. LUNGS: Breath sounds clear to auscultation bilaterally. Respiration equal and unlabored. No wheezes, rales or rhonchi. HEART: Regular rate and rhythm without murmurs, rubs or gallops. S1 and S2 heard. EXTREMITIES: Normal range of motion, no edema. No clubbing or cyanosis. Peripheral pulses intact and strong. - Labs CBC & Chem 7: 03/13/18 03:47 03/14/18 03:43 Labs: Abnormal Lab Results - Last 24 Hours (Table) 03/14/18 03/14/18 03/14/18 Range/Units 12:12 16:56 20:56 POC Glucose (mg/dL) 261 H 252 H 169 H (75-99) mg/dL 03/15/18 Range/Units 06:40 POC Glucose (mg/dL) 102 H (75-99) mg/dL Assessment and Plan Assessment: ASSESSMENT 1. Unstable angina status post catheterization and angioplasty. Angioplasty of the proximal diagonal branch with inability to advance a stent distally and evidence of distal dissection 2. Coronary artery disease, prior stent placements to the RCA. Preserved LV function with mild to moderate MR. 3. Hypertension 4. Dyslipidemia PLAN Add long-acting nitrate Imdur 60 mg daily. Increased activity throughout the day and continue to assess for any ongoing symptoms of chest discomfort. If he remains chest pain-free he is stable from a cardiac perspective. This has been discussed with the nursing staff as well as Dr. Sesay. Follow-up with Dr. West in one week. The above impression and plan of care have been discussed and directed by the signing physician. Juliane Jaffe, nurse practitioner, acting as scribe for signing physician.
[2018-03-15] MEDS: ISOSORBIDE MONONITRATE ER 60 MG TAB.ER.24H PO SCH (11:00)
[2018-03-15] MEDS: HYDROcodone/APAP 5-325MG 1 EACH TAB PO PRN ×2 (11:00→23:00)
[2018-03-15 11:15] LABS: Glucose,Whole Blood 191 mg/dL (75-99)
[2018-03-15 16:28] LABS: Glucose,Whole Blood 244 mg/dL (75-99)
[2018-03-15 20:55] LABS: Glucose,Whole Blood 275 mg/dL (75-99)
[2018-03-15] MEDS: ATORVASTATIN 40 MG TAB PO SCH (21:09)
[2018-03-15] MEDS: FLUTICASONE 50MCG/SPRAY NASAL 16GM EA NOSTRIL SCH (21:09)
[2018-03-15] MEDS: ATENOLOL 50 MG TAB PO SCH (21:09)
[2018-03-16 06:00] LABS: Glucose,Whole Blood 168 mg/dL (75-99)
[2018-03-16] MEDS: ACARBOSE 25 MG TAB PO SCH ×2 (06:22→12:13)
[2018-03-16] MEDS: INSULIN ASPART 100 UNIT/ML 1 ML 10 ML VIAL SQ SCH ×2 (06:22→12:13)
[2018-03-16] MEDS: SODIUM CHLORIDE 0.9% 1,000 ML IV SCH (07:35)
--- NOTE | 2018-03-16 08:28 | P.DS ---
Providers Date of admission: 03/12/18 15:26 Attending physician: Timur Cruz Consults: 03/10/18 21:15 Consult Physician Urgent Consulting Provider: Yanira Rico Consult Reason/Comments: cp Do you want consulting provider notified?: Yes 03/12/18 19:33 Consult Physician Routine Consulting Provider: [facility] Consult Reason/Comments: Post Interventional patient Do you want consulting provider notified?: Already Contacted Primary care physician: Timur Cruz The patient is a 67-year-old gentleman with a known history of coronary artery disease presented to the emergency room with the upper anterior chest pain associated with minimal exertion happening several times prior to admission. Patient describes the pain as rather severe in nature stopping him from doing anything. Patient has had previous cardiac catheterization and stenting back in October of this year. He also has numerous risk factors. Hospital course Patient was admitted and consultation obtained with cardiology. Initial troponins were unremarkable. And EKG did show some T-wave inversions in the inferior leads. Chest x-ray did not show any acute process. Echocardiogram revealed mild-moderate impaired ejection fraction of 40-45%. There was some hypokinesis of the basilar posterior and inferior castanon. Mild dilatation of the left atrium to about 30 mL. Mild aortic valve sclerosis was also noted. No evidence for pulmonary hypertension or effusion. Patient underwent stent in the proximal diagonal branch of the right coronary artery. There was some inability to advance the stent distally and there was some evidence apparently of distal dissection. Noted was flow in one of the branches of the diagonal distally though. Patient was subsequently monitored on selective care and gradually ambulated. Nitrates were also resumed along with his aspirin and Effient and beta blockers and statins. Patient ambulated well on the unit without unusual chest pain or shortness of breath and we are anticipating likely discharge by cardiology later today. Medications Acarbose 50 mg 3 times a day with meals Glipizide/Glucotrol XL 10 mg twice a day, patient will resume at home. Xanax 0.25 twice a day Aspirin 81 mg daily Atenolol 50 mg at at bedtime Lipitor 40 and thousand milligrams twice a day Resume Nexium 24 hour 22.3 mg daily Aspirin 81 mg daily Effient 10 mg daily Lisinopril/Zestril 10 mg daily Nasonex 2 sprays in each nostril at night. Hydrocodone/acetaminophen 5-325 one 3 times a day when necessary for pain. Patient on chronic pain management and monitored through the office. Imdur 60 mg daily Patient will resume his home medications as above and I will send in his prescription for Imdur to his local [facility] pharmacy through my office in EMR. Diabetic diet and activities as tolerated without any marked strenuous lifting or climbing. Discharge diagnosis 1. Unstable angina with presentation of acute coronary syndrome. Recurrent exertional chest pain. Now status post cardiac catheterization and angioplasty of the first diagonal of the right coronary artery as described by cardiology. 2. Past history of underlying coronary artery disease with previous stenting of the proximal right coronary artery back in October 2017 and previous stenting also in 2013. 3. Hypertension 4. Diabetes type 2 5. Hyperlipidemia 6. Gastroesophageal reflux 7. Nephrolithiasis 8. BPH 9. Lumbar osteoarthritis with chronic pain 10. Previous surgeries including appendectomy, cardiac stenting and previous colonoscopy in 2008. Follow-up with cardiology and myself over the next 5-7 days. Call office if any concerns or problems. Prognosis is somewhat guarded. Patient Condition at Discharge: Good Plan - Discharge Summary Discharge Rx Participant: Yes New Discharge Prescriptions: No Action glipiZIDE [Glucotrol XL] 10 mg PO BID Mometasone Furoate [Nasonex Nasal [place]] 2 spray EA NOSTRIL HS Lisinopril [Zestril] 10 mg PO DAILY Atorvastatin [Lipitor] 40 mg PO HS Atenolol [Tenormin] 50 mg PO HS Acarbose [Precose] 50 mg PO TID ALPRAZolam [Xanax] 0.25 mg PO BID Esomeprazole Magnesium [NexIUM 24Hr] 22.3 mg PO DAILY metFORMIN HCL [Glucophage] 1,000 mg PO BID Aspirin 81 mg PO DAILY #303 chew Nitroglycerin Sl Tabs [Nitrostat] 0.4 mg SUBLINGUAL Q5M PRN #25 tab PRN Reason: Chest Pain Prasugrel [Effient] 10 mg PO DAILY #30 tab HYDROcodone/APAP 5-325MG [[place] 5-325] 1 tab PO TID PRN PRN Reason: Pain Discharge Medication List ALPRAZolam [Xanax] 0.25 mg PO BID 05/31/14 [History] Acarbose [Precose] 50 mg PO TID 05/31/14 [History] Atenolol [Tenormin] 50 mg PO HS 05/31/14 [History] Atorvastatin [Lipitor] 40 mg PO HS 05/31/14 [History] Lisinopril [Zestril] 10 mg PO DAILY 05/31/14 [History] Mometasone Furoate [Nasonex Nasal [place]] 2 spray EA NOSTRIL HS 05/31/14 [History ] glipiZIDE [Glucotrol XL] 10 mg PO BID 05/31/14 [History] Esomeprazole Magnesium [NexIUM 24Hr] 22.3 mg PO DAILY 10/27/16 [History] metFORMIN HCL [Glucophage] 1,000 mg PO BID 10/25/17 [History] Aspirin 81 mg PO DAILY #303 chew 10/28/17 [Rx] Nitroglycerin Sl Tabs [Nitrostat] 0.4 mg SUBLINGUAL Q5M PRN #25 tab 10/28/17 [Rx ] Prasugrel [Effient] 10 mg PO DAILY #30 tab 10/28/17 [Rx] HYDROcodone/APAP 5-325MG [[place] 5-325] 1 tab PO TID PRN 03/10/18 [History] Follow up Appointment(s)/Referral(s): Timur Cruz MD [Primary Care Provider] - 1-2 days Kevon West MD [STAFF PHYSICIAN] - 03/20/18 3:30 pm (Friday) Patient Instructions/Handouts: Chest Pain (ED)
[2018-03-16] MEDS: ASPIRIN 81 MG PO SCH (08:39)
[2018-03-16] MEDS: ISOSORBIDE MONONITRATE ER 60 MG TAB.ER.24H PO SCH (08:39)
[2018-03-16] MEDS: ALPRAZolam 0.25 MG TAB PO SCH (08:40)
[2018-03-16] MEDS: glipiZIDE 5 MG TAB PO SCH (08:40)
[2018-03-16] MEDS: PRASUGREL 10 MG TAB PO SCH (08:40)
[2018-03-16] MEDS: LISINOPRIL 10 MG TAB PO SCH (08:40)
[2018-03-16] MEDS: PANTOPRAZOLE 40 MG TABLET PO SCH (08:40)
[2018-03-16 08:43] VITALS: RESP 18
--- NOTE | 2018-03-16 09:36 | P.PN ---
Subjective Principal diagnosis: Patient is walking in the hallways comfortably without any chest discomfort No shortness of breath on exertion No angina like symptoms Patient underwent coronary angiography and stent placement. Stent placement was not possible on account of distal dissection, stent could not be deployed. He is on medical treatment at this time. Heart sounds S1 and S2 are normal no murmurs no gallop or rub Breath sounds are clear no rhonchi no crackles Abdomen soft nontender Groin is healed well that is no hematoma Vitals are stable blood pressure 121/80 400 limit his mercury pulse rate in the 50s, temperature 98.1F Afebrile Impression CAD Status post attempted stenting Inability to deployed stent due to technical considerations Suggest Medical management. If patient is stable today he may go home later on this evening and follow Dr. West within one week Dual antiplatelet therapy to continue Objective - Vital Signs Vital signs: Vital Signs Temp 98.1 F 03/16/18 08:42 Pulse 62 03/16/18 08:42 Resp 18 03/16/18 08:42 BP 121/84 03/16/18 08:42 Pulse Ox 98 03/16/18 08:42 Intake & Output 03/15/18 03/16/18 03/16/18 18:59 06:59 18:59 Weight 85.9 kg Other: Voiding Method Toilet Toilet Toilet # Voids 1 - Labs CBC & Chem 7: 03/13/18 03:47 03/14/18 03:43 Labs: Abnormal Lab Results - Last 24 Hours (Table) 03/15/18 03/15/18 03/15/18 Range/Units 11:13 16:21 20:53 POC Glucose (mg/dL) 191 H 244 H 275 H (75-99) mg/dL 03/16/18 Range/Units 05:59 POC Glucose (mg/dL) 168 H (75-99) mg/dL
[2018-03-16] MEDS: HYDROcodone/APAP 5-325MG 1 EACH TAB PO PRN (09:57)
[2018-03-16 11:09] LABS: Glucose,Whole Blood 170 mg/dL (75-99)
[2018-03-16 12:01] VITALS: BP 124/59; PULSE 51; TEMP 97.2
--- NOTE | 2018-03-17 13:05 | CDI ---
Last Revision, September 2017 Documentation Clarification Form Date: 03/17/18 From: Elva Anshu Michelle Castro, Product Marketing Manager Hours-8:30 am & 5 pm Pradip Admit Date: 03/12/2018 3:26:00 PM Patient Name: Oscar Wright Visit Number: [id number] Discharge Date: 03/16/18 ATTENTION: The Clinical Documentation Specialists (CDI) and [facility] Coding Staff appreciate your assistance in clarifying documentation. Please respond to the clarification below the line at the bottom and electronically sign. The CDI & [facility] Coding staff will review the response and follow-up if needed. Please note: Queries are made part of the Legal Health Record. If you have any questions, please contact the author of this message via ITS. Dr. Timur Cruz Documentation states: low magnesium History/Risk Factors: CAD w [place], GERD, HTN Clinical indicators: Abnormal M.3, 1.5 x 4, 1.6 x 2 Treatment: Magnesium Sulfate-D5w Clinical significance of diagnostic testing and treatment CANNOT be assumed or coded without physician documentation of significance if any. Please clarify what abnormal laboratory signifies: Hypomagesium Abnormal Lab Value Unable to determine Other, please specify Please continue to document in your progress notes and discharge summary in order to capture severity of illness and risk of mortality. Include clinical findings that support your diagnosis. patient had and was treated for hypomagesium RD. MTDD
== END 2018-03-16 12:21 | disposition home or self-care (01) | DRG 248 ==
LOC: EC 18:58 → 6SEL 21:16 → OBSVTOIN 03-12 15:26 → 6ICU 03-12 19:30 → 6SEL 03-14 15:42
PROVIDERS: ADMIT Internal Medicine; ATTEND Internal Medicine
PROC: 4A023N7 Measurement of Cardiac Sampling and Pressure, Left Heart, Percutaneous Approach (ICD-10-PCS; 2018-03-12)
PROC: B211YZZ Fluoroscopy of Multiple Coronary Arteries using Other Contrast (ICD-10-PCS; 2018-03-12)
PROC: 02703DZ Dilation of Coronary Artery, One Artery with Intraluminal Device, Percutaneous Approach (ICD-10-PCS; principal; 2018-03-12 13:47)
DX: I25.110 Atherosclerotic heart disease of native coronary artery with unstable angina pectoris (principal); I25.42 Coronary artery dissection; T82.898A Other specified complication of vascular prosthetic devices, implants and grafts, initial encounter; E83.42 Hypomagnesemia; K21.9 Gastro-esophageal reflux disease without esophagitis; I08.0 Rheumatic disorders of both mitral and aortic valves; I10 Essential (primary) hypertension; I25.2 Old myocardial infarction; N40.0 Benign prostatic hyperplasia without lower urinary tract symptoms; F41.9 Anxiety disorder, unspecified; G89.29 Other chronic pain; M47.816 Spondylosis without myelopathy or radiculopathy, lumbar region; E11.9 Type 2 diabetes mellitus without complications; E78.5 Hyperlipidemia, unspecified; L98.9 Disorder of the skin and subcutaneous tissue, unspecified; Z79.84 Long term (current) use of oral hypoglycemic drugs; Z79.82 Long term (current) use of aspirin; Z79.02 Long term (current) use of antithrombotics/antiplatelets; Z79.51 Long term (current) use of inhaled steroids; Z79.899 Other long term (current) drug therapy; Z95.5 Presence of coronary angioplasty implant and graft; Z87.442 Personal history of urinary calculi; Z90.49 Acquired absence of other specified parts of digestive tract; Z85.51 Personal history of malignant neoplasm of bladder; Z80.8 Family history of malignant neoplasm of other organs or systems; Z82.49 Family history of ischemic heart disease and other diseases of the circulatory system; Z83.49 Family history of other endocrine, nutritional and metabolic diseases; Z83.3 Family history of diabetes mellitus; Z81.8 Family history of other mental and behavioral disorders; Z83.6 Family history of other diseases of the respiratory system; Y84.0 Cardiac catheterization as the cause of abnormal reaction of the patient, or of later complication, without mention of misadventure at the time of the procedure; Y92.234 Operating room of hospital as the place of occurrence of the external cause
CPT/HCPCS: 36415; 71046; 80048; 80053; 80061; 82550; 82553; 83036; 83690; 83735; 83880; 84100; 84484; 85025; 85049; 85610; 85730; 92928; 93005; 93306; 93458; 96365; 96375; 99291

== ENCOUNTER 2018-03-23 07:10 | Emergency (ER) | payer MEDICARE, BC ==
[2018-03-23] MEDS ORDERED: ONDANSETRON 4 MG/2 ML VIAL IVP STA ×2 (08:11→09:10)
[2018-03-23] MEDS ORDERED: HYDROmorphone 0.5 MG/0.5 ML SYRINGE IVP STA ×2 (08:11→09:10)
[2018-03-23 08:12] LABS: Basophils # (A) 0.1 k/uL (0-0.2); Basophils % (A) 1 %; Eosinophils # (A) 0.4 k/uL (0-0.7); Eosinophils % (A) 4 %; HCT 34.5 % (39.0-53.0); HGB 11.6 gm/dL (13.0-17.5); Lymphocytes # (A) 1.2 k/uL (1.0-4.8); Lymphocytes % (A) 12 %; MCH 30.7 pg (25.0-35.0); MCHC 33.6 g/dL (31.0-37.0); MCV 91.3 fL (80.0-100.0); Monocytes # (A) 0.5 k/uL (0-1.0); Monocytes % (A) 5 %; Neutrophils % (A) 78 %; Platelet Count 240 k/uL (150-450); RBC 3.78 m/uL (4.30-5.90); RDW 13.7 % (11.5-15.5); WBC 10.3 k/uL (3.8-10.6)
[2018-03-23] MEDS ORDERED: KETOROLAC 30 MG/ML 1 ML VIAL IVP STA (08:12)
[2018-03-23] MEDS ORDERED: SODIUM CHLORIDE 0.9% 1,000 ML IV ONE (08:13)
[2018-03-23 08:28] LABS: Albumin 4.2 g/dL (3.5-5.0); Calcium 9.3 mg/dL (8.4-10.2); Potassium 4.6 mmol/L (3.5-5.1); Total Bilirubin 0.4 mg/dL (0.2-1.3); Total Protein 6.6 g/dL (6.3-8.2)
[2018-03-23 08:30] LABS: Appearance,Urine Cloudy (Clear); Bilirubin,Urine Negative (Negative); Blood,Urine Large (Negative); Budding Yeast,Urine Occasional /hpf; Color,Urine Yellow; Glucose,Urine (UA) 4+ (Negative); Ketones,Urine Negative (Negative); Leukocyte Esterase,Urine Negative (Negative); Mucus,Urine Rare /hpf; Nitrite,Urine Negative (Negative); PH, Urine 5.5 (5.0-8.0); Protein,Urine Trace (Negative); RBC,Urine >182 /hpf (0-5); Specific Gravity,Urine 1.021 (1.001-1.035); Urobilinogen,Urine <2.0 mg/dL (<2.0); WBC,Urine 2 /hpf (0-5)
[2018-03-23] MEDS ORDERED: SODIUM CHLORIDE 0.9% 1,000 ML IV SCH (08:30)
--- NOTE | 2018-03-23 08:30 | ED ---
General Adult HPI - General Chief complaint: Abdominal Pain Stated complaint: Kidney Stone Time Seen by Provider: 03/23/18 08:14 Source: patient, RN notes reviewed Mode of arrival: ambulatory Limitations: no limitations - History of Present Illness Initial comments: Patient 67-year-old male significant past medical history for kidney stones, presented to the emergency room today with a chief complaint of right-sided flank pain that started tonight. Patient does admit that he's had some nausea and some vomiting and pain in the right flank. States his symptoms are consistent with kidney stones that is had in the past. Patient denies any other complaints or symptoms currently. Patient denies any recent fever, chills , shortness of breath, chest pain, numbness or tingling, dysuria or hematuria, constipation or diarrhea, headaches or visual changes, or any other complaints. - Related Data Home Medications Medication Instructions Recorded Confirmed ALPRAZolam [Xanax] 0.25 mg PO TID PRN 05/31/14 03/23/18 Acarbose [Precose] 50 mg PO TID 05/31/14 03/23/18 Atenolol [Tenormin] 50 mg PO DAILY 05/31/14 03/23/18 Atorvastatin [Lipitor] 40 mg PO HS 05/31/14 03/23/18 Lisinopril [Zestril] 10 mg PO DAILY 05/31/14 03/23/18 Mometasone Furoate [Nasonex Nasal 2 spray EA NOSTRIL HS 05/31/14 03/23/18 [place]] glipiZIDE [Glucotrol XL] 10 mg PO BID 05/31/14 03/23/18 Esomeprazole Magnesium [NexIUM 22.3 mg PO DAILY 10/27/16 03/23/18 24Hr] metFORMIN HCL [Glucophage] 1,000 mg PO BID 10/25/17 03/23/18 Aspirin EC [Ecotrin Low Dose] 81 mg PO DAILY 03/23/18 03/23/18 HYDROcodone/APAP 7.5-325MG [[place] 1 tab PO TID PRN 03/23/18 03/23/18 7.5-325] Tamsulosin HCl [Flomax] 0.8 mg PO DAILY 03/23/18 03/23/18 Previous Rx's Medication Instructions Recorded Nitroglycerin Sl Tabs [Nitrostat] 0.4 mg SUBLINGUAL Q5M PRN #25 tab 10/28/17 Prasugrel [Effient] 10 mg PO DAILY #30 tab 10/28/17 Isosorbide Mononitrate ER [Imdur] 60 mg PO DAILY #30 tab 03/16/18 Ondansetron Odt [Zofran ODT] 4 mg PO Q8HR PRN #20 tab 03/23/18 Allergies Allergy/AdvReac Type Severity Reaction Status Date / Time No Known Allergies Allergy Verified 03/23/18 08:39 Review of Systems ROS Statement: Those systems with pertinent positive or pertinent negative responses have been documented in the HPI. ROS Other: All systems not noted in ROS Statement are negative. Past Medical History Past Medical History: Coronary Artery Disease (CAD), Cancer, Chest Pain / Angina , Diabetes Mellitus, GERD/Reflux, Hyperlipidemia, Hypertension, Myocardial Infarction ([place]), Osteoarthritis (OA), Prostate Disorder, Skin Disorder Additional Past Medical History / Comment(s): Hx. KIDNEY STONES, occasional SOB recently, diff swallowing-feels like in throat, diarrhea, dry skin, hx bladder cancer Last Myocardial Infarction Date:: 2004 History of Any Multi-Drug Resistant Organisms: None Reported Past Surgical History: Appendectomy, Back Surgery, Ear Surgery, Heart Catheterization, Heart Catheterization With Stent, Orthopedic Surgery Additional Past Surgical History / Comment(s): METAL SCREWS IN BACK, RIGHT EAR TUBE/now gone, EPIDURAL PAIN SHOTS, previous stents 2004,2005, LITHOTRIPSY, rt shoulder rotator cuff Past Anesthesia/Blood Transfusion Reactions: No Reported Reaction Date of Last Stent Placement:: 05/2014 Past Psychological History: Anxiety Smoking Status: Never smoker Past Alcohol Use History: Rare Past Drug Use History: None Reported - Past Family History Father Family Medical History: Cancer Additional Family Medical History / Comment(s): BRAIN Mother Family Medical History: Chest Pain / Angina, Coronary Artery Disease (CAD), Dementia, Diabetes Mellitus, Hyperlipidemia, Hypertension, Respiratory Disorder Additional Family Medical History / Comment(s): CABGx4 (No [place]), ruptured colon General Exam - General Exam Comments Initial Comments: General: The patient is awake and alert, in mild discomfort. Eye: Pupils are equal, round and reactive to light, extra-ocular movements are intact. No nystagmus. There is normal conjunctiva bilaterally. No signs of icterus. Ears, nose, mouth and throat: There are moist mucous membranes and no oral lesions. Neck: The neck is supple, there is no tenderness or JVD. Cardiovascular: There is a regular rate and rhythm. No murmur, rub or gallop is appreciated. Respiratory: Lungs are clear to auscultation, respirations are non-labored, breath sounds are equal. No wheezes, stridor, rales, or rhonchi. Gastrointestinal: Soft, non-distended, non-tender abdomen without masses or organomegaly noted. There is no rebound or guarding present. Mild tenderness right flank. Musculoskeletal: Normal ROM, no tenderness. Strength 5/5. Sensation intact. Pulses equal bilaterally 2+. Neurological: A&O x 3. CN II-XII intact, There are no obvious motor or sensory deficits. Coordination appears grossly intact. Speech is normal. Skin: Skin is warm and dry and no rashes or lesions are noted. Psychiatric: Cooperative, appropriate mood & affect, normal judgment. Limitations: no limitations Course Vital Signs 03/23/18 03/23/18 07:15 09:14 Temperature 97.8 F 99.1 F Pulse Rate 62 68 Respiratory 20 18 Rate Blood Pressure 171/75 179/77 O2 Sat by Pulse 98 96 Oximetry Medical Decision Making - Medical Decision Making Patient reexamined at this time shows no signs of distress. His labs been reviewed urinalysis does show large amount of blood consistent with kidney stone. States he's had multiple stones in the past and this feels the same. States it is nothing different about his pain today. Patient did have a CAT scan back in October of this year showing renal stones at that time. Results were discussed with the patient. He states feels comfortable being discharged he has been pain medicine of [place] and also Flomax at home that he can use. Patient given a prescription for nausea medication use if needed. Is advised to follow-up urologist/family doctor return if any symptoms increase or worsen or for new concerns. - Lab Data Result diagrams: 03/23/18 07:40 03/23/18 07:40 Lab Results 03/23/18 03/23/18 03/23/18 Range/Units 07:40 07:40 07:40 WBC 10.3 (3.8-10.6) k/uL RBC 3.78 L (4.30-5.90) m/uL Hgb 11.6 L (13.0-17.5) gm/dL Hct 34.5 L (39.0-53.0) % MCV 91.3 (80.0-100.0) fL MCH 30.7 (25.0-35.0) pg MCHC 33.6 (31.0-37.0) g/dL RDW 13.7 (11.5-15.5) % Plt Count 240 (150-450) k/uL Neutrophils % 78 % Lymphocytes % 12 % Monocytes % 5 % Eosinophils % 4 % Basophils % 1 % Neutrophils # 8.0 H (1.3-7.7) k/uL Lymphocytes # 1.2 (1.0-4.8) k/uL Monocytes # 0.5 (0-1.0) k/uL Eosinophils # 0.4 (0-0.7) k/uL Basophils # 0.1 (0-0.2) k/uL Sodium 144 (137-145) mmol/L Potassium 4.6 (3.5-5.1) mmol/L Chloride 108 H (98-107) mmol/L Carbon Dioxide 23 (22-30) mmol/L Anion Gap 13 mmol/L BUN 13 (9-20) mg/dL Creatinine 1.14 (0.66-1.25) mg/dL Est GFR (CKD-EPI)AfAm 77 (>60 ml/min/1.73 sqM) Est GFR (CKD-EPI)NonAf 67 (>60 ml/min/1.73 sqM) Glucose 360 H (74-99) mg/dL Calcium 9.3 (8.4-10.2) mg/dL Total Bilirubin 0.4 (0.2-1.3) mg/dL AST 24 (17-59) U/L ALT 40 (21-72) U/L Alkaline Phosphatase 74 (38-126) U/L Total Protein 6.6 (6.3-8.2) g/dL Albumin 4.2 (3.5-5.0) g/dL Amylase 89 (30-110) U/L Lipase 230 (23-300) U/L Urine Color Yellow Urine Appearance Cloudy (Clear) Urine pH 5.5 (5.0-8.0) Ur Specific [place] 1.021 (1.001-1.035) Urine Protein Trace H (Negative) Urine Glucose (UA) 4+ H (Negative) Urine Ketones Negative (Negative) Urine Blood Large H (Negative) Urine Nitrite Negative (Negative) Urine Bilirubin Negative (Negative) Urine Urobilinogen <2.0 (<2.0) mg/dL Ur Leukocyte Esterase Negative (Negative) Urine RBC >182 H (0-5) /hpf Urine WBC 2 (0-5) /hpf Urine Mucus Rare H (None) /hpf Urine Yeast (Budding) Occasional H (None) /hpf Disposition Clinical Impression: Kidney stone Disposition: HOME SELF-CARE Condition: Good Instructions: Kidney Stones (ED) Additional Instructions: Please follow-up the family doctor and urologist over the next 2 days. Please return to emergency room symptoms increase or worsen or for any other concerns. Prescriptions: Ondansetron Odt [Zofran ODT] 4 mg PO Q8HR PRN #20 tab PRN Reason: Nausea Is patient prescribed a controlled substance at d/c from ED?: No Referrals: Timur Cruz MD [Primary Care Provider] - 1-2 days Time of Disposition: 09:46
--- NOTE | 2018-03-23 08:42 | XR ---
EXAMINATION TYPE: XR KUB DATE OF EXAM: 03/23/2018 8:32 AM CLINICAL HISTORY: Right lower quadrant pain radiating to stomach. TECHNIQUE: Two Upright KUB images of the abdomen are obtained. COMPARISON: CT abdomen and pelvis October 26, 2017. Abdominal x-ray October 25, 2017 FINDINGS: Scattered gas is seen in non-distended small bowel loops. Gas and fecal material is seen in non-distended colon. Elevated right hemidiaphragm is redemonstrated. Postsurgical changes lower lumb ar spine is again seen. Left-sided nephrolithiasis is redemonstrated. Right-sided nephrolithiasis is less well-seen but likely present. No pneumoperitoneum is present. Lung bases are clear. IMPRESSION: Overall nonobstructive bowel gas pattern. Bilateral nephrolithiasis noted.
[2018-03-23 09:18] VITALS: RESP 18
[2018-03-23 09:57] VITALS: BP 160/74; PULSE 88; TEMP 99.4
== END 2018-03-23 09:56 | disposition home or self-care (01) ==
LOC: EC 07:10
DX: N20.0 Calculus of kidney (principal); I25.10 Atherosclerotic heart disease of native coronary artery without angina pectoris; E11.9 Type 2 diabetes mellitus without complications; K21.9 Gastro-esophageal reflux disease without esophagitis; E78.5 Hyperlipidemia, unspecified; I10 Essential (primary) hypertension; I25.2 Old myocardial infarction; Z90.49 Acquired absence of other specified parts of digestive tract; Z95.5 Presence of coronary angioplasty implant and graft; Z95.818 Presence of other cardiac implants and grafts; Z87.438 Personal history of other diseases of male genital organs; Z79.51 Long term (current) use of inhaled steroids; Z79.82 Long term (current) use of aspirin; Z79.84 Long term (current) use of oral hypoglycemic drugs; Z79.899 Other long term (current) drug therapy
CPT/HCPCS: 36415; 80053; 82150; 83690; 85025; 81001; 87086; 74018; 99285; 96374; 96375 ×2; 96376 ×2; 96361 ×2; J2405; J1885; J1170

== ENCOUNTER 2018-09-15 09:04 | Day surgery (SDC) | payer MEDICARE, BC ==
[2018-09-11 11:36] VITALS: BMI 27.3
[~2018-09-15 09:04] MED LIST changes: +ALPRAZolam 0.25 MG TAB PO PRN; +ALPRAZolam 0.5 MG TAB PO PRN; +ASPIRIN 325 MG TAB PO STA; +ATORVASTATIN 80 MG TAB PO STA; -LACTATED RINGERS 1,000 ML IV SCH; +NITROGLYCERIN SL TABS 0.4 MG TAB SUBLINGUAL PRN; +SODIUM CHLORIDE 0.9% 1,000 ML in EMPTY BAG 1 BAG IV ONE
[2018-09-15] MEDS ORDERED: SODIUM CHLORIDE 0.9% 1,000 ML IV ONE (10:52)
[2018-09-15 10:54] LABS: Basophils # (A) 0.1 k/uL (0-0.2); Basophils % (A) 1 %; Eosinophils # (A) 0.4 k/uL (0-0.7); Eosinophils % (A) 6 %; HCT 41.7 % (39.0-53.0); HGB 13.4 gm/dL (13.0-17.5); Lymphocytes # (A) 1.9 k/uL (1.0-4.8); Lymphocytes % (A) 27 %; MCH 29.4 pg (25.0-35.0); MCHC 32.1 g/dL (31.0-37.0); MCV 91.5 fL (80.0-100.0); Mean Platelet Volume 7.4; Monocytes # (A) 0.4 k/uL (0-1.0); Monocytes % (A) 6 %; Neutrophils # (A) 4.1 k/uL (1.3-7.7); Neutrophils % (A) 59 %; Platelet Count 215 k/uL (150-450); RBC 4.56 m/uL (4.30-5.90); RDW 14.4 % (11.5-15.5)
[2018-09-15 10:54] LABS: Glucose,Whole Blood 184 mg/dL (75-99)
[2018-09-15 10:55] VITALS: PULSE 59; TEMP 97.6
[2018-09-15 11:04] LABS: Anion Gap 10 mmol/L; Blood Urea Nitrogen 11 mg/dL (9-20); Carbon Dioxide 26 mmol/L (22-30); Chloride 108 mmol/L (98-107); Glucose 180 mg/dL (74-99); Potassium 3.9 mmol/L (3.5-5.1); Sodium 144 mmol/L (137-145)
[2018-09-15] MEDS ORDERED: LIDOCAINE 1% INJ 10MG/ML (20 ML MDV) ONE (11:31)
[2018-09-15] MEDS ORDERED: fentaNYL (PF) 50 MCG/ML 2 ML AMP IV ONE (12:10)
[2018-09-15] MEDS ORDERED: MIDAZOLAM 2 MG/2 ML VIAL IV ONE (12:10)
[2018-09-15] MEDS ORDERED: fentaNYL (PF) 50 MCG/ML 2 ML AMP ONE (12:10)
[2018-09-15] MEDS ORDERED: LIDOCAINE 1% INJ 10MG/ML (20 ML MDV) SQ ONE (12:13)
[2018-09-15] MEDS ORDERED: hydrALAZINE HCL 20 MG/ML 1 ML VIAL ONE (12:29)
[2018-09-15] MEDS ORDERED: hydrALAZINE HCL 20 MG/ML 1 ML VIAL IV ONE (12:30)
[2018-09-15] MEDS ORDERED: IOPAMIDOL-370 125ML BTL INJ ONE (12:42)
[2018-09-15] MEDS ORDERED: SODIUM CHLORIDE 0.9% 1,000 ML IV SCH (12:45)
[2018-09-15] MEDS ORDERED: RX INFO: IV CONTRAST WAS GIVEN 1 EACH MISC MISCELLANE PRN (12:45)
[2018-09-15 14:57] VITALS: RESP 20
[2018-09-15] MEDS ORDERED: ACETAMINOPHEN TAB 325 MG TAB ONE (16:46)
[2018-09-15 17:23] VITALS: BP 164/75
--- NOTE | 2018-09-17 17:56 | P.CARDCATH ---
Date of Procedure: 09/15/18 Preoperative Diagnosis: Crescendo angina Postoperative Diagnosis: Stable coronary artery disease Procedure(s) Performed: Left heart catheterization without left ventriculography Description of Procedure: HISTORY: This is a 67-year-old gentleman with history of ischemic heart disease with multiple stent placement. Patient came to the office with increasing chest pains with minimal exertional activities. Patient is advised to have a cardiac catheterization for definitive diagnosis. CONSENT:I have discussed the risks, benefits and alternative therapies for the above-mentioned procedure and for both sedation/analgesia as well as necessary blood product administration, if indicated, as they pertain to this patient. The patient has indicated understanding and acceptance of the risks and procedures discussed. [] PROCEDURE: Patient was brought to the lab in a fasting state. Patient was given some IV sedation. The right groin is infiltrated with lidocaine and right femoral artery was entered using Seldinger technique. A 6[place] catheter was left in place and selective coronary arteriography and left ventriculography was performed. Patient tolerated the procedure well. Femoral angiogram was performed and Angio-Seal was applied for hemostasis. No immediate complications were noted and patient was transferred to [facility] in a stable condition Conscious Sedation: Versed 1 mg Fentanyl 25 g Duration 26 minutes HEMODYNAMICS: The aortic pressure is about 110/70. Left ankle end-diastolic pressure is about 20-25. There was no gradient across the aortic valve SELECTIVE CORONARY ARTERIOGRAPHY: LEFT MAIN: Normal length with mild distal disease THE LEFT ANTERIOR DESCENDING CORONARY ARTERY:. This is a good caliber vessel giving rise to good-sized diagonal branch. The diagonal branch has an area of haziness at the site of previous intervention. No significant stenosis noted and there appears to be ANDRE-3 flow THE LEFT CIRCUMFLEX AND IS CORONARY ARTERY: This is a fair caliber vessel giving rise to good-sized OM branch. The circumflex and is coronary artery and branches are free of occlusive disease THE RIGHT CORONARY ARTERY:. The right coronary artery has multiple stents occluding in the ostium. This could not be engaged very well. However, there appears to be complete patency of the stents including the ostium. . Films are reviewed with the Dr. Rico concerning possible stenosis of the ostium. He felt that is a no significant stenosis. Rest of the vessel is free of occlusive disease LEFT VENTRICULOGRAPHY:. Not performed FINAL IMPRESSION:, Stable coronary artery disease with patent stent in the RCA. With stable lesion in the diagonal without any significant restriction to flow PLAN: Maximum medical therapy and this factor modification PROGNOSIS: Fair
== END 2018-09-15 17:51 | disposition home or self-care (01) ==
LOC: CATHCVL 09:04
PROVIDERS: ATTEND Internal Medicine Cardiovascular Disease
DX: I25.110 Atherosclerotic heart disease of native coronary artery with unstable angina pectoris (principal); E78.5 Hyperlipidemia, unspecified; I10 Essential (primary) hypertension; E78.00 Pure hypercholesterolemia, unspecified; F41.9 Anxiety disorder, unspecified; I25.2 Old myocardial infarction; G45.9 Transient cerebral ischemic attack, unspecified; E11.51 Type 2 diabetes mellitus with diabetic peripheral angiopathy without gangrene; Z95.5 Presence of coronary angioplasty implant and graft; Z79.84 Long term (current) use of oral hypoglycemic drugs; Z79.899 Other long term (current) drug therapy; Z79.82 Long term (current) use of aspirin; Z79.02 Long term (current) use of antithrombotics/antiplatelets
CPT/HCPCS: 93458; 80048; 85025; C1760; C1894; C1769; J2250; J0360; J2001; J3010; Q9967

== ENCOUNTER → 2019-01-12 | Outpatient (CLI) | payer MEDICARE, BC ==
[2019-01-12 16:41] LABS: Albumin 4.7 g/dL (3.80-4.90); Albumin/Globulin Ratio 2.14 (1.60-3.17); Anion Gap 8.8 mmol/L (4.00-12.00); Calcium 9.9 mg/dL (8.7-10.3); Carbon Dioxide 23.2 mmol/L (21.6-31.8); Globulin 2.2 g/dL (1.6-3.3); LDL Cholesterol,Calculated 53.2 mg/dL (0.0-131.0); Potassium 4.4 mmol/L (3.5-5.5); Total Bilirubin 0.7 mg/dL (0.3-1.2); Total Protein 6.9 g/dL (6.2-8.2); VLDL Calculation 57.8 mg/dL (5.00-40.00)
[2019-01-12 18:21] LABS: Hemoglobin A1C 7.7 % (4.0-6.0)
== END ==
LOC: LABWHC1 10:19
PROVIDERS: ATTEND Internal Medicine Endocrinology, Diabetes & Metabolism
DX: E11.65 Type 2 diabetes mellitus with hyperglycemia (principal)
CPT/HCPCS: 36415; 80053; 80061; 83036; 84443

== ENCOUNTER 2019-03-18 07:13 | Day surgery (SDC) | payer MEDICARE, BC ==
[2019-03-12 15:13] VITALS: BMI 28.5
[~2019-03-18 07:13] MED LIST changes: -ALPRAZolam 0.25 MG TAB PO PRN; -ALPRAZolam 0.5 MG TAB PO PRN; -ASPIRIN 325 MG TAB PO STA; -ATORVASTATIN 80 MG TAB PO STA; +LACTATED RINGERS 1,000 ML IV SCH; -NITROGLYCERIN SL TABS 0.4 MG TAB SUBLINGUAL PRN; -SODIUM CHLORIDE 0.9% 1,000 ML in EMPTY BAG 1 BAG IV ONE
[2019-03-18 07:37] VITALS: RESP 16; TEMP 98
[2019-03-18] MEDS ORDERED: LIDOCAINE 1% 20 ML VIAL (10MG/ML) FOR IV START INTRADERMA ONE (07:46)
[2019-03-18 07:48] LABS: Glucose,Whole Blood 88 mg/dL (75-99)
[2019-03-18] MEDS ORDERED: LIDOCAINE 1% INJ 10MG/ML (20 ML MDV) ONE (08:54)
[2019-03-18] MEDS ORDERED: PROPOFOL 10 MG/ML 20 ML VIAL IV ONE (08:54)
[2019-03-18 09:35] VITALS: BP 115/54; PULSE 51
--- NOTE | 2019-03-18 10:01 | P.PCN ---
Date of Procedure: 03/18/19 Procedure(s) Performed: Procedure: Colonoscopy and biopsy. Preoperative diagnosis: History of polyps. Postoperative diagnosis: Mild sigmoid diverticulosis with no evidence of acute diverticulitis, strictures, polyps or cancer. Preparation: HalfLytely prep. Sedation: Was provided by anesthesia. Brief clinical history: The patient is a 68-year-old male with history of polyps who is scheduled for this evaluation for screening for neoplasia. In addition, he indicated to me today, that he has intermittent diarrhea. No bleeding or other alarm symptoms of extraintestinal manifestations of inflammatory bowel disease. His last colonoscopy was about 6 years ago. Procedure: With the patient on his left lateral decubitus position and after informed consent and adequate sedation, the perianal area was inspected and it did not show any fissures or fistula. There were no masses felt on digital rectal exam. The Olympus CFH 190 video colonoscope was then inserted in the rectum in the usual fashion and advanced to the cecum. There was occasional diverticular orifices scattered in the sigmoid but no evidence of acute diverticulitis or strictures. The mucosa appeared healthy. No polyps or tumors were seen. I obtained biopsies from the right colon and I retroflexed the endoscope in the rectum before the endoscope was withdrawn. The patient tolerated the procedure well. Plan: The patient was reassured. Will await biopsy results. Discussed dietary measures. I recommended repeat exam in 5 years. He will follow up with you as planned.
== END 2019-03-18 10:26 | disposition home or self-care (01) ==
LOC: ORWHC2ENDO 07:13
DX: Z12.11 Encounter for screening for malignant neoplasm of colon (principal); Z86.010 Personal history of colon polyps; K57.30 Diverticulosis of large intestine without perforation or abscess without bleeding; R19.7 Diarrhea, unspecified; I10 Essential (primary) hypertension; E78.5 Hyperlipidemia, unspecified; I25.10 Atherosclerotic heart disease of native coronary artery without angina pectoris; Z95.5 Presence of coronary angioplasty implant and graft; I25.2 Old myocardial infarction; E11.9 Type 2 diabetes mellitus without complications; K21.9 Gastro-esophageal reflux disease without esophagitis; F41.9 Anxiety disorder, unspecified; N40.0 Benign prostatic hyperplasia without lower urinary tract symptoms; Z79.02 Long term (current) use of antithrombotics/antiplatelets; Z79.84 Long term (current) use of oral hypoglycemic drugs; Z79.891 Long term (current) use of opiate analgesic; Z79.899 Other long term (current) drug therapy
CPT/HCPCS: 45380; 88305; J2001; J2704

== ENCOUNTER 2019-12-05 18:51 | Inpatient (IN) | payer MEDICARE, BC ==
[2019-12-05] MEDS ORDERED: NITROGLYCERIN SL TABS 0.4 MG TAB SUBLINGUAL STA (19:02)
[2019-12-05] MEDS ORDERED: ASPIRIN 81 MG PO STA (19:02)
--- NOTE | 2019-12-05 19:04 | ED ---
General Adult HPI - General Chief complaint: Chest Pain Stated complaint: chest tightness Time Seen by Provider: 12/05/19 18:57 Source: patient, family, RN notes reviewed Mode of arrival: wheelchair Limitations: no limitations - History of Present Illness Initial comments: Patient is a pleasant 6 he 9-year-old male presenting to the emergency Department with complaints of chest discomfort. Patient has had some symptoms for the past 2-3 days however more severe today. Discomfort is currently 6 or 8/10. Discomfort feels like tightness or 8 years and there is some radiation to act her left arm. Patient does have some mild associated dyspnea and nausea. No diaphoresis. Patient does have history of previous heart attack with some similarities however does not feel exactly the same. No leg pain or leg swelling. Symptoms do worsen with exertion. - Related Data Home Medications Medication Instructions Recorded Confirmed ALPRAZolam [Xanax] 0.25 mg PO TID PRN 05/31/14 03/18/19 Acarbose [Precose] 50 mg PO TID 05/31/14 03/18/19 Atenolol [Tenormin] 50 mg PO HS 05/31/14 03/18/19 Atorvastatin [Lipitor] 40 mg PO HS 05/31/14 03/18/19 Lisinopril [Zestril] 10 mg PO DAILY 05/31/14 03/18/19 Mometasone Furoate [Nasonex Nasal 2 spray EA NOSTRIL HS 05/31/14 03/18/19 [place]] glipiZIDE [Glucotrol XL] 10 mg PO BID 05/31/14 03/18/19 Esomeprazole Magnesium [NexIUM 22.3 mg PO DAILY 10/27/16 03/18/19 24Hr] metFORMIN HCL [Glucophage] 1,000 mg PO BID 10/25/17 03/18/19 Aspirin EC [Ecotrin Low Dose] 81 mg PO DAILY 03/23/18 03/18/19 HYDROcodone/APAP 7.5-325MG [[place] 1 tab PO TID PRN 03/23/18 03/18/19 7.5-325] Tamsulosin HCl [Flomax] 0.8 mg PO DAILY 03/23/18 03/18/19 Clopidogrel [Plavix] 75 mg PO DAILY 03/12/19 03/18/19 Empagliflozin [Jardiance] 10 mg PO DAILY 03/18/19 03/18/19 Magnesium Oxide 400 mg PO DAILY 03/18/19 03/18/19 Previous Rx's Medication Instructions Recorded Nitroglycerin Sl Tabs [Nitrostat] 0.4 mg SUBLINGUAL Q5M PRN #25 tab 10/28/17 Isosorbide Mononitrate ER [Imdur] 60 mg PO DAILY #30 tab 03/16/18 Allergies Allergy/AdvReac Type Severity Reaction Status Date / Time No Known Allergies Allergy Verified 12/05/19 18:54 Review of Systems ROS Statement: Those systems with pertinent positive or pertinent negative responses have been documented in the HPI. ROS Other: All systems not noted in ROS Statement are negative. Constitutional: Denies: fever Eyes: Denies: eye pain ENT: Denies: ear pain Respiratory: Reports: dyspnea Cardiovascular: Reports: chest pain Endocrine: Reports: fatigue (With exertion) Gastrointestinal: Denies: abdominal pain Genitourinary: Denies: dysuria Musculoskeletal: Denies: arthralgia Skin: Denies: rash Neurological: Denies: weakness Past Medical History Past Medical History: Coronary Artery Disease (CAD), Cancer, Chest Pain / Angina, Diabetes Mellitus, GERD/Reflux, Hyperlipidemia, Hypertension, Myocardial Infarction ([place]), Osteoarthritis (OA), Prostate Disorder, Skin Disorder Additional Past Medical History / Comment(s): Hx. KIDNEY STONES, SOB on exertion with chest pain, dry skin, hx bladder cancer. Last Myocardial Infarction Date:: 2004 History of Any Multi-Drug Resistant Organisms: None Reported Past Surgical History: Appendectomy, Back Surgery, Ear Surgery, Heart Catheterization, Heart Catheterization With Stent, Orthopedic Surgery Additional Past Surgical History / Comment(s): METAL SCREWS IN BACK, Hx. RIGHT EAR TUBE/, EPIDURAL PAIN SHOTS, previous stents 2004,2005, LITHOTRIPSY, rt shoulder rotator cuff, colonoscopy. Past Anesthesia/Blood Transfusion Reactions: No Reported Reaction Date of Last Stent Placement:: 05/2014 Past Psychological History: Anxiety Smoking Status: Never smoker - Past Family History Father Family Medical History: Cancer Additional Family Medical History / Comment(s): BRAIN Mother Family Medical History: Chest Pain / Angina, Coronary Artery Disease (CAD), Dementia, Diabetes Mellitus, Hyperlipidemia, Hypertension, Respiratory Disorder Additional Family Medical History / Comment(s): CABG quadruple bypass (No [place]), ruptured colon General Exam Limitations: no limitations General appearance: alert, in no apparent distress Head exam: Present: normocephalic Eye exam: Present: normal appearance, PERRL ENT exam: Present: normal oropharynx Neck exam: Present: normal inspection Respiratory exam: Present: normal lung sounds bilaterally. Absent: chest wall tenderness Cardiovascular Exam: Present: regular rate, normal rhythm Expanded Peripheral pulses: 2+: Radial (R), Radial (L), Dorsalis Pedis (R), Dorsalis Pedis (L) GI/Abdominal exam: Present: soft. Absent: tenderness Extremities exam: Present: normal inspection. Absent: pedal edema, calf tenderness Neurological exam: Present: alert Psychiatric exam: Present: normal affect, normal mood Skin exam: Present: normal color Course Vital Signs 12/05/19 12/05/19 12/05/19 18:52 19:01 20:00 Temperature 97.4 F L Pulse Rate 63 64 61 Respiratory 16 15 16 Rate Blood Pressure 162/82 148/76 O2 Sat by Pulse 99 Oximetry 12/05/19 12/05/19 20:53 21:00 Temperature Pulse Rate 58 L 60 Respiratory 20 17 Rate Blood Pressure 135/74 135/74 O2 Sat by Pulse 97 Oximetry EKG Findings - EKG Comments: EKG Findings:: Normal sinus rhythm 64. OK 158. QRS 100. QT 428. QTC 441. Normal axis. Inferior Q waves. No acute ST change. Medical Decision Making - Medical Decision Making Patient reevaluated and resting comfortably in bed. Patient and family updated. Case discussed with Dr. Salinas who did come evaluate patient in the emergency department, and will admit. - Lab Data Result diagrams: 12/05/19 19:05 12/05/19 19:05 Lab Results 12/05/19 12/05/19 12/05/19 Range/Units 19:05 19:05 19:05 WBC 7.1 (3.8-10.6) k/uL RBC 4.20 L (4.30-5.90) m/uL Hgb 13.5 (13.0-17.5) gm/dL Hct 40.5 (39.0-53.0) % MCV 96.6 (80.0-100.0) fL MCH 32.2 (25.0-35.0) pg MCHC 33.3 (31.0-37.0) g/dL RDW 13.2 (11.5-15.5) % Plt Count 191 (150-450) k/uL Neutrophils % 65 % Lymphocytes % 25 % Monocytes % 5 % Eosinophils % 2 % Basophils % 0 % Neutrophils # 4.6 (1.3-7.7) k/uL Lymphocytes # 1.7 (1.0-4.8) k/uL Monocytes # 0.4 (0-1.0) k/uL Eosinophils # 0.1 (0-0.7) k/uL Basophils # 0.0 (0-0.2) k/uL PT 10.0 (9.0-12.0) sec INR 1.0 (<1.2) APTT 23.0 (22.0-30.0) sec D-Dimer 0.26 (<0.60) mg/L FEU Sodium 140 (137-145) mmol/L Potassium 4.4 (3.5-5.1) mmol/L Chloride 107 (98-107) mmol/L Carbon Dioxide 23 (22-30) mmol/L Anion Gap 10 mmol/L BUN 16 (9-20) mg/dL Creatinine 1.29 H (0.66-1.25) mg/dL Est GFR (CKD-EPI)AfAm 65 (>60 ml/min/1.73 sqM) Est GFR (CKD-EPI)NonAf 56 (>60 ml/min/1.73 sqM) Glucose 199 H (74-99) mg/dL Calcium 10.1 (8.4-10.2) mg/dL Magnesium 1.6 (1.6-2.3) mg/dL Total Bilirubin 0.4 (0.2-1.3) mg/dL AST 28 (17-59) U/L ALT 22 (4-49) U/L Alkaline Phosphatase 64 (38-126) U/L Troponin I (0.000-0.034) ng/mL Total Protein 7.0 (6.3-8.2) g/dL Albumin 4.3 (3.5-5.0) g/dL 12/05/19 Range/Units 19:05 WBC (3.8-10.6) k/uL RBC (4.30-5.90) m/uL Hgb (13.0-17.5) gm/dL Hct (39.0-53.0) % MCV (80.0-100.0) fL MCH (25.0-35.0) pg MCHC (31.0-37.0) g/dL RDW (11.5-15.5) % Plt Count (150-450) k/uL Neutrophils % % Lymphocytes % % Monocytes % % Eosinophils % % Basophils % % Neutrophils # (1.3-7.7) k/uL Lymphocytes # (1.0-4.8) k/uL Monocytes # (0-1.0) k/uL Eosinophils # (0-0.7) k/uL Basophils # (0-0.2) k/uL PT (9.0-12.0) sec INR (<1.2) APTT (22.0-30.0) sec D-Dimer (<0.60) mg/L FEU Sodium (137-145) mmol/L Potassium (3.5-5.1) mmol/L Chloride (98-107) mmol/L Carbon Dioxide (22-30) mmol/L Anion Gap mmol/L BUN (9-20) mg/dL Creatinine (0.66-1.25) mg/dL Est GFR (CKD-EPI)AfAm (>60 ml/min/1.73 sqM) Est GFR (CKD-EPI)NonAf (>60 ml/min/1.73 sqM) Glucose (74-99) mg/dL Calcium (8.4-10.2) mg/dL Magnesium (1.6-2.3) mg/dL Total Bilirubin (0.2-1.3) mg/dL AST (17-59) U/L ALT (4-49) U/L Alkaline Phosphatase (38-126) U/L Troponin I <0.012 (0.000-0.034) ng/mL Total Protein (6.3-8.2) g/dL Albumin (3.5-5.0) g/dL - Radiology Data Radiology results: image reviewed (Chest x-ray shows no acute process) Disposition Clinical Impression: Chest pain Disposition: ADMITTED IP TO THIS [facility] Is patient prescribed a controlled substance at d/c from ED?: No Referrals: Arabella Jacome MD [Primary Care Provider] - 1-2 days Decision Time: 21:21
[2019-12-05] MEDS ORDERED: MORPHINE SULFATE 4 MG/ML SYRINGE IV STA (19:32)
[2019-12-05 19:41] LABS: Basophils % (A) 0 %; Eosinophils # (A) 0.1 k/uL (0-0.7); Eosinophils % (A) 2 %; HCT 40.5 % (39.0-53.0); HGB 13.5 gm/dL (13.0-17.5); Lymphocytes # (A) 1.7 k/uL (1.0-4.8); Lymphocytes % (A) 25 %; MCH 32.2 pg (25.0-35.0); MCHC 33.3 g/dL (31.0-37.0); MCV 96.6 fL (80.0-100.0); Mean Platelet Volume 7.4; Monocytes # (A) 0.4 k/uL (0-1.0); Monocytes % (A) 5 %; Neutrophils # (A) 4.6 k/uL (1.3-7.7); Neutrophils % (A) 65 %; Platelet Count 191 k/uL (150-450); RDW 13.2 % (11.5-15.5); WBC 7.1 k/uL (3.8-10.6)
--- NOTE | 2019-12-05 19:42 | XR ---
EXAMINATION TYPE: XR chest 2V DATE OF EXAM: 12/05/2019 COMPARISON: Chest x-ray March 10, 2018 HISTORY: Chest pain for 2 days. TECHNIQUE: Frontal and lateral views of the chest are obtained. FINDINGS: Elevation and eventration anterior aspect right hemidiaphragm redemonstrated. There is no focal air space opacity, pleural effusion, or pneumothorax seen. The cardiac silhouette size is stab le and upper limits of normal. On lateral view there is new coronary stent anteriorly identified. T he osseous structures are intact. IMPRESSION: No acute process.
[2019-12-05 19:54] LABS: Albumin 4.3 g/dL (3.5-5.0); Calcium 10.1 mg/dL (8.4-10.2); Magnesium 1.6 mg/dL (1.6-2.3); Potassium 4.4 mmol/L (3.5-5.1); Total Bilirubin 0.4 mg/dL (0.2-1.3)
[2019-12-05 20:19] LABS: D-Dimer 0.26 mg/L FEU (<0.60)
[2019-12-05] MEDS ORDERED: NITROGLYCERIN SL TABS 0.4 MG TAB SUBLINGUAL PRN (21:21)
[2019-12-05 23:14] LABS: Glucose,Whole Blood 146 mg/dL (75-99)
[2019-12-05] MEDS ORDERED: LORazepam 1 MG TAB PO PRN (23:20)
--- NOTE | 2019-12-05 23:51 | P.HPIM ---
History of Present Illness H&P Date: 12/05/19 Chief Complaint: chest pain 69 year old male with CAD s/p stents , DM, hypertension and hyperlipidemia patient comes in due to worsening chest pain over the past 2-3 days . he reports central chest pain radiating across the chest associated with some degree of dyspnea and nausea, with exertion, rated 8/10 in severity , improves with resting and nitro, however pain became more severe today, and did not improve even with nitro and rest , for which he decided to come to the hospital ,, his last follow up with cardiology 6 months ago , recommended to continue with medical therapy . he describes symptoms suggestive of stable angina. otherwise densie any fever, chills, recent traveling, GI sympotms , or URI symptoms . he feels anxious at time of evaluation , but reports pain has eased down to 5/10 in severity. initial workup in the ED showed no acute ST changes on EKG, no elevated troponins . Review of Systems Pertinent positives as noted in HPI. All other systems were reviewed and are negative Past Medical History Past Medical History: Coronary Artery Disease (CAD), Cancer, Chest Pain / Angina, Diabetes Mellitus, GERD/Reflux, Hyperlipidemia, Hypertension, Myocardial Infarction ([place]), Osteoarthritis (OA), Prostate Disorder, Skin Disorder Additional Past Medical History / Comment(s): Hx. KIDNEY STONES, SOB on exertion with chest pain, dry skin, hx bladder cancer. Last Myocardial Infarction Date:: 2004 History of Any Multi-Drug Resistant Organisms: None Reported Past Surgical History: Appendectomy, Back Surgery, Ear Surgery, Heart Catheterization, Heart Catheterization With Stent, Orthopedic Surgery Additional Past Surgical History / Comment(s): METAL SCREWS IN BACK, Hx. RIGHT EAR TUBE/, EPIDURAL PAIN SHOTS, previous stents 2004,2005, LITHOTRIPSY, rt shoulder rotator cuff, colonoscopy. Past Anesthesia/Blood Transfusion Reactions: No Reported Reaction Date of Last Stent Placement:: 05/2014 Past Psychological History: Anxiety Smoking Status: Never smoker Past Alcohol Use History: Rare Past Drug Use History: None Reported - Past Family History Father Family Medical History: Cancer Additional Family Medical History / Comment(s): BRAIN Mother Family Medical History: Chest Pain / Angina, Coronary Artery Disease (CAD), Dementia, Diabetes Mellitus, Hyperlipidemia, Hypertension, Respiratory Disorder Additional Family Medical History / Comment(s): CABG quadruple bypass (No [place]), ruptured colon Medications and Allergies Home Medications Medication Instructions Recorded Confirmed Type ALPRAZolam [Xanax] 0.25 mg PO TID PRN 05/31/14 03/18/19 History Acarbose [Precose] 50 mg PO TID 05/31/14 03/18/19 History Atenolol [Tenormin] 50 mg PO HS 05/31/14 03/18/19 History Atorvastatin [Lipitor] 40 mg PO HS 05/31/14 03/18/19 History Lisinopril [Zestril] 10 mg PO DAILY 05/31/14 03/18/19 History Mometasone Furoate [Nasonex Nasal 2 spray EA NOSTRIL HS 05/31/14 03/18/19 History [place]] glipiZIDE [Glucotrol XL] 10 mg PO BID 05/31/14 03/18/19 History Esomeprazole Magnesium [NexIUM 22.3 mg PO DAILY 10/27/16 03/18/19 History 24Hr] metFORMIN HCL [Glucophage] 1,000 mg PO BID 10/25/17 03/18/19 History Nitroglycerin Sl Tabs [Nitrostat] 0.4 mg SUBLINGUAL Q5M PRN #25 tab 10/28/17 03/18/19 Rx Isosorbide Mononitrate ER [Imdur] 60 mg PO DAILY #30 tab 03/16/18 03/18/19 Rx Aspirin EC [Ecotrin Low Dose] 81 mg PO DAILY 03/23/18 03/18/19 History HYDROcodone/APAP 7.5-325MG [[place] 1 tab PO TID PRN 03/23/18 03/18/19 History 7.5-325] Tamsulosin HCl [Flomax] 0.8 mg PO DAILY 03/23/18 03/18/19 History Clopidogrel [Plavix] 75 mg PO DAILY 03/12/19 03/18/19 History Empagliflozin [Jardiance] 10 mg PO DAILY 03/18/19 03/18/19 History Magnesium Oxide 400 mg PO DAILY 03/18/19 03/18/19 History Allergies Allergy/AdvReac Type Severity Reaction Status Date / Time No Known Allergies Allergy Verified 12/05/19 18:54 Physical Exam Vitals: Vital Signs Temp Pulse Pulse Resp BP BP Pulse Ox 12/05/19 22:49 97.5 F L 66 18 175/81 97 12/05/19 22:27 98.6 F 64 18 157/80 99 12/05/19 21:00 60 17 135/74 12/05/19 20:53 58 L 20 135/74 97 12/05/19 20:00 61 16 148/76 12/05/19 19:01 64 15 12/05/19 18:52 97.4 F L 63 16 162/82 99 Intake and Output 12/05/19 12/05/19 12/06/19 14:59 22:59 06:59 Other: Weight 86.183 kg Constitutional: No acute distress, conversant, pleasant Eyes: Anicteric sclerae, moist conjunctiva, no lid-lag Pupils equal round reactive to light ENMT: NC/AT Oropharynx clear, no erythema, exudates Neck: Supple, FROM, no masses, or JVD No carotid bruits No thyromegaly Lungs: Clear to auscultation Clear to percussion Normal respiratory effort, no accessory muscle use Cardiovascular: Heart regular in rate and rhythm, No murmurs, gallops, or rubs No peripheral edema Abdominal: Soft Nontender, no guarding, rebound or rigidity Abdomen moving with respiration Normoactive bowel sounds No hepatomegaly, No splenomegaly No palpable mass No abdominal wall hernia noted Skin: Normal temperature, tone, texture, turgor No induration No subcutaneous nodules No rash, lesions No ulcers Extremities: No digital cyanosis No clubbing Pedal pulses intact and symmetrical Radial pulses intact and symmetrical No calf tenderness Psychiatric: Alert and oriented to person, place and time Appropriate affect fair judgement Neuro Muscles Strength 5/5 in all 4 extremities Sensation to light touch grossly present throughout Cranial nerves II-XII grossly intact No focal sensory deficits Lymphatics: no palpable cervical or supraclavicular , or inguinal lymph no jordin Results CBC & Chem 7: 12/05/19 19:05 12/05/19 19:05 Labs: Abnormal Lab Results - Last 24 Hours (Table) 12/05/19 12/05/19 Range/Units 19:05 19:05 RBC 4.20 L (4.30-5.90) m/uL Creatinine 1.29 H (0.66-1.25) mg/dL Glucose 199 H (74-99) mg/dL Thrombosis Risk Factor Assmnt - Choose All That Apply Any of the Below Risk Factors Present?: Yes Each Factor Represents 1 point: Obesity (BMI >25) Each Risk Factor Represents 2 Points: Age 61-74 years Other congenital or acquired thrombophilia - If yes, enter type in comment: No Thrombosis Risk Factor Assessment Total Risk Factor Score: 3 Thrombosis Risk Factor Assessment Level: Moderate Risk Assessment and Plan Assessment: 69 year old male with CAD s/p multiple stents , comes in with symptoms of stable angina, admitted for cardiology evaluation , anticipated length of stay <2 midnights Plan: chest pain with typical features, r/o ACS cardiology evalution trend cradiac enzymes symptomatic control with nitro , morphine ativan PRN resume home meds, statin , aspirin and plavix director of cardiac cath lab close monitoring of vital sings hypertension , controlled with home meds resume home meds DM on oral hypoglycemic agents switch to insulin sliding scale while hospitalized CODE STATUS:full code DVT prophylaxis: heparin sc tid Discussed with: Patient, ER Anticipated length of stay < than [address]: home A total of 60 minutes was spent on the care of this complex patient more than 50% of the time was spent in counseling and care coordination.
[2019-12-05] MEDS: MORPHINE SULFATE 4 MG/ML SYRINGE IVP PRN (23:57)
[2019-12-06] MEDS: ATENOLOL 50 MG TAB PO SCH
[2019-12-06] MEDS: MELATONIN 3 MG TABLET PO SCH ×2 (00:01→21:44)
[2019-12-06] MEDS: NITROGLYCERIN OINT 1 INCH/GM PACKET TOPICAL SCH ×4 (00:05→19:41)
[2019-12-06] MEDS: HEPARIN SODIUM,PORCINE 5,000 UNIT/ML 1 ML VIAL SQ SCH ×3 (00:05→17:11)
[2019-12-06 06:37] LABS: Glucose,Whole Blood 88 mg/dL (75-99)
[2019-12-06 07:36] LABS: Calcium 9.3 mg/dL (8.4-10.2)
[2019-12-06 08:11] LABS: Basophils % (A) 0 %; Eosinophils # (A) 0.3 k/uL (0-0.7); Eosinophils % (A) 3 %; HCT 38.7 % (39.0-53.0); Lymphocytes # (A) 2.4 k/uL (1.0-4.8); Lymphocytes % (A) 33 %; MCH 31.9 pg (25.0-35.0); MCHC 33.7 g/dL (31.0-37.0); MCV 94.7 fL (80.0-100.0); Mean Platelet Volume 8.4; Monocytes # (A) 0.5 k/uL (0-1.0); Monocytes % (A) 7 %; Neutrophils % (A) 54 %; Platelet Count 148 k/uL (150-450); RBC 4.09 m/uL (4.30-5.90); RDW 13.2 % (11.5-15.5); WBC 7.4 k/uL (3.8-10.6)
[2019-12-06] MEDS: INSULIN ASPART (NovoLOG) 100 UNIT/ML VIAL SQ SCH ×4 (08:50→21:44)
[2019-12-06] MEDS: MORPHINE SULFATE 4 MG/ML SYRINGE IVP PRN (08:57)
[2019-12-06] MEDS: TAMSULOSIN 0.4 MG CAP.ER.24H PO SCH (08:58)
[2019-12-06] MEDS: LISINOPRIL 10 MG TAB PO SCH (08:58)
[2019-12-06] MEDS: PANTOPRAZOLE 40 MG TABLET PO SCH (08:59)
[2019-12-06] MEDS ORDERED: CLOPIDOGREL 75 MG TAB PO SCH (09:00)
[2019-12-06] MEDS ORDERED: ASPIRIN 81 MG PO SCH (09:00)
[2019-12-06] MEDS ORDERED: ASPIRIN 325 MG TAB PO SCH (09:00)
[2019-12-06] MEDS: ISOSORBIDE MONONITRATE ER 60 MG TAB.ER.24H PO SCH (09:01)
--- NOTE | 2019-12-06 11:24 | US ---
EXAMINATION TYPE: US gallbladder DATE OF EXAM: 12/06/2019 COMPARISON: CT abdomen pelvis dated 10/26/2017 CLINICAL HISTORY: cp, abd pain . EXAM MEASUREMENTS: Liver Length: 16.2 cm Gallbladder Wall: 0.2 cm CBD: 0.4 cm Right Kidney: 13.5 x 6.3 x 5.9 cm Pancreas: Obscured by bowel gas Liver: Echogenic, heterogeneous Gallbladder: wnl Evidence for sonographic Anderson's sign: No CBD: wnl as visualized Right Kidney: No hydro. Multiple echogenic foci visualized, largest mid pole measuring 0.8 cm IMPRESSION: 1. Diffusely heterogenous hepatic echotexture. Correlation with liver function tests is recommended. This can be seen and hepatic steatosis however other hepatocellular diseases are certainly possible g iven the diffuse heterogeneity. 2. No sonographic evidence of cholelithiasis or acute cholecystitis. 3. Nonobstructing right renal calculi, the largest measuring 8 mm. 4. Obscuration of the pancreas by overlying bowel gas.
[2019-12-06 11:31] LABS: Glucose,Whole Blood 123 mg/dL (75-99)
[2019-12-06] MEDS ORDERED: SODIUM CHLORIDE 0.9% 1,000 ML in EMPTY BAG 1 BAG IV ONE (12:14)
[2019-12-06] MEDS ORDERED: ASPIRIN 325 MG TAB PO ONE (12:16)
--- NOTE | 2019-12-06 12:30 | P.CRDCN ---
History of Present Illness History of present illness: HISTORY OF PRESENTING ILLNESS This is a pleasant 69-year-old male past medical history significant for coronary artery disease s/p multiple PCI's, dyslipidemia, hypertension, diabetes mellitus, chronic kidney stones arctic systolic heart failure, ischemic cardiomyopathy and arthritis. He follows in the office with Jenna Hughes. He last had a heart catheterization 09/2018 revealing patent stents in the RCA with mild ostial disease and patent stents in the diagonal branch w ith some haziness present. No other significant obstructive disease. We have been asked to see in consultation for chest pain. He states he was woken up from sleep on Friday night with a sharp pain in the left upper arm that subsequently radiated to the mid-sternal region and felt like a heavy pressure sensation on the chest. He tried taking SL nitro but this did not relieve his pain. The symptoms persisted all day without any specific aggravating or alleviating factors. Finally around 1700 the pain had been constant all day so he came in for evaluation. He denies having any associated shortness of breath, dizziness, palpitations, nausea, vomiting or diaphoresis. He states he is chronic short of breath with exertion for many years. No worsening lately. Most recent echocardiogram obtained in 2018 reveals impaired LV systolic function with ejection fraction 40-45%, basal posterior, basal inferior, basal inferoseptal, mid inferior and apical inferior wall motion hypokinesia, mild MR and mild TR. Recent Lexiscan stress test in the office 07/2019 reveals a predominantly fixed defect in the inferior territory with no reversibility. DIAGNOSTICS EKG reveals sinus mechanism, inferior Q wave no acute ST or T-wave abnormalities. Chest xray negative for an acute cardiopulmonary process. Laboratory reviewed, WBC 7.4, hemoglobin 13, platelets 148, sodium 139, potassium 4, creatinine 1.13 with a GFR 66, cardiac enzymes negative 3, LDL 52, HDL 42. Current cardiac medications include aspirin 81 mg daily, atenolol 50 mg daily, atorvastatin 40 mg daily, Plavix 75 mg daily, Imdur 60 mg daily, lisinopril 10 mg daily and Ranexa 1000 mg twice a day. REVIEW OF SYSTEMS At the time of my exam: CONSTITUTIONAL: Denies fever or chills. CARDIOVASCULAR: Denies chest pain, shortness of breath, orthopnea, PND or palpitations. RESPIRATORY: Denies cough. GASTROINTESTINAL: Denies abdominal pain, diarrhea, constipation, nausea or vomiting. MUSCULOSKELETAL: Denies myalgias. NEUROLOGIC: Denies numbness, tingling or weakness. ENDOCRINE: Denies fatigue, weight change, polydipsia or polyurina. GENITOURINARY: Denies burning, hematuria or urgency with micturation. HEMATOLOGIC: Denies history of anemia or bleeding. PHYSICAL EXAMINATION Blood pressure 152/73 heart rate 51 afebrile and maintaining oxygen saturation on room air. CONSTITUTIONAL: No apparent distress. HEENT: Head is normocephalic. Pupils are equal, round. Sclerae anicteric. Mucous membranes of the mouth are moist. No JVD. No carotid bruit. CHEST EXAMINATION: Lungs are clear to auscultation. No chest wall tenderness is noted on palpation or with deep breathing. HEART EXAMINATION: Regular rate and rhythm. S1, S2 heard. No murmurs, gallops or rub. ABDOMEN: Soft, nontender. Positive bowel sounds. EXTREMITIES: 2+ peripheral pulses, no lower extremity edema and no calf tenderness. NEUROLOGIC EXAMINATION: Patient is awake, alert and oriented x3. ASSESSMENT Chest pain Exertional dyspnea Chronic systolic heart failure, currently euvolemic Ischemic cardiomyopathy Hypertension Dyslipdiemia Diabetes mellitus PLAN Obtain 2D echocardiogram and doppler study to assess cardiac structure and function. Given his recurrent symptoms of chest pain unremarkable stress test last year we will consider moving forward with coronary angiography for definitive diagnosis. I have discussed the risks, benefits and alternative therapies for the above- mentioned procedure and for both sedation/analgesia as well as necessary blood product administration, if indicated, as they pertain to this patient. The patient has indicated understanding and acceptance of the risks and procedures discussed. Questions have been answered appropriately and he is agreeable to move forward with above stated procedure. Further recommendations to follow. Thank you kindly for this consultation. Nurse Practitioner note has been reviewed, I agree with a documented findings and plan of care. Patient was seen and examined. Past Medical History Past Medical History: Coronary Artery Disease (CAD), Cancer, Chest Pain / Angina, Diabetes Mellitus, GERD/Reflux, Hyperlipidemia, Hypertension, Myocardial Infarction ([place]), Osteoarthritis (OA), Prostate Disorder, Skin Disorder Additional Past Medical History / Comment(s): Hx. KIDNEY STONES, SOB on exertion with chest pain, dry skin, hx bladder cancer. Last Myocardial Infarction Date:: 2004 History of Any Multi-Drug Resistant Organisms: None Reported Past Surgical History: Appendectomy, Back Surgery, Ear Surgery, Heart Catheterization, Heart Catheterization With Stent, Orthopedic Surgery Additional Past Surgical History / Comment(s): METAL SCREWS IN BACK, Hx. RIGHT EAR TUBE/, EPIDURAL PAIN SHOTS, previous stents 2004,2005, LITHOTRIPSY, rt shoulder rotator cuff, colonoscopy. Past Anesthesia/Blood Transfusion Reactions: No Reported Reaction Date of Last Stent Placement:: 05/2014 Past Psychological History: Anxiety Smoking Status: Never smoker Past Alcohol Use History: Rare Past Drug Use History: None Reported - Past Family History Father Family Medical History: Cancer Additional Family Medical History / Comment(s): BRAIN Mother Family Medical History: Chest Pain / Angina, Coronary Artery Disease (CAD), Dementia, Diabetes Mellitus, Hyperlipidemia, Hypertension, Respiratory Disorder Additional Family Medical History / Comment(s): CABG quadruple bypass (No [place]), ruptured colon Medications and Allergies Home Medications Medication Instructions Recorded Confirmed Type ALPRAZolam [Xanax] 0.25 mg PO Q8H PRN 05/31/14 12/06/19 History Acarbose [Precose] 50 mg PO TID 05/31/14 12/06/19 History Atenolol [Tenormin] 50 mg PO DAILY 05/31/14 12/06/19 History Atorvastatin [Lipitor] 40 mg PO HS 05/31/14 12/06/19 History Lisinopril [Zestril] 10 mg PO DAILY 05/31/14 12/06/19 History Mometasone Furoate [Nasonex Nasal 2 spray EA NOSTRIL HS 05/31/14 12/06/19 History [place]] glipiZIDE [Glucotrol XL] 10 mg PO BID 05/31/14 12/06/19 History metFORMIN HCL [Glucophage] 1,000 mg PO BID 10/25/17 12/06/19 History Nitroglycerin Sl Tabs [Nitrostat] 0.4 mg SUBLINGUAL Q5M PRN #25 tab 10/28/17 12/06/19 Rx Isosorbide Mononitrate ER [Imdur] 60 mg PO DAILY #30 tab 03/16/18 12/06/19 Rx Aspirin EC [Ecotrin Low Dose] 81 mg PO DAILY 03/23/18 12/06/19 History Tamsulosin HCl [Flomax] 0.8 mg PO DAILY 03/23/18 12/06/19 History Clopidogrel [Plavix] 75 mg PO DAILY 03/12/19 12/06/19 History Empagliflozin [Jardiance] 10 mg PO DAILY 03/18/19 12/06/19 History Esomeprazole Magnesium [NexIUM] 20 mg PO DAILY 12/06/19 12/06/19 History HYDROcodone/APAP 10-325MG [[place] 1 tab PO TID PRN 12/06/19 12/06/19 History 10-325] Ranolazine [Ranexa] 1,000 mg PO BID 12/06/19 12/06/19 History Allergies Allergy/AdvReac Type Severity Reaction Status Date / Time No Known Allergies Allergy Verified 12/06/19 10:37 Physical Exam Vitals: Vital Signs Temp Pulse Pulse Resp BP BP Pulse Ox 12/06/19 12:00 51 L 18 12/06/19 11:17 97.6 F 51 L 18 152/73 97 12/06/19 08:00 50 L 18 12/06/19 07:09 97.9 F 50 L 18 160/80 96 12/06/19 04:13 97.7 F 46 L 18 137/73 97 12/06/19 03:55 55 L 18 12/05/19 23:48 97.6 F 55 L 18 157/70 98 12/05/19 22:50 55 L 18 12/05/19 22:49 97.5 F L 66 18 175/81 97 12/05/19 22:27 98.6 F 64 18 157/80 99 12/05/19 21:00 60 17 135/74 12/05/19 20:53 58 L 20 135/74 97 12/05/19 20:00 61 16 148/76 12/05/19 19:01 64 15 12/05/19 18:52 97.4 F L 63 16 162/82 99 Intake and Output 12/05/19 12/06/19 12/06/19 22:59 06:59 14:59 Other: Voiding Method Toilet Weight 86.183 kg 85.5 kg Results 12/06/19 07:05 12/06/19 07:05 Cardiac Enzymes 12/05/19 12/05/19 12/06/19 Range/Units 19:05 19:05 01:13 AST 28 (17-59) U/L Troponin I <0.012 <0.012 (0.000-0.034) ng/mL 12/06/19 Range/Units 07:05 AST (17-59) U/L Troponin I <0.012 (0.000-0.034) ng/mL Coagulation 12/05/19 Range/Units 19:05 PT 10.0 (9.0-12.0) sec APTT 23.0 (22.0-30.0) sec Lipids 12/06/19 Range/Units 07:05 Triglycerides 271 H (<150) mg/dL Cholesterol 148 (<200) mg/dL HDL Cholesterol 42 (40-60) mg/dL CBC 12/05/19 12/06/19 Range/Units 19:05 07:05 WBC 7.1 7.4 (3.8-10.6) k/uL RBC 4.20 L 4.09 L (4.30-5.90) m/uL Hgb 13.5 13.0 (13.0-17.5) gm/dL Hct 40.5 38.7 L (39.0-53.0) % Plt Count 191 148 L (150-450) k/uL Comprehensive Metabolic Panel 12/05/19 12/06/19 Range/Units 19:05 07:05 Sodium 140 139 (137-145) mmol/L Potassium 4.4 4.0 (3.5-5.1) mmol/L Chloride 107 111 H (98-107) mmol/L Carbon Dioxide 23 19 L (22-30) mmol/L BUN 16 15 (9-20) mg/dL Creatinine 1.29 H 1.13 (0.66-1.25) mg/dL Glucose 199 H 80 (74-99) mg/dL Calcium 10.1 9.3 (8.4-10.2) mg/dL AST 28 (17-59) U/L ALT 22 (4-49) U/L Alkaline Phosphatase 64 (38-126) U/L Total Protein 7.0 (6.3-8.2) g/dL Albumin 4.3 (3.5-5.0) g/dL Current Medications Generic Name Dose Route Start Last Admin Trade Name Freq PRN Reason Stop Dose Admin Atenolol 50 mg 12/05/19 23:30 12/06/19 00:00 Tenormin PO 50 mg HS ARTHUR Administration Atorvastatin Calcium 40 mg 12/05/19 23:30 12/06/19 00:00 Lipitor PO 40 mg HS [facility] Administration Clopidogrel Bisulfate 75 mg 12/06/19 09:00 12/06/19 08:58 Plavix PO 75 mg DAILY [facility] Administration Heparin Sodium (Porcine) 5,000 unit 12/06/19 00:00 12/06/19 08:57 Heparin SQ 5,000 unit Q8HR [facility] Administration Insulin Aspart 0 unit 12/06/19 07:30 12/06/19 11:32 Novolog SQ Not Given ACHS [facility] Protocol Isosorbide Mononitrate 60 mg 12/06/19 09:00 12/06/19 09:01 Imdur PO 60 mg DAILY [facility] Administration Lisinopril 10 mg 12/06/19 09:00 12/06/19 08:58 Zestril PO 10 mg DAILY [facility] Administration Lorazepam 1 mg 12/05/19 23:20 Ativan PO Q8HR PRN Anxiety Melatonin 3 mg 12/05/19 23:30 12/06/19 00:01 Melatonin PO 3 mg HS [facility] Administration Morphine Sulfate 4 mg 12/05/19 23:20 12/06/19 08:57 Morphine Sulfate (Inj) IVP 4 mg Q4HR PRN Administration Pain Nitroglycerin 1 inch 12/06/19 00:00 12/06/19 08:50 Nitro-Bid Oint TOPICAL Not Given Q6HR [facility] Pantoprazole Sodium 40 mg 12/06/19 07:30 12/06/19 08:59 Protonix PO 40 mg DAILY@0730 [facility] Administration Tamsulosin HCl 0.8 mg 12/06/19 09:00 12/06/19 08:58 Flomax PO 0.8 mg DAILY [facility] Administration Intake and Output 12/05/19 12/06/19 12/06/19 22:59 06:59 14:59 Other: Voiding Method Toilet Weight 86.183 kg 85.5 kg 12/06/19 07:05 12/06/19 07:05
--- NOTE | 2019-12-06 15:57 | P.PN ---
Subjective Progress Note Date: 12/06/19 Principal diagnosis: Chest pain Patient was seen and examined. No acute events overnight. Patient reports continued chest pain is midsternal, 4-5 out of 10 in severity. Patient reports the pain to be pressure-like. Plans to undergo cardiac catheterization today. He denies any shortness of breath or palpitations. No nausea or vomiting. No fever or chills. Objective - Vital Signs Vital signs: Vital Signs Temp 97.8 F 12/06/19 15:44 Pulse 61 12/06/19 15:44 Resp 18 12/06/19 15:44 BP 146/68 12/06/19 15:44 Pulse Ox 97 12/06/19 15:44 Intake & Output 12/05/19 12/06/19 12/06/19 18:59 06:59 18:59 Intake Total 222 Balance 222 Weight 86.183 kg 85.5 kg Intake: Oral 222 Other: Voiding Method Toilet - Exam General: [non toxic], [no distress], [appears at stated age] Derm: [warm], [dry] Head: [atraumatic], [normocephalic], [symmetric] Eyes: [EOMI], [no lid lag], [anicteric sclera] Mouth: [no lip lesion], [mucus membranes moist] Cardiovascular: [S1S2 reg], [no murmur], [positive posterior tibial pulse bilateral], Lungs: [CTA bilateral], [no rhonchi, no rales] , [no accessory muscle use] Abdominal: [soft], [ nontender to palpation], [no guarding], [no appreciable organomegaly] Ext: [no gross muscle atrophy], [no edema], [no contractures] Neuro: [no focal neuro deficits] Psych: [Alert], [oriented], [appropriate affect] - Labs CBC & Chem 7: 12/06/19 07:05 12/06/19 07:05 Labs: Abnormal Lab Results - Last 24 Hours (Table) 12/05/19 12/05/19 12/05/19 Range/Units 19:05 19:05 23:12 RBC 4.20 L (4.30-5.90) m/uL Hct (39.0-53.0) % Plt Count (150-450) k/uL Chloride (98-107) mmol/L Carbon Dioxide (22-30) mmol/L Creatinine 1.29 H (0.66-1.25) mg/dL Glucose 199 H (74-99) mg/dL POC Glucose (mg/dL) 146 H (75-99) mg/dL Triglycerides (<150) mg/dL 12/06/19 12/06/19 12/06/19 Range/Units 07:05 07:05 11:30 RBC 4.09 L (4.30-5.90) m/uL Hct 38.7 L (39.0-53.0) % Plt Count 148 L (150-450) k/uL Chloride 111 H (98-107) mmol/L Carbon Dioxide 19 L (22-30) mmol/L Creatinine (0.66-1.25) mg/dL Glucose (74-99) mg/dL POC Glucose (mg/dL) 123 H (75-99) mg/dL Triglycerides 271 H (<150) mg/dL Assessment and Plan Assessment: Chest pain with history of CAD post multiple stents Hypertension Diabetes mellitus Dyslipidemia Troponins have been less than 0.0123 with EKG showing normal sinus rhythm and T-wave abnormalities. Acute coronary syndrome has been ruled out. Gallbladder ultrasound is negative for cholelithiasis. Cardiology was consulted and their plans for cardiac catheterization today. Patient to be continued on aspirin, Plavix and Lipitor. Follow-up with echocardiogram. Continue telemetry monitoring. His blood pressure is 146/60. We will continue beta padmini. Continue ANGEL inhibitor. Monitor vitals, adjust medications as necessary. Continue insulin sliding scale for diabetes mellitus. Lipid panel shows elevated triglyceride 271. Continue Lipitor for dyslipidemia. [Patient admitted for chest pain. ACS ruled out. Plans for cardiac catheterization today. Likely DC 1-2 days.]
[2019-12-06 16:31] LABS: Glucose,Whole Blood 245 mg/dL (75-99)
[2019-12-06] MEDS ORDERED: LIDOCAINE 1% INJ 10MG/ML (20 ML MDV) ONE (17:13)
[2019-12-06] MEDS ORDERED: fentaNYL (PF) 50 MCG/ML 2 ML AMP ONE (17:23)
[2019-12-06] MEDS ORDERED: LIDOCAINE 1% INJ 10MG/ML (20 ML MDV) SQ ONE (17:28)
[2019-12-06] MEDS ORDERED: fentaNYL (PF) 50 MCG/ML 2 ML AMP IVP ONE (17:28)
[2019-12-06] MEDS ORDERED: MIDAZOLAM 2 MG/2 ML VIAL IVP ONE (17:28)
[2019-12-06] MEDS ORDERED: SODIUM CHLORIDE 0.9% 1,000 ML IV ONE (17:37)
[2019-12-06] MEDS ORDERED: IOPAMIDOL-370 125ML BTL INJ ONE (17:59)
[2019-12-06 20:24] LABS: Glucose,Whole Blood 184 mg/dL (75-99)
[2019-12-06] MEDS: ATORVASTATIN 40 MG TAB PO SCH ×2 (21:43)
[2019-12-07] MEDS: ATENOLOL 50 MG TAB PO SCH (00:23)
[2019-12-07] MEDS: NITROGLYCERIN OINT 1 INCH/GM PACKET TOPICAL SCH ×3 (01:43→17:00)
[2019-12-07] MEDS: HEPARIN SODIUM,PORCINE 5,000 UNIT/ML 1 ML VIAL SQ SCH ×3 (02:11→17:06)
[2019-12-07 06:46] LABS: Glucose,Whole Blood 166 mg/dL (75-99)
[2019-12-07 07:12] LABS: Basophils % (A) 1 %; Eosinophils # (A) 0.2 k/uL (0-0.7); Eosinophils % (A) 3 %; HCT 37.3 % (39.0-53.0); HGB 12.2 gm/dL (13.0-17.5); Lymphocytes # (A) 1.7 k/uL (1.0-4.8); Lymphocytes % (A) 27 %; MCH 32.1 pg (25.0-35.0); MCHC 32.7 g/dL (31.0-37.0); Mean Platelet Volume 7.4; Monocytes # (A) 0.4 k/uL (0-1.0); Monocytes % (A) 6 %; Neutrophils % (A) 61 %; Platelet Count 168 k/uL (150-450); RBC 3.81 m/uL (4.30-5.90); RDW 13.2 % (11.5-15.5); WBC 6.5 k/uL (3.8-10.6)
[2019-12-07 07:18] LABS: Albumin 3.6 g/dL (3.5-5.0); Calcium 8.9 mg/dL (8.4-10.2); Magnesium 1.6 mg/dL (1.6-2.3); Potassium 4.1 mmol/L (3.5-5.1); Total Bilirubin 0.6 mg/dL (0.2-1.3); Total Protein 6.1 g/dL (6.3-8.2)
[2019-12-07 08:06] VITALS: RESP 18
[2019-12-07] MEDS ORDERED: MD COMMUNICATION TO PHARMACY 1 EACH MISC PO ONE (08:17)
[2019-12-07 08:37] LABS: Appearance,Urine Clear (Clear); Bilirubin,Urine Negative (Negative); Blood,Urine Negative (Negative); Color,Urine Yellow; Glucose,Urine (UA) 4+ (Negative); Ketones,Urine Negative (Negative); Leukocyte Esterase,Urine Negative (Negative); Nitrite,Urine Negative (Negative); PH, Urine 5.5 (5.0-8.0); Protein,Urine Negative (Negative); Specific Gravity,Urine 1.023 (1.001-1.035); Urobilinogen,Urine <2.0 mg/dL (<2.0)
[2019-12-07] MEDS ORDERED: MUPIROCIN 2% OINT 22 GM TUBE NASAL SCH (09:00)
[2019-12-07] MEDS ORDERED: ASPIRIN 325 MG TAB PO SCH (09:00)
[2019-12-07] MEDS ORDERED: ALPRAZolam 0.25 MG TAB PO STA (09:07)
--- NOTE | 2019-12-07 09:10 | CC ---
Date of Procedure: 12/06/19 Preoperative Diagnosis: Unstable angina Postoperative Diagnosis: Triple-vessel disease Procedure(s) Performed: Left heart catheterization without left ventriculography Description of Procedure: HISTORY: This is a 51-year-old gentleman with history of ischemic heart disease with previous stent placement of the RCA was admitted to the hospital with recurrent chest pain size to of unstable angina. His cardiac enzymes studies are negative. Patient is advised to have a cardiac catheterization proceeded is any progression of ischemic heart disease. CONSENT:I have discussed the risks, benefits and alternative therapies for the above-mentioned procedure and for both sedation/analgesia as well as necessary blood product administration, if indicated, as they pertain to this patient. The patient has indicated understanding and acceptance of the risks and procedures discussed. [] PROCEDURE: Patient was brought to the lab in a fasting state. Patient was given some IV sedation. The right groin is infiltrated with lidocaine and right femoral artery was entered using Seldinger technique. A 6-Chinese catheter was left in place and selective coronary arteriography was performed. Patient tolerated the procedure well. Femoral angiogram was performed and Angio-Seal was applied for hemostasis. No immediate complications were noted and patient was transferred to [facility] in a stable condition Conscious Sedation: Versed 1mg Fentanyl 50 g Duration 19minutes HEMODYNAMICS: The aortic pressure is about 120/70. Left ankle end-diastolic pressure is 8-12. There was no gradient across the aortic valve SELECTIVE CORONARY ARTERIOGRAPHY: LEFT MAIN: Normal length with about 40-50% distal stenosis THE LEFT ANTERIOR DESCENDING CORONARY ARTERY:. This is a good caliber vessel with eccentric close to 70% stenosis proximally. It gives rise to moderate caliber diagonal branch the LAD diagonal branch is about 60-70% stenosis. THE LEFT CIRCUMFLEX AND IS CORONARY ARTERY: This is a moderate caliber vessel with a of moderate plaque beyond the origin of the first OM branch. Rest of the circumflex is free of any significant occlusive disease THE RIGHT CORONARY ARTERY:. This is totally occluded and at the ostium. There are collaterals from the left to the distal RCA LEFT VENTRICULOGRAPHY: Not performed FINAL IMPRESSION:, Coronary artery disease with total occlusion of the RCA moderate to severe disease involving the left main and also proximal LAD PLAN: Maximum medical therapy. Possible revascularization with bypass surgery to the LAD, circumflex and also the right coronary artery. Cardiac surgery consultation is obtained PROGNOSIS: Guarded MTDD
[2019-12-07] MEDS: INSULIN ASPART (NovoLOG) 100 UNIT/ML VIAL SQ SCH ×3 (09:30→17:05)
[2019-12-07] MEDS: PANTOPRAZOLE 40 MG TABLET PO SCH (09:31)
--- NOTE | 2019-12-07 09:31 | CT ---
EXAMINATION TYPE: CT chest wo con DATE OF EXAM: 12/07/2019 COMPARISON: NONE HISTORY: Chest pain, evaluate ascending thoracic aortic calcifications. History of cardiac stent, monique endectomy, back surgery, lithotripsy and rotator cuff repair. CT DLP: 546.8 mGycm. Automated Exposure Control for Dose Reduction was Utilized. TECHNIQUE: CT scan of the thorax is performed without IV contrast. FINDINGS: LUNGS: The lungs are grossly clear, there is no concerning parenchymal mass or nodule identified. Ca lcified granuloma is benign along the left interlobar fissure. Linear scarring is seen within the ant erior right upper lobe. There is no pleural effusion or pneumothorax seen. The tracheobronchial tree is patent. MEDIASTINUM: Coronary artery stents are seen. There is no significant ascending thoracic aortic calci fication however minimal atherosclerosis is seen in the aortic arch and mild degree in the descending thoracic aorta. Severe atherosclerosis of the visualized abdominal aorta particularly at the renal a rtery ostia. Lack of IV contrast is noted to limit evaluation for mediastinal and especially hilar ad enopathy. There are no definitive greater than 1 cm hilar or mediastinal lymph nodes. Heart is mildl y enlarged. No pericardial effusion is seen. Ascending thoracic aorta is within normal limits of size r measuring 3.7 cm as is the descending thoracic aorta measuring 2.9 cm. Main pulmonary artery is als o within normal limits measuring 2.7 cm. OTHER: There are numerous bilateral renal calculi. There is moderate left hydronephrosis with high de nsity in the left renal collecting system. Correlate for any recent intravenous contrast administrati on alternatively this could represent hemorrhage or protein. The largest calculus on the right measur es 1.2 cm. Cholelithiasis is seen. Moderate degenerative change of the spine. IMPRESSION: 1. No significant ascending thoracic aortic atherosclerosis. Minimal atherosclerosis of the aortic ar ch and mild of the descending thoracic aorta with severe atherosclerosis of the upper abdominal aorta , particularly near the renal ostia bilaterally. 2. Moderate left-sided hydronephrosis with high density material in the collecting system. Correlate for any recent intravenous contrast administration. Alternatively high density could represent hemorr reyes or protein. 3. Mild cardiomegaly and coronary artery stents seen.
[2019-12-07] MEDS: TAMSULOSIN 0.4 MG CAP.ER.24H PO SCH (09:32)
[2019-12-07] MEDS: ISOSORBIDE MONONITRATE ER 60 MG TAB.ER.24H PO SCH (09:32)
[2019-12-07] MEDS: LISINOPRIL 10 MG TAB PO SCH (09:32)
--- NOTE | 2019-12-07 10:41 | US ---
EXAMINATION TYPE: US carotid duplex BILAT DATE OF EXAM: 12/07/2019 COMPARISON: NONE CLINICAL HISTORY: Pre-Op Cardiac Surgery. EXAM MEASUREMENTS: RIGHT: Peak Systolic Velocity (PSV) cm/sec ----- Right CCA: 69.7 ----- Right ICA: 123.5 ----- Right ECA: 78.4 ICA/CCA ratio: 1.8 RIGHT: End Diastole cm/sec ----- Right CCA: 11.5 ----- Right ICA: 21.7 ----- Right ECA: 5.7 LEFT: Peak Systolic Velocity (PSV) cm/sec ----- Left CCA: 84.5 ----- Left ICA: 89.8 ----- Left ECA: 71.3 ICA/CCA ratio: 1.1 LEFT: End Diastole cm/sec ----- Left CCA: 13.1 ----- Left ICA: 23.7 ----- Left ECA: 10.4 VERTEBRALS (direction of flow): Right Vertebral: Antegrade Left Vertebral: Antegrade Rhythm: Normal Moderate amount of plaque visualized bilaterally. No elevated velocities Some intimal thickening is noted. IMPRESSION: 1. Atheromatous plaquing within the left carotid bulb. No significant flow-limiting stenosis. 2. There is intimal thickening present bilaterally. 3. Atheromatous plaquing is within the right carotid bifurcation with velocities suggesting narrowing approaching 50%. Significant flow-limiting stenosis is not identified. Criteria for Assigning % of Stenosis / Diameter reduction (Estimation based on the indirect measurements of the internal carotid artery velocities (ICA PSV). 1. Normal (no stenosis)=ICA PSV < 125 cm/s: ratio < 2.0: ICA EDV<40 cm/s. 2. Less than 50% stenosis=ICA PSV < 125 cm/s: ratio < 2.0: ICA EDV<40 cm/s. 3. 50 to 69% stenosis=ICA PSV of 125 to 230 cm/s: ration 2.0 ? 4.0: ICA EDV 40-100 cm/s. 4. Greater than 70% stenosis to near occlusion= ICA PSV > 230 cm/s: ratio > 4.0: ICA EDV > 100 cm/s. 5. Near occlusion= ICA PSV velocities may be low or undetectable: variable ratio and ICA EDV. 6. Total occlusion=unable to detect flow.
[2019-12-07 11:38] LABS: Glucose,Whole Blood 194 mg/dL (75-99)
--- NOTE | 2019-12-07 11:55 | P.PN ---
Subjective HISTORY OF PRESENTING ILLNESS This is a pleasant 69-year-old male past medical history significant for coronary artery disease s/p multiple PCI's, dyslipidemia, hypertension, diabetes mellitus, chronic kidney stones arctic systolic heart failure, ischemic cardiomyopathy and arthritis. He follows in the office with Dr. West. He underwent cardiac catheterization via the right femoral artery yesterday revealing a 40-50% distal stenosis of the left main, LAD with a 70% proximal stenosis, diagonal branch with about 60-70% stenosis, circumflex with a moderate plaque beyond the origin of the first OM otherwise free of significant disease, RCA totally occluded at the ostium with collaterals from the left to the distal RCA. He has been seen in consultation by Dr. Badillo and plan is for bypass grafting next week. Blood pressure 119/64 heart rate 59 afebrile maintaining oxygen saturation on room air. Laboratory data reviewed, WBC 6.5, hemoglobin 12.2, platelets 168, sodium 140, potassium 4.1, creatinine 1.04, magnesium 1.6 and TSH 2.34. He is in the process of undergoing previous surgical testing. He denies active chest pain, shortness of breath, dizziness or palpitations. Currently maintained on aspirin [address] surgery, atenolol 50 mg at bedtime, atorvastatin 40 mg daily, Imdur 60 mg daily, lisinopr il 10 mg daily. His Plavix and Ranexa have been discontinued. PHYSICAL EXAMINATION CONSTITUTIONAL: No apparent distress. HEENT: Head is normocephalic. Pupils are equal, round. Sclerae anicteric. Mucous membranes of the mouth are moist. No JVD. No carotid bruit. CHEST EXAMINATION: Lungs are clear to auscultation. No chest wall tenderness is noted on palpation or with deep breathing. HEART EXAMINATION: Regular rate and rhythm. S1, S2 heard. No murmurs, gallops or rub. EXTREMITIES: 2+ peripheral pulses, no lower extremity edema and no calf tenderness. Right femoral access site clean, dry and intact with no evidence of ecchymosis, hematoma or swelling. ASSESSMENT Chest pain Exertional dyspnea Chronic systolic heart failure, currently euvolemic Ischemic cardiomyopathy Hypertension Dyslipdiemia Diabetes mellitus PLAN Stable for discharge when cleared by CT surgery and pre-op testing is complete. Plavix to be discontinued per CT surgery on discharge. Nurse Practitioner note has been reviewed, I agree with a documented findings and plan of care. Patient was seen and examined. Objective - Vital Signs Vital signs: Vital Signs Temp 97.9 F 12/07/19 08:00 Pulse 59 L 12/07/19 08:00 Resp 18 12/07/19 08:00 BP 119/64 12/07/19 08:00 Pulse Ox 97 12/07/19 08:00 Intake & Output 12/06/19 12/07/19 12/07/19 18:59 06:59 18:59 Intake Total 322 720 340 Balance 322 720 340 Intake: IV 100 Oral 222 720 240 Other 100 Other: Voiding Method Toilet Toilet # Voids 1 - Labs CBC & Chem 7: 12/07/19 06:41 12/07/19 06:41 Labs: Abnormal Lab Results - Last 24 Hours (Table) 12/06/19 12/06/19 12/07/19 Range/Units 16:29 20:22 06:41 RBC 3.81 L (4.30-5.90) m/uL Hgb 12.2 L (13.0-17.5) gm/dL Hct 37.3 L (39.0-53.0) % Chloride (98-107) mmol/L Carbon Dioxide (22-30) mmol/L Glucose (74-99) mg/dL POC Glucose (mg/dL) 245 H 184 H (75-99) mg/dL Total Protein (6.3-8.2) g/dL Urine Glucose (UA) (Negative) 12/07/19 12/07/19 12/07/19 Range/Units 06:41 06:42 08:20 RBC (4.30-5.90) m/uL Hgb (13.0-17.5) gm/dL Hct (39.0-53.0) % Chloride 113 H (98-107) mmol/L Carbon Dioxide 21 L (22-30) mmol/L Glucose 152 H (74-99) mg/dL POC Glucose (mg/dL) 166 H (75-99) mg/dL Total Protein 6.1 L (6.3-8.2) g/dL Urine Glucose (UA) 4+ H (Negative) 12/07/19 Range/Units 11:36 RBC (4.30-5.90) m/uL Hgb (13.0-17.5) gm/dL Hct (39.0-53.0) % Chloride (98-107) mmol/L Carbon Dioxide (22-30) mmol/L Glucose (74-99) mg/dL POC Glucose (mg/dL) 194 H (75-99) mg/dL Total Protein (6.3-8.2) g/dL Urine Glucose (UA) (Negative) Microbiology - Last 24 Hours (Table) 12/07/19 02:15 Nasal Screen MRSA/MSSA - Preliminary Nasal Swab
[2019-12-07 12:00] VITALS: BP 152/66; PULSE 55; TEMP 98.1
--- NOTE | 2019-12-07 12:25 | P.DS ---
Providers Date of admission: 12/07/19 09:13 Expected date of discharge: 12/07/19 Attending physician: Gareth Coleman MD Consults: 12/05/19 21:21 Consult Physician Urgent Consulting Provider: Luis Felipe Pritchett Consult Reason/Comments: cp Do you want consulting provider notified?: Yes 12/07/19 08:35 Consult Physician Routine Consulting Provider: Yousuf Ramirez Consult Reason/Comments: open heart Do you want consulting provider notified?: Already Contacted Primary care physician: [facility] Course: 69-year-old male with PMH of CAD post multiple stents, diabetes mellitus, hypertension and dyslipidemia presented to the ED for worsening chest pain. Troponins were less than 0.0123 with EKG showing normal sinus rhythm with T- wave abnormalities. Acute coronary syndrome was ruled out. Chest x-ray showed no acute process. Gallbladder ultrasound showed no dilated ducts. Cardiology was consulted and recommended cardiac catheterization. Cardiac catheterization showed 40-50% distal stenosis of the left main, 70% stenosis of the left anterior descending, 60-70% of the LAD diagonal, total occlusion of the right coronary artery. Cardiology recommended cardiothoracic evaluation. Cardiothoracic surgery was consulted and multiple preoperative imaging was ordered. Patient was seen and examined. No acute events overnight. Patient reports feeling anxious and having to undergo open heart surgery. He reports vague chest pain that is continued. He denies any shortness of breath or palpitations. No nausea or vomiting. No fever or chills. Requesting med ication for anxiety. General: [non toxic], [no distress], [appears at stated age] Derm: [warm], [dry] Head: [atraumatic], [normocephalic], [symmetric] Eyes: [EOMI], [no lid lag], [anicteric sclera] Mouth: [no lip lesion], [mucus membranes moist] Cardiovascular: [S1S2 reg], [no murmur], [positive posterior tibial pulse bilateral], Lungs: [CTA bilateral], [no rhonchi, no rales] , [no accessory muscle use] Abdominal: [soft], [ nontender to palpation], [no guarding], [no appreciable organomegaly] Ext: [no gross muscle atrophy], [no edema], [no contractures] Neuro: [no focal neuro deficits] Psych: [Alert], [oriented], [appropriate affect] Chest pain with history of CAD post multiple stents Hypertension Diabetes mellitus Dyslipidemia Troponins have been less than 0.0123 with EKG showing normal sinus rhythm and T-wave abnormalities. Acute coronary syndrome has been ruled out. Gallbladder ultrasound is negative for cholelithiasis. Cardiac catheterization shows multivessel disease as described above. Patient to be continued on aspirin, Lipitor. Plavix to be discontinued on discharge. Cardiothoracic surgery was consulted and preoperative imaging studies are ordered. His blood pressure is 152/66. We will continue beta padmini. Continue ANGEL inhibitor. Monitor vitals, adjust medications as necessary. Continue insulin sliding scale for diabetes mellitus. Lipid panel shows elevated triglyceride 271. Continue Lipitor for dyslipidemia. [Patient admitted for chest pain. ACS ruled out. Plans for cardiothoracic evaluation. Preoperative imaging ordered. Will discuss with cardiothoracic surgery regarding plans for CABG. Likely DC today depending on cardiothoracic plans.] Pertinent Studies: Chest x-ray, gallbladder ultrasound, upper extremity and lower extremity duplex, chest CT, carotid Doppler Procedures: Cardiac catheterization Plan - Discharge Summary Discharge Rx Participant: No New Discharge Prescriptions: No Action glipiZIDE [Glucotrol XL] 10 mg PO BID Mometasone Furoate [Nasonex Nasal [place]] 2 spray EA NOSTRIL HS Lisinopril [Zestril] 10 mg PO DAILY Atorvastatin [Lipitor] 40 mg PO HS Atenolol [Tenormin] 50 mg PO DAILY Acarbose [Precose] 50 mg PO TID ALPRAZolam [Xanax] 0.25 mg PO Q8H PRN PRN Reason: Anxiety metFORMIN HCL [Glucophage] 1,000 mg PO BID Nitroglycerin Sl Tabs [Nitrostat] 0.4 mg SUBLINGUAL Q5M PRN #25 tab PRN Reason: Chest Pain Isosorbide Mononitrate ER [Imdur] 60 mg PO DAILY #30 tab Aspirin EC [Ecotrin Low Dose] 81 mg PO DAILY Tamsulosin HCl [Flomax] 0.8 mg PO DAILY Clopidogrel [Plavix] 75 mg PO DAILY Empagliflozin [Jardiance] 10 mg PO DAILY Esomeprazole Magnesium [NexIUM] 20 mg PO DAILY HYDROcodone/APAP 10-325MG [[place] 10-325] 1 tab PO TID PRN PRN Reason: Pain Ranolazine [Ranexa] 1,000 mg PO BID Discharge Medication List ALPRAZolam [Xanax] 0.25 mg PO Q8H PRN 05/31/14 [History] Acarbose [Precose] 50 mg PO TID 05/31/14 [History] Atenolol [Tenormin] 50 mg PO DAILY 05/31/14 [History] Atorvastatin [Lipitor] 40 mg PO HS 05/31/14 [History] Lisinopril [Zestril] 10 mg PO DAILY 05/31/14 [History] Mometasone Furoate [Nasonex Nasal [place]] 2 spray EA NOSTRIL HS 05/31/14 [History] glipiZIDE [Glucotrol XL] 10 mg PO BID 05/31/14 [History] metFORMIN HCL [Glucophage] 1,000 mg PO BID 10/25/17 [History] Nitroglycerin Sl Tabs [Nitrostat] 0.4 mg SUBLINGUAL Q5M PRN #25 tab 10/28/17 [Rx] Isosorbide Mononitrate ER [Imdur] 60 mg PO DAILY #30 tab 03/16/18 [Rx] Aspirin EC [Ecotrin Low Dose] 81 mg PO DAILY 03/23/18 [History] Tamsulosin HCl [Flomax] 0.8 mg PO DAILY 03/23/18 [History] Clopidogrel [Plavix] 75 mg PO DAILY 03/12/19 [History] Empagliflozin [Jardiance] 10 mg PO DAILY 03/18/19 [History] Esomeprazole Magnesium [NexIUM] 20 mg PO DAILY 12/06/19 [History] HYDROcodone/APAP 10-325MG [[place] 10-325] 1 tab PO TID PRN 12/06/19 [History] Ranolazine [Ranexa] 1,000 mg PO BID 12/06/19 [History] Follow up Appointment(s)/Referral(s): Yousuf Ramirez MD [STAFF PHYSICIAN] - 1 Week Arabella Jacome MD [Primary Care Provider] - 1-2 days
[2019-12-07 15:21] LABS: Hepatitis A Antibody IgM Non-Reactive (Non-Reactive); Hepatitis B Core IgM Non-Reactive (Non-Reactive); Hepatitis B Surface Antigen Non-Reactive (Non-Reactive); Hepatitis C IgG Antibody Non-Reactive (Non-Reactive)
--- NOTE | 2019-12-07 15:45 | P.GSCN ---
History of Present Illness Consult date: 12/07/19 Reason for Consult: Coronary artery disease Requesting physician: Kevon West History of present illness: This is a 69-year-old gentleman who follows on an outpatient basis with Dr. Arabella Jacome. He has a previous medical history of coronary artery disease with previous PCI greater than 10 years ago, chronic systolic heart failure with EF 40-45% on echocardiogram in 2018, hypertension, hyperlipidemia, diabetes, bladder cancer greater than 5 years ago with resection but without chemo or radiation, skin cancer with removal, umbilical hernia, and family history of heart disease including brother who had open heart surgery at less than 60 years old. His last heart catheterization was in September 2018 which revealed patent stents to the RCA as well as the diagonal branch. This gentleman presented to [facility] emergency room with complaints of worsening chest pain and shortness of breath. Initially the pain occurred more with exertion, however over the last couple of days it began occurring at rest. He did have associated nausea but no other aggravating or alleviating symptoms. Chest x-ray was completed demonstrate no acute process. EKG showed sinus rhythm with no acute ischemic changes. First troponin was negative. He was admitted for evaluation and treatment with consultation placed to cardiology. He was recommended to undergo heart catheterization which was completed yesterday and which demonstrated left main stenosis 40-50% distally, proximal LAD stenosis 70%, diagonal branch with 60-70% stenosis, total occlusion at the ostium of the RCA with collaterals from the left side to the distal RCA. Due to these findings consultation was placed to Dr. Ramirez surgical revascularization recommendations. Review of Systems Review of systems was completed and was negative except as noted - Cardiovascular Reports chest pain, Reports decreased exercise tolerance, Reports dyspnea on exertion - Gastrointestinal Reports nausea Past Medical History Past Medical History: Coronary Artery Disease (CAD), Cancer, Chest Pain / Angina, Diabetes Mellitus, GERD/Reflux, Hyperlipidemia, Hypertension, Myocardial Infarction (PA), Osteoarthritis (OA), Prostate Disorder, Skin Disorder Additional Past Medical History / Comment(s): Hx. KIDNEY STONES, SOB on exertion with chest pain, dry skin, hx bladder cancer. Last Myocardial Infarction Date:: 2004 History of Any Multi-Drug Resistant Organisms: None Reported Past Surgical History: Appendectomy, Back Surgery, Ear Surgery, Heart Catheterization, Heart Catheterization With Stent, Orthopedic Surgery Additional Past Surgical History / Comment(s): METAL SCREWS IN BACK, Hx. RIGHT EAR TUBE/, EPIDURAL PAIN SHOTS, previous stents 2004,2006, LITHOTRIPSY, rt shoulder rotator cuff, colonoscopy. Past Anesthesia/Blood Transfusion Reactions: No Reported Reaction Date of Last Stent Placement:: 05/2014 Past Psychological History: Anxiety Smoking Status: Never smoker Past Alcohol Use History: Rare Past Drug Use History: None Reported - Past Family History Father Family Medical History: Cancer Additional Family Medical History / Comment(s): BRAIN Mother Family Medical History: Chest Pain / Angina, Coronary Artery Disease (CAD), [place], Diabetes Mellitus, Hyperlipidemia, Hypertension, Respiratory Disorder Additional Family Medical History / Comment(s): CABG quadruple bypass (No PA), ruptured colon Brother(s) Family Medical History: Coronary Artery Disease (CAD) Additional Family Medical History / Comment(s): Brother had CABG recently at less than 60 years of age Medications and Allergies Home Medications Medication Instructions Recorded Confirmed Type ALPRAZolam [Xanax] 0.25 mg PO Q8H PRN 05/31/14 12/06/19 History Acarbose [Precose] 50 mg PO TID 05/31/14 12/06/19 History Atenolol [Tenormin] 50 mg PO DAILY 05/31/14 12/06/19 History Atorvastatin [Lipitor] 40 mg PO HS 05/31/14 12/06/19 History Lisinopril [Zestril] 10 mg PO DAILY 05/31/14 12/06/19 History Mometasone Furoate [Nasonex Nasal 2 spray EA NOSTRIL HS 05/31/14 12/06/19 History [place]] glipiZIDE [Glucotrol XL] 10 mg PO BID 05/31/14 12/06/19 History metFORMIN HCL [Glucophage] 1,000 mg PO BID 10/25/17 12/06/19 History Isosorbide Mononitrate ER [Imdur] 60 mg PO DAILY #30 tab 03/16/18 12/06/19 Rx Tamsulosin HCl [Flomax] 0.8 mg PO DAILY 03/23/18 12/06/19 History Empagliflozin [Jardiance] 10 mg PO DAILY 03/18/19 12/06/19 History Esomeprazole Magnesium [NexIUM] 20 mg PO DAILY 12/06/19 12/06/19 History HYDROcodone/APAP 10-325MG [Sharples 1 tab PO TID PRN 12/06/19 12/06/19 History 10-325] Ranolazine [Ranexa] 1,000 mg PO BID 12/06/19 12/06/19 History Aspirin 325 mg PO DAILY #90 tab 12/07/19 Rx Nitroglycerin Sl Tabs [Nitrostat] 0.4 mg SUBLINGUAL Q5M PRN #25 tab 12/07/19 Rx Allergies Allergy/AdvReac Type Severity Reaction Status Date / Time No Known Allergies Allergy Verified 12/06/19 10:37 Surgical - Exam Vital Signs Temp Pulse Resp BP Pulse Ox 97.4 F L 63 16 162/82 99 12/05/19 18:52 12/05/19 18:52 12/05/19 18:52 12/05/19 18:52 12/05/19 18:52 - General well developed, well nourished, no distress, no pain - Eyes PERRL, normal ocular movement - ENT no hearing loss - Neck no masses, no bruits, trachea midline - Respiratory Lungs sounds clear bilaterally. Respirations even, nonlabored. Currently on room air with oxygen saturation 96%. No chest wall deformities. No clubbing or cyanosis present. - Cardiovascular S1, S2 present. Regular rate and rhythm, sinus rhythm on telemetry. Palpable peripheral pulses bilaterally. No edema present. No calf pain or tenderness noted. No varicosities noted to bilateral lower extremities. - Abdomen Abdomen: soft, non tender, bowel sounds - Genitourinary Deferred - Rectum Deferred - Integumentary no rash, no growths, no abnormal pigmentation - Neurologic normal coordination, normal sensation - Musculoskeletal normal gait, normal posture - Psychiatric oriented to time, oriented to person, oriented to place, speech is normal, memory intact Results - Labs 12/07/19 06:41 12/07/19 06:41 Abnormal Lab Results - Last 24 Hours (Table) 12/06/19 12/06/19 12/07/19 Range/Units 16:29 20:22 06:41 RBC 3.81 L (4.30-5.90) m/uL Hgb 12.2 L (13.0-17.5) gm/dL Hct 37.3 L (39.0-53.0) % Chloride (98-107) mmol/L Carbon Dioxide (22-30) mmol/L Glucose (74-99) mg/dL POC Glucose (mg/dL) 245 H 184 H (75-99) mg/dL Total Protein (6.3-8.2) g/dL Urine Glucose (UA) (Negative) 12/07/19 12/07/19 12/07/19 Range/Units 06:41 06:42 08:20 RBC (4.30-5.90) m/uL Hgb (13.0-17.5) gm/dL Hct (39.0-53.0) % Chloride 113 H (98-107) mmol/L Carbon Dioxide 21 L (22-30) mmol/L Glucose 152 H (74-99) mg/dL POC Glucose (mg/dL) 166 H (75-99) mg/dL Total Protein 6.1 L (6.3-8.2) g/dL Urine Glucose (UA) 4+ H (Negative) 12/07/19 Range/Units 11:36 RBC (4.30-5.90) m/uL Hgb (13.0-17.5) gm/dL Hct (39.0-53.0) % Chloride (98-107) mmol/L Carbon Dioxide (22-30) mmol/L Glucose (74-99) mg/dL POC Glucose (mg/dL) 194 H (75-99) mg/dL Total Protein (6.3-8.2) g/dL Urine Glucose (UA) (Negative) Microbiology - Last 24 Hours (Table) 12/07/19 02:15 Nasal Screen MRSA/MSSA - Preliminary Nasal Swab Diabetes panel 12/07/19 Range/Units 06:41 Sodium 140 (137-145) mmol/L Potassium 4.1 (3.5-5.1) mmol/L Chloride 113 H (98-107) mmol/L Carbon Dioxide 21 L (22-30) mmol/L BUN 13 (9-20) mg/dL Creatinine 1.04 (0.66-1.25) mg/dL Glucose 152 H (74-99) mg/dL Calcium 8.9 (8.4-10.2) mg/dL AST 29 (17-59) U/L ALT 23 (4-49) U/L Alkaline Phosphatase 50 (38-126) U/L Total Protein 6.1 L (6.3-8.2) g/dL Albumin 3.6 (3.5-5.0) g/dL Thyroid panel 12/07/19 Range/Units 06:41 TSH 2.340 (0.465-4.680) mIU/L Calcium panel 12/07/19 Range/Units 06:41 Calcium 8.9 (8.4-10.2) mg/dL Albumin 3.6 (3.5-5.0) g/dL Pituitary panel 12/07/19 Range/Units 06:41 Sodium 140 (137-145) mmol/L Potassium 4.1 (3.5-5.1) mmol/L Chloride 113 H (98-107) mmol/L Carbon Dioxide 21 L (22-30) mmol/L BUN 13 (9-20) mg/dL Creatinine 1.04 (0.66-1.25) mg/dL Glucose 152 H (74-99) mg/dL Calcium 8.9 (8.4-10.2) mg/dL TSH 2.340 (0.465-4.680) mIU/L Adrenal panel 12/07/19 Range/Units 06:41 Sodium 140 (137-145) mmol/L Potassium 4.1 (3.5-5.1) mmol/L Chloride 113 H (98-107) mmol/L Carbon Dioxide 21 L (22-30) mmol/L BUN 13 (9-20) mg/dL Creatinine 1.04 (0.66-1.25) mg/dL Glucose 152 H (74-99) mg/dL Calcium 8.9 (8.4-10.2) mg/dL Total Bilirubin 0.6 (0.2-1.3) mg/dL AST 29 (17-59) U/L ALT 23 (4-49) U/L Alkaline Phosphatase 50 (38-126) U/L Total Protein 6.1 L (6.3-8.2) g/dL Albumin 3.6 (3.5-5.0) g/dL - Imaging Chest x-ray: report reviewed, image reviewed CT scan - chest: report reviewed, image reviewed EKG: image reviewed Additional studies: Heart catheterization films reviewed with Dr. Ramirez and Dr. West Assessment and Plan Assessment: 1. Coronary artery disease, previous PCI's 2. Chronic systolic heart failure with EF 4045% on echo from 2018 3. Hypertension 4. Hyperlipidemia 5. Diabetes 6. Bladder cancer status post resection, without chemo or radiation 7. Skin cancer with removal 8. Umbilical hernia 9. Family history of heart disease Plan: The patient was seen and examined at the bedside with Dr. Ramirez. Chart/diagnostics were reviewed, including heart catheterization films which were reviewed with Dr. Ramirez and Dr. West. Our recommendation is for coronary artery bypass graft surgery. The usual perioperative course was discussed in detail with the patient, risks and benefits reviewed, all questions were answered, the patient did agree to proceed with surgery. Preoperative testing was initiated. We will calculate an STS risk score and discuss with the patient. We recommend continuing aspirin, statin, beta padmini therapy. Hold Plavix as patient will need to be off Plavix for 5-7 days prior to surgery The patient may be discharged to home once all preoperative testing has been completed to return next week for surgery on an elective basis. We will call the patient with surgery date and time. This was discussed with the patient as well as cardiology and all are in agreement. Thank you for allowing us to participate in the care of this patient. Please call us with any further questions. Time with Patient: Greater than 30
[2019-12-07 16:34] LABS: Glucose,Whole Blood 227 mg/dL (75-99)
--- NOTE | 2019-12-08 09:40 | ECHOF ---
Referral Reason:cp MEASUREMENTS -------- HEIGHT: 172.7 cm WEIGHT: 85.3 kg BP: 160/80 RVIDd: 2.9 cm (< 3.3) IVSd: 1.5 cm (0.6 - 1.1) LVIDd: 4.9 cm (3.9 - 5.3) LVPWd: 1.4 cm (0.6 - 1.1) IVSs: 1.8 cm LVIDs: 3.8 cm LVPWs: 1.3 cm LAESV Index (A-L): 31.17 ml/m Ao Diam: 3.4 cm (2.0 - 3.7) AV Cusp: 2.3 cm (1.5 - 2.6) LA Diam: 4.6 cm (2.7 - 3.8) MV EXCURSION: 21.518 mm (> 18.000) MV EF SLOPE: 92 mm/s (70 - 150) EPSS: 0.5 cm MV E Jae: 0.59 m/s MV DecT: 326 ms MV A Jae: 0.58 m/s MV E/A Ratio: 1.02 RAP: 5.00 mmHg RVSP: 13.29 mmHg FINDINGS -------- Sinus rhythm. This was a technically difficult study with suboptimal views. The left ventricular size is normal. There is moderate concentric left ventricular hypertrophy. O verall left ventricular systolic function is mildly impaired with, an EF between 45 - 50 %. Basal i nferoseptal LV wall motion is normal. The right ventricle is normal in size. The left atrial size is normal. Normal LA size by volume 22+/-6 ml/m2. The right atrial size is normal. Lumason used The aortic valve is trileaflet and appears structurally normal. The mitral valve is normal. The mitral valve leaflets are mildly thickened. Mild mitral regurgita tion is present. The tricuspid valve appears structurally normal. Mild tricuspid regurgitation present. Right vent ricular systolic pressure is normal at < 35 mmHg. There is no pulmonic regurgitation present. The aortic root size is normal. IVC Not well visulized. There is no pericardial effusion. CONCLUSIONS -------- 1. Sinus rhythm. 2. This was a technically difficult study with suboptimal views. 3. The left ventricular size is normal. 4. There is moderate concentric left ventricular hypertrophy. 5. Overall left ventricular systolic function is mildly impaired with, an EF between 45 - 50 %. 6. Basal inferoseptal LV wall motion is normal. 7. The right ventricle is normal in size. 8. The left atrial size is normal. 9. Normal LA size by volume 22+/-6 ml/m2. 10. The right atrial size is normal. 11. Lumason used 12. The aortic valve is trileaflet and appears structurally normal. 13. The mitral valve is normal. 14. The mitral valve leaflets are mildly thickened. 15. Mild mitral regurgitation is present. 16. The tricuspid valve appears structurally normal. 17. Mild tricuspid regurgitation present. 18. Right ventricular systolic pressure is normal at < 35 mmHg. 19. There is no pulmonic regurgitation present. 20. The aortic root size is normal. 21. IVC Not well visulized. 22. There is no pericardial effusion. DRYWALL SANDER: Thelma Young RDCS
--- NOTE | 2019-12-08 10:02 | P.ARTDOP ---
Arterial Doppler Bilateral radial artery study: Reason for study: Preop CABG Date of study: 12/07/2019 Findings: Radial and ulnar arteries were not compressible for segmental pressures. We could not get appropriate readings on plethysmography due to lack of compressibility of the radials. Imaging showed plaque bilaterally with arteries of otherwise good size. Impression: Radial artery do not appear to be usable based on severe plaque disease.
--- NOTE | 2019-12-08 10:07 | P.VSCSTY ---
Greater Saphenous Vein Mapping This is bilateral lower extremity greater saphenous vein mapping. Date of service: 12/07/2019 Vein quality and ultrasound appearance: We see no endoluminal thrombus or wall changes. Vein size groin right : 4.4 x 4.9 groin left: 4.5 x 3.8 High thigh right: 2.0 x 2.1 high thigh left: 3.4 x 3.9 Mid thigh right: 2.5 x 2.2 mid thigh left: 2.4 x 2.9 Above-knee right: 1.8 x 1.6 above- knee left: 2.5 x 2.7 Below knee right: 1.4 x 1.8 below-knee left: 2.1 x 2.3 Mid calf right: 1.3 x 1.6 mid calf left: 2.4 x 2.7 Ankle right: 1.6 x 1.8 ankle left: 1.8 x 2.9 Impression: Veins on both sides a rather small. The left is somewhat more consistently of adequate size from mid calf and above. From above the knee throughout below the right leg is probably too small for use as conduit. Clinical correlation recommended.
--- NOTE | 2019-12-08 10:21 | P.ARTDOP ---
Arterial Doppler LOWER EXTREMITY ARTERIAL DOPPLER: DATE OF SERVICE: 12/07/2019 Reason for study: Preop CABG. Doppler waveforms: Multiphasic bilaterally throughout. Pulse volume recording: []. Pressure gradients: Mild gradient only at the toe level. Ankle-brachial indices: Greater than 1 on the right and cannot occlude on the left. Toe brachial indices: 0.58 on the right, 0.44 on the left Impression: Suspect some element of calcific wall disease but perfusion into the toes appears to be near normal. Lower extremity circulatory status should not compromise and the proposed procedure. Clinical correlation recommended
== END 2019-12-07 18:50 | disposition home or self-care (01) | DRG 287 ==
LOC: EC 18:51 → 1SOBS 21:21 → OBSVTOIN 12-07 09:13
PROVIDERS: ADMIT Internal Medicine; ATTEND Internal Medicine
PROC: B2111ZZ Fluoroscopy of Multiple Coronary Arteries using Low Osmolar Contrast (ICD-10-PCS; 2019-12-06)
PROC: 4A023N7 Measurement of Cardiac Sampling and Pressure, Left Heart, Percutaneous Approach (ICD-10-PCS; principal; 2019-12-06 15:25)
DX: I25.110 Atherosclerotic heart disease of native coronary artery with unstable angina pectoris (principal); I50.22 Chronic systolic (congestive) heart failure; I25.82 Chronic total occlusion of coronary artery; I11.0 Hypertensive heart disease with heart failure; E78.5 Hyperlipidemia, unspecified; E11.9 Type 2 diabetes mellitus without complications; N42.9 Disorder of prostate, unspecified; M19.90 Unspecified osteoarthritis, unspecified site; K21.9 Gastro-esophageal reflux disease without esophagitis; F41.9 Anxiety disorder, unspecified; I25.5 Ischemic cardiomyopathy; K42.9 Umbilical hernia without obstruction or gangrene; I08.1 Rheumatic disorders of both mitral and tricuspid valves; N20.0 Calculus of kidney; I25.2 Old myocardial infarction; Z79.899 Other long term (current) drug therapy; Z79.82 Long term (current) use of aspirin; Z79.02 Long term (current) use of antithrombotics/antiplatelets; Z87.442 Personal history of urinary calculi; Z85.51 Personal history of malignant neoplasm of bladder; Z87.2 Personal history of diseases of the skin and subcutaneous tissue; Z90.49 Acquired absence of other specified parts of digestive tract; Z95.5 Presence of coronary angioplasty implant and graft; Z85.828 Personal history of other malignant neoplasm of skin; Z98.890 Other specified postprocedural states; Z83.3 Family history of diabetes mellitus; Z82.49 Family history of ischemic heart disease and other diseases of the circulatory system; Z80.8 Family history of malignant neoplasm of other organs or systems; Z83.6 Family history of other diseases of the respiratory system
CPT/HCPCS: 36415; 71046; 71250; 76705; 80048; 80053; 80061; 80074; 81003; 83036; 83735; 84443; 84484; 85025; 85379; 85610; 85730; 86850; 86900; 86901; 87070; 93005; 93306; 93458; 93880; 93923; 93930; 93970; 94150; 96374; 99285

== ENCOUNTER 2019-12-13 | Inpatient (IN) | payer MEDICARE, BC | END 2019-12-19 14:34 | disposition home health service (06) | DRG 235 | PROVIDERS: ADMIT Surgery | PROC: 02L70CK Occlusion of Left Atrial Appendage with Extraluminal Device, Open Approach (ICD-10-PCS; principal; 2019-12-13) | PROC: 02100Z9 Bypass Coronary Artery, One Artery from Left Internal Mammary, Open Approach (ICD-10-PCS; principal; 2019-12-13) | PROC: 5A1221Z Performance of Cardiac Output, Continuous (ICD-10-PCS; principal; 2019-12-13) | PROC: 06BQ4ZZ Excision of Left Saphenous Vein, Percutaneous Endoscopic Approach (ICD-10-PCS; principal; 2019-12-13) | PROC: 021209W Bypass Coronary Artery, Three Arteries from Aorta with Autologous Venous Tissue, Open Approach (ICD-10-PCS; principal; 2019-12-13) | PROC: 5A09457 Assistance with Respiratory Ventilation, 24-96 Consecutive Hours, Continuous Positive Airway Pressure (ICD-10-PCS; 2019-12-14) | CPT/HCPCS: 71045; 71046; 80048; 80053; 82330; 82805; 83036; 83735; 84132; 84484; 85025; 85027; 85520; 85610; 85730; 86850; 86891; 86900; 86901; 86920; 94640; 94660; 94667 ==

== ENCOUNTER → 2020-03-21 | Outpatient (CLI) | payer MEDICARE, BC ==
[2020-03-21 16:48] LABS: African American GFR (CKD) 71.1 (60.0-200.0); Albumin 4.4 g/dL (3.80-4.90); Anion Gap 8.7 mmol/L (4.00-12.00); BUN/Creat Ratio 16.67 Ratio (12.00-20.00); Calcium 9.4 mg/dL (8.7-10.3); Carbon Dioxide 25.3 mmol/L (21.6-31.8); Chol/HDL Ratio 4.38; Globulin 2.2 g/dL (1.6-3.3); LDL Cholesterol,Calculated 42.8 mg/dL (0.0-131.0); Non-African American GFR(CKD) 61.3 (60.0-200.0); Potassium 4.5 mmol/L (3.5-5.5); Total Bilirubin 0.5 mg/dL (0.3-1.2); Total Protein 6.6 g/dL (6.2-8.2); VLDL Calculation 65.2 mg/dL (5.00-40.00)
[2020-03-21 22:14] LABS: Hemoglobin A1C 6.7 % (4.0-6.0)
== END | disposition home or self-care (01) ==
LOC: LABWHC1 09:48
PROVIDERS: ATTEND Internal Medicine Cardiovascular Disease
DX: E11.65 Type 2 diabetes mellitus with hyperglycemia (principal); Z95.1 Presence of aortocoronary bypass graft
CPT/HCPCS: 36415; 80053; 80061; 83036

== ENCOUNTER → 2020-04-13 | Outpatient (CLI) | payer MEDICARE, BC ==
--- NOTE | 2020-04-13 14:53 | XR ---
EXAMINATION TYPE: XR KUB DATE OF EXAM: 04/13/2020 Comparison: 03/23/2018 Clinical History: 69-year-old male N20.0 Kidney stone Findings: Nondistended bowel gas pattern. Supine imaging limited for assessment of free air. Lower lumbar poste rior and interbody fusion changes. Scattered mild to moderate stool. Bilateral nephrolithiasis redemo nstrated. Approximately 3 calculi detected radiographically on the right measuring up to 1.3 cm. Appr oximately 7 on the left measuring up to 6 mm. Vascular calcifications in the pelvis. Impression: Bilateral nephrolithiasis measuring up to 1.3 cm on the right and 6 mm on the left.
== END | disposition home or self-care (01) ==
LOC: RADXRMAIN 13:11
PROVIDERS: ATTEND Urology
DX: N20.0 Calculus of kidney (principal)
CPT/HCPCS: 74018

== ENCOUNTER → 2021-02-26 | Outpatient (CLI) | payer MEDICARE, BC ==
--- NOTE | 2021-02-26 16:41 | US ---
EXAMINATION TYPE: US kidneys/renal and bladder DATE OF EXAM: 02/26/2021 COMPARISON: 12/06/2019 CLINICAL HISTORY: N28.9 chronic kidney disease. Abn labs EXAM MEASUREMENTS: Right Kidney: 13.2 x 5.3 x 5.8 cm Left Kidney: 12.0 x 4.5 x 6.0 cm Right Kidney: Multiple echogenic foci. Largest - upper pole 9 mm Left Kidney: Multiple echogenic foci. Largest -midpole 6 mm Bladder: distended, anechoic Bilateral ureteral Jets seen No evidence of hydronephrosis. IMPRESSION: 1. Multiple bilateral renal calculi, the largest at the right upper pole measuring 9 mm, and left mid pole measuring 6 mm, respectively. No hydronephrosis. 2. The urinary bladder is grossly unremarkable with bilateral ureteral jets seen.
== END | disposition home or self-care (01) ==
LOC: RADUSWWP 15:33
PROVIDERS: ATTEND Family Medicine
DX: N18.9 Chronic kidney disease, unspecified (principal); N20.0 Calculus of kidney
CPT/HCPCS: 76770

== ENCOUNTER → 2021-07-16 | Outpatient (CLI) | payer MEDICARE, BC ==
[2021-07-16 10:32] LABS: Appearance,Urine Clear (Clear); Bilirubin,Urine Negative (Negative); Blood,Urine Negative (Negative); Color,Urine Yellow; Glucose,Urine (UA) 4+ (Negative); Ketones,Urine Negative (Negative); Leukocyte Esterase,Urine Negative (Negative); Nitrite,Urine Negative (Negative); PH, Urine 5.5 (5.0-8.0); Protein,Urine Negative (Negative); Specific Gravity,Urine 1.022 (1.001-1.035); Urobilinogen,Urine <2.0 mg/dL (<2.0)
[2021-07-16 16:35] LABS: HGB 13.4 g/dL (13.0-17.0); MCH 32.1 pg (27.0-32.0); MCHC 32.7 g/dL (32.0-37.0); MCV 98.3 fL (80.0-97.0); Mean Platelet Volume 9.8 fL (9.5-12.2); Platelet Count 221 X 10*3/uL (140-440); RBC 4.17 X 10*6/uL (4.40-5.60); WBC 6.21 X 10*3/uL (4.50-10.00)
[2021-07-16 17:12] LABS: % Iron Saturation 21.4 (15.00-50.00); African American GFR (CKD) 45.4 (60.0-200.0); Albumin 4.4 g/dL (3.8-4.9); Albumin/Globulin Ratio 1.9 (1.60-3.17); Anion Gap 15.6 mmol/L (4.00-12.00); BUN/Creat Ratio 14.39 Ratio (12.00-20.00); Blood Urea Nitrogen 24.9 mg/dL (9.0-27.0); Calcium 9.9 mg/dL (8.7-10.3); Ferritin 83.2 ng/mL (22.0-322.0); Globulin 2.3 g/dL (1.6-3.3); Magnesium 1.7 mg/dL (1.5-2.4); Non-African American GFR(CKD) 39.1 (60.0-200.0); Phosphorus 3.4 mg/dL (2.4-5.1); Potassium 3.9 mmol/L (3.5-5.5); Total Bilirubin 0.4 mg/dL (0.30-1.20); Total Protein 6.7 g/dL (6.2-8.2); Uric Acid 4.8 mg/dL (3.7-8.7)
== END | disposition home or self-care (01) ==
LOC: LABWHC1 09:00
PROVIDERS: ATTEND Internal Medicine
DX: N18.31 Chronic kidney disease, stage 3a (principal)
CPT/HCPCS: 36415; 80053; 81003; 82043; 82306; 82570; 82728; 83540; 83550; 83735; 83970; 84100; 84550; 85027

== ENCOUNTER → 2021-08-22 | Outpatient (CLI) | payer MEDICARE, BC ==
--- NOTE | 2021-08-22 16:00 | US ---
EXAMINATION TYPE: US kidneys/renal and bladder DATE OF EXAM: 08/22/2021 COMPARISON: 02/26/2021 CLINICAL HISTORY: 70-year-old male N20.0 Calculus of kidney. Follow up kidney stones TECHNIQUE: Multiple sonographic images of the kidneys and bladder are obtained. FINDINGS: EXAM MEASUREMENTS: Right Kidney: 12.1 x 5.5 x 6.8 cm Left Kidney: 11.1 x 4.7 x 5.3 cm Right Kidney: 0.8cm echogenic focus superior pole Left Kidney: 0.8cm echogenic focus superior pole No hydronephrosis on either side. Bladder: No gross abnormality Bilateral Jets seen: right jet seen, left jet not seen IMPRESSION: No hydronephrosis. Nonobstructive 8 mm calculus on either side.
== END ==
LOC: RADUSWWP 12:58
PROVIDERS: ATTEND Internal Medicine
DX: N20.0 Calculus of kidney (principal)
CPT/HCPCS: 76770

== ENCOUNTER → 2022-01-31 | Outpatient (CLI) | payer MEDICARE, BC ==
[2022-01-31 14:39] LABS: ALT 24 U/L (10-49); AST 31 U/L (14-35); African American GFR (CKD) 37.8 (60.0-200.0); Albumin 4.3 g/dL (3.8-4.9); Albumin/Globulin Ratio 1.54 (1.60-3.17); Alkaline Phosphatase 41 U/L (41-126); BUN/Creat Ratio 13.15 Ratio (12.00-20.00); Blood Urea Nitrogen 26.3 mg/dL (9.0-27.0); Calcium 9.2 mg/dL (8.7-10.3); Chloride 107 mmol/L (96-109); Globulin 2.8 g/dL (1.6-3.3); Glucose 119 mg/dL (70-110); LDL Cholesterol,Calculated 98.4 mg/dL (0.0-131.0); Non-African American GFR(CKD) 32.6 (60.0-200.0); Potassium 4.1 mmol/L (3.5-5.5); Sodium 140 mmol/L (135-145); Total Protein 7.1 g/dL (6.2-8.2)
== END | disposition home or self-care (01) ==
LOC: LABWHC1 11:00
PROVIDERS: ATTEND Internal Medicine Endocrinology, Diabetes & Metabolism
DX: E11.65 Type 2 diabetes mellitus with hyperglycemia (principal)
CPT/HCPCS: 36415; 80053; 80061; 83036

== ENCOUNTER → 2022-03-19 | Outpatient (CLI) | payer MEDICARE, BC ==
[2022-03-19 14:38] LABS: HCT 38.4 % (39.6-50.0); HGB 12.4 g/dL (13.0-17.0); MCH 31.4 pg (27.0-32.0); MCHC 32.3 g/dL (32.0-37.0); MCV 97.2 fL (80.0-97.0); Mean Platelet Volume 10.3 fL (9.5-12.2); NRBC Per 100 WBC 0 /100 WBCS (0.0-0.0); Platelet Count 240 X 10*3/uL (140-440); RBC 3.95 X 10*6/uL (4.40-5.60); WBC 7.43 X 10*3/uL (4.50-10.00)
[2022-03-19 14:58] LABS: African American GFR (CKD) 44.1 (60.0-200.0); Albumin 4.6 g/dL (3.8-4.9); Albumin/Globulin Ratio 1.73 (1.60-3.17); Anion Gap 11.7 mmol/L (10.00-18.00); BUN/Creat Ratio 15.23 Ratio (12.00-20.00); Blood Urea Nitrogen 26.8 mg/dL (9.0-27.0); Calcium 9.8 mg/dL (8.7-10.3); Carbon Dioxide 23.8 mmol/L (20.0-27.5); Globulin 2.6 g/dL (1.6-3.3); Magnesium 1.7 mg/dL (1.5-2.4); Non-African American GFR(CKD) 38.1 (60.0-200.0); Phosphorus 3.2 mg/dL (2.4-5.1); Potassium 4.6 mmol/L (3.5-5.5); Total Bilirubin 0.5 mg/dL (0.30-1.20); Total Protein 7.2 g/dL (6.2-8.2)
[2022-03-19 19:53] LABS: Appearance,Urine Clear (Clear); Bilirubin,Urine Negative (Negative); Blood,Urine Negative (Negative); Color,Urine Yellow (Yellow); Ketones,Urine Negative (Negative); Nitrite,Urine Negative (Negative); PH, Urine 5.5 (5.0-8.0); Specific Gravity,Urine 1.023 (1.001-1.030)
[2022-03-19 21:28] LABS: Microalbumin Creatinine Ratio <30 mg/g Creat (0-30); Urine Creatinine 78.3 mg/dL (39.0-259.0)
== END | disposition home or self-care (01) ==
LOC: LABWHC1 10:05
PROVIDERS: ATTEND Nurse Practitioner Acute Care
DX: N18.31 Chronic kidney disease, stage 3a (principal)
CPT/HCPCS: 36415; 80053; 81003; 82043; 82306; 82570; 83735; 84100; 85027

== ENCOUNTER → 2022-06-19 | Outpatient (CLI) | payer MEDICARE, BC ==
[2022-06-19 16:16] LABS: HCT 39.4 % (39.6-50.0); HGB 12.7 g/dL (13.0-17.0); MCH 31.9 pg (27.0-32.0); MCHC 32.2 g/dL (32.0-37.0); Mean Platelet Volume 10.2 fL (9.5-12.2); NRBC Per 100 WBC 0 /100 WBCS (0.0-0.0); Platelet Count 232 X 10*3/uL (140-440); RBC 3.98 X 10*6/uL (4.40-5.60); RDW 13.5 % (11.5-14.5); WBC 7.73 X 10*3/uL (4.50-10.00)
[2022-06-19 16:47] LABS: % Iron Saturation 19.45 (15.00-50.00); ALT 25 U/L (10-49); AST 37 U/L (14-35); African American GFR (CKD) 35.6 (60.0-200.0); Albumin 4.5 g/dL (3.8-4.9); Albumin/Globulin Ratio 1.41 (1.60-3.17); Alkaline Phosphatase 42 U/L (41-126); BUN/Creat Ratio 13.14 Ratio (12.00-20.00); Blood Urea Nitrogen 27.6 mg/dL (9.0-27.0); Calcium 10.2 mg/dL (8.7-10.3); Carbon Dioxide 20.6 mmol/L (20.0-27.5); Chloride 105 mmol/L (96-109); Globulin 3.2 g/dL (1.6-3.3); Glucose 152 mg/dL (70-110); Iron 84 ug/dL (65-175); Magnesium 1.6 mg/dL (1.5-2.4); Non-African American GFR(CKD) 30.7 (60.0-200.0); Phosphorus 4.1 mg/dL (2.4-5.1); Potassium 4.1 mmol/L (3.5-5.5); Sodium 143 mmol/L (135-145); Total Iron Binding Capacity 430 ug/dL (228-460); Total Protein 7.7 g/dL (6.2-8.2); Uric Acid 5.6 mg/dL (3.7-8.7)
[2022-06-19 18:30] LABS: Appearance,Urine Clear (Clear); Bilirubin,Urine Negative (Negative); Blood,Urine Negative (Negative); Chol/HDL Ratio 4.22 Ratio; Color,Urine Yellow (Yellow); Ketones,Urine Negative (Negative); LDL Cholesterol,Calculated 124.5 mg/dL (0.0-131.0); Nitrite,Urine Negative (Negative); Specific Gravity,Urine 1.023 (1.001-1.030)
[2022-06-19 20:29] LABS: Microalbumin Creatinine Ratio <30 mg/g Creat (0-30)
== END | disposition home or self-care (01) ==
LOC: LABWHC1 09:05
PROVIDERS: ATTEND Nurse Practitioner Acute Care
DX: E11.65 Type 2 diabetes mellitus with hyperglycemia (principal); E11.22 Type 2 diabetes mellitus with diabetic chronic kidney disease; N18.31 Chronic kidney disease, stage 3a; N39.0 Urinary tract infection, site not specified; N25.81 Secondary hyperparathyroidism of renal origin; E55.9 Vitamin D deficiency, unspecified; M10.9 Gout, unspecified; D63.1 Anemia in chronic kidney disease
CPT/HCPCS: 36415; 80053; 80061; 81003; 82043; 82306; 82570; 82728; 83036; 83540; 83550; 83735; 83970; 84100; 84443; 84550; 85027

== ENCOUNTER 2022-10-02 10:35 | Day surgery (SDC) | payer MEDICARE, BC ==
[~2022-10-02 10:35] MED LIST changes: +DEXAMETHASONE SOD PHOSPHATE 4 MG/ML 1 ML VIAL IV ONE; +DEXAMETHASONE SOD PHOSPHATE 4 MG/ML 1 ML VIAL IV PRN; +FAMOTIDINE 20 MG/2 ML VIAL IV PRN; +ONDANSETRON 4 MG/2 ML VIAL IVP ONE; +ONDANSETRON 4 MG/2 ML VIAL IVP PRN; +fentaNYL (PF) 50 MCG/ML 2 ML AMP IV PRN
[2022-10-02 11:34] LABS: Glucose,Whole Blood 138 mg/dL (70-110)
[2022-10-02] MEDS ORDERED: LIDOCAINE 1% (10MG/ML) FOR IV START INTRADERMA ONE (11:42)
[2022-10-02] MEDS ORDERED: SUCCINYLCHOLINE CHLORIDE 200 MG/10 ML VIAL IV ONE (12:42)
[2022-10-02] MEDS ORDERED: LIDOCAINE 2% INJ 20 MG/ML (2 ML VIAL) ONE (12:42)
[2022-10-02] MEDS ORDERED: PROPOFOL 10 MG/ML 20 ML VIAL IV ONE (12:42)
[2022-10-02] MEDS ORDERED: fentaNYL (PF) 50 MCG/ML 2 ML AMP ONE (12:42)
[2022-10-02] MEDS ORDERED: MIDAZOLAM 2 MG/2 ML VIAL ONE (12:42)
[2022-10-02] MEDS ORDERED: OFLOXACIN 0.3% OPHTH DROPS 5 ML BOTTLE RIGHT EAR ONE (12:59)
--- NOTE | 2022-10-02 13:21 | P.OP ---
Date of Procedure: 10/02/22 Preoperative Diagnosis: Right chronic otitis media with effusion Right eustachian tube dysfunction Postoperative Diagnosis: Same Procedure(s) Performed: Right T-tube ventilation tube placement Right nasal endoscopy with eustachian tuboplasty Anesthesia: DEDRA Surgeon: Karsten Chambers Estimated Blood Loss (ml): 2 Pathology: none sent Condition: stable Disposition: PACU Indications for Procedure: This 71-year-old white male whose had difficulties with chronic otitis media with effusion on the right and has history of ventilation tube placement previously on the right Operative Findings: Serous otitis media on the right deviated septum to the left with no masses in the nasopharynx Description of Procedure: The patient was brought in the operative suite and placed in a supine position. The patient underwent induction of general anesthesia with oral endotracheal intubation without difficulty. The patient was prepped and draped in the usual aseptic fashion. The Zeiss microscope was positioned over the right ear and ce rumen cleaned from the ear canal. Tympanic membrane was well visualized an anteroinferior myringotomy was placed in radial fashion and the middle ear effusion was aspirated. A 1.27 mm T-tube ventilation tube was placed without difficulty followed by Floxin otic suspension. Sterile cottonball was placed. 0 endoscopic examination is then performed of the right nasal cavity with nasopharynx well visualized. The Acclarent eustachian tuboplasty instrumentation was then utilized to dilate the eustachian tube on the right at 8 mm of pressure and then deflated. This was repeated 1. The balloon was then withdrawn. No bleeding was noted. The patient was then allowed to emerge from general anesthesia having tolerated procedure well was extubated in the operating suite and transferred to postop recovery area in satisfactory condition.
[2022-10-02 13:35] VITALS: TEMP 97
[2022-10-02 13:50] VITALS: RESP 16
[2022-10-02 14:48] VITALS: BP 120/72; PULSE 81
== END 2022-10-02 14:58 | disposition home or self-care (01) ==
LOC: OR 10:35
PROVIDERS: ATTEND Otolaryngology
DX: H65.491 Other chronic nonsuppurative otitis media, right ear (principal); H69.91 Unspecified Eustachian tube disorder, right ear; I10 Essential (primary) hypertension; E78.5 Hyperlipidemia, unspecified; I25.10 Atherosclerotic heart disease of native coronary artery without angina pectoris; E11.9 Type 2 diabetes mellitus without complications
CPT/HCPCS: 31231; 69436; C1726; J2250; J0330; J1100; J0690; J2405; J3010; J2704; J2001

== ENCOUNTER → 2023-02-12 | Outpatient (CLI) | payer MEDICARE, BC ==
[2023-02-12 16:06] LABS: Chol/HDL Ratio 3.31 Ratio; LDL Cholesterol,Calculated 101.7 mg/dL (0.0-131.0)
[2023-02-12 16:21] LABS: ALT 69 U/L (10-49); AST 102 U/L (14-35); African American GFR (CKD) 49.5 (60.0-200.0); Albumin 4.2 g/dL (3.8-4.9); Albumin/Globulin Ratio 1.49 (1.60-3.17); Alkaline Phosphatase 33 U/L (41-126); BUN/Creat Ratio 15.72 Ratio (12.00-20.00); Calcium 9.8 mg/dL (8.7-10.3); Carbon Dioxide 21.1 mmol/L (20.0-27.5); Chloride 109 mmol/L (96-109); Globulin 2.8 g/dL (1.6-3.3); Glucose 136 mg/dL (70-110); Non-African American GFR(CKD) 42.7 (60.0-200.0); Potassium 5.7 mmol/L (3.5-5.5); Sodium 142 mmol/L (135-145)
[2023-02-12 20:21] LABS: Microalbumin Creatinine Ratio <30 mg/g Creat (0-30)
== END | disposition home or self-care (01) ==
LOC: LABWHC1 09:38
PROVIDERS: ATTEND Internal Medicine Endocrinology, Diabetes & Metabolism
DX: E11.65 Type 2 diabetes mellitus with hyperglycemia (principal)
CPT/HCPCS: 36415; 80053; 80061; 82043; 82570; 83036; 84443

== ENCOUNTER 2023-03-06 10:24 | Day surgery (SDC) | payer MEDICARE, BC ==
[~2023-03-06 10:24] MED LIST changes: +ALPRAZolam 0.25 MG TAB PO PRN; +ALPRAZolam 0.5 MG TAB PO PRN; +ASPIRIN 325 MG TAB PO STA; +ATORVASTATIN 80 MG TAB PO STA; -DEXAMETHASONE SOD PHOSPHATE 4 MG/ML 1 ML VIAL IV ONE; -DEXAMETHASONE SOD PHOSPHATE 4 MG/ML 1 ML VIAL IV PRN; -FAMOTIDINE 20 MG/2 ML VIAL IV PRN; +HEPARIN SODIUM,PORCINE 10,000 UNIT in SODIUM CHLORIDE 0.9% 1,000 ML IRRIGATION PRN; +HEPARIN SODIUM,PORCINE 2,500 UNIT in SODIUM CHLORIDE 0.9% 250 ML IRRIGATION PRN; -LACTATED RINGERS 1,000 ML IV SCH; +NITROGLYCERIN SL TABS 0.4 MG TAB SUBLINGUAL PRN; -ONDANSETRON 4 MG/2 ML VIAL IVP ONE; -ONDANSETRON 4 MG/2 ML VIAL IVP PRN; -fentaNYL (PF) 50 MCG/ML 2 ML AMP IV PRN
[2023-03-06] MEDS ORDERED: SODIUM CHLORIDE 0.9% 1,000 ML IV ONE (10:45)
[2023-03-06 11:17] LABS: Basophils # (A) 0.1 k/uL (0-0.2); Basophils % (A) 1 %; Eosinophils # (A) 0.2 k/uL (0-0.7); Eosinophils % (A) 3 %; HCT 35.1 % (39.0-53.0); HGB 11.9 gm/dL (13.0-17.5); Lymphocytes # (A) 1.5 k/uL (1.0-4.8); Lymphocytes % (A) 27 %; MCH 33.4 pg (25.0-35.0); MCHC 33.9 g/dL (31.0-37.0); MCV 98.5 fL (80.0-100.0); Mean Platelet Volume 7.8; Monocytes # (A) 0.4 k/uL (0-1.0); Monocytes % (A) 7 %; Neutrophils # (A) 3.3 k/uL (1.3-7.7); Neutrophils % (A) 60 %; Platelet Count 193 k/uL (150-450); RBC 3.56 m/uL (4.30-5.90); RDW 13.5 % (11.5-15.5); WBC 5.6 k/uL (3.8-10.6)
[2023-03-06] MEDS ORDERED: LIDOCAINE 1% INJ 10MG/ML (20 ML MDV) ONE (12:44)
[2023-03-06] MEDS ORDERED: LIDOCAINE 1% INJ 10MG/ML (20 ML MDV) SQ ONE (12:52)
[2023-03-06] MEDS ORDERED: MIDAZOLAM 2 MG/2 ML VIAL IV ONE (12:53)
[2023-03-06] MEDS ORDERED: IOPAMIDOL-370 100ML BTL INJ ONE (13:16)
[2023-03-06] MEDS ORDERED: RX INFO: IV CONTRAST WAS GIVEN 1 EACH MISC MISCELLANE PRN (13:20)
--- NOTE | 2023-03-06 13:24 | P.PCN ---
Date of Procedure: 03/06/23 Operative Findings: CARDIAC CATHETERIZATION PERFORMING PHYSICIAN: Luis Felipe Pritchett MD, RPVI PROCEDURE PERFORMED: 1. Selective right and left coronary angiogram 2. ZAMBRANO into LAD angiogram, SVG to diagonal angiogram, SVG to ramus angiogram, and SVG to RCA angiogram 3. Right common femoral artery angiogram and ultrasound guided access of the right common femoral artery INDICATION: Chest discomfort and shortness of breath in this 72-year-old gentleman with CAD and status post open heart surgery remains symptomatic in spite of maximize medical treatment COMPLICATION: None APPROACH: Right common femoral artery LEVEL OF SEDATION: Moderate with sedation in length of 24 minutes PROCEDURE DESCRIPTION: After obtaining an informed consent, the patient was brought to cardiac cardiac cath tech. Local anesthesia was performed using lidocaine subcutaneously. The right common femoral artery was cannulated using Seldinger technique, the guidewire passed easily, following that we advanced a 6 Martiniquais sheath dilator assembly, the wire and dilator were removed and sheath was flushed. Selective right and left coronary angiogram using a 6-Martiniquais JR4 and JL catheters. After that ZAMBRANO into LAD angiogram and SVG to diagonal angiogram and SVG to ramus angiogram was performed using the JR4 catheter. The SVG to PDA was performed using a Herve right catheter. The procedure was completed there was no complication. SELECTIVE CORONARY ANGIOGRAM: The right coronary artery: Large-caliber vessel and a dominant vessel and appears to be occluded by the ostium Left main: Has intermediate lesion distally. The left circumflex: Has intermediate lesion only. Gives rises into high OM/ramus which has severe disease in the proximal portion. The left anterior descending artery: Appeared to have severe disease in the proximal to midportion Coronary bypasses angiogram: The ZAMBRANO to LAD is patent The SVG to diagonal is patent The SVG to ramus is patent The SVG to RCA is patent CONCLUSION: 1. Severe triple-vessel CAD 2. Patent ZAMBRANO to LAD and patent SVG to diagonal and patent SVG to ramus and patent SVG to RCA POSTPROCEDURE MANAGEMENT: Medical treatment
[2023-03-06] MEDS ORDERED: SODIUM CHLORIDE 0.9% 1,000 ML IV SCH (13:30)
[2023-03-06] MEDS ORDERED: ACETAMINOPHEN TAB 500 MG TAB PO ONE (15:14)
[2023-03-06] MEDS: SODIUM CHLORIDE 0.9% 1,000 ML in EMPTY BAG 1 BAG IV SCH ×2 (15:36→18:42)
[2023-03-06 16:45] VITALS: RESP 18; TEMP 98
[2023-03-06 16:59] VITALS: PULSE 73
[2023-03-06 17:42] VITALS: BP 102/63
== END 2023-03-06 21:09 | disposition home or self-care (01) ==
LOC: CATHCVL 10:24 → 6NMEDSUR 13:17 → CATHCVL 21:09
PROVIDERS: ATTEND Internal Medicine Interventional Cardiology
DX: I25.10 Atherosclerotic heart disease of native coronary artery without angina pectoris (principal)
CPT/HCPCS: 93455; 76937; 85025; C1769 ×2; C1894; J2250; J2001; Q9967

== ENCOUNTER → 2023-03-17 | Outpatient (CLI) | payer MEDICARE, BC ==
[2023-03-17 15:42] LABS: ALT 23 U/L (10-49); AST 30 U/L (14-35); Albumin 4.5 d/dL (3.8-4.9); Albumin/Globulin Ratio 1.88 Ratio (1.60-3.17); Alkaline Phosphatase 44 U/L (41-126); BUN/Creat Ratio 13.65 Ratio (12.00-20.00); Blood Urea Nitrogen 23.2 mg/dL (9.0-27.0); Calcium 10.3 mg/dL (8.7-10.3); Chloride 108 mmol/L (96-109); Globulin 2.4 d/dL (1.6-3.3); Glucose 179 mg/dL (70-110); Potassium 5.1 mmol/L (3.5-5.5); Sodium 145 mmol/L (135-145); Total Bilirubin 0.6 mg/dL (0.3-1.2); Total Protein 6.9 d/dL (6.2-8.2)
== END | disposition home or self-care (01) ==
LOC: LABWHC1 09:18
PROVIDERS: ATTEND Internal Medicine Endocrinology, Diabetes & Metabolism
DX: E11.65 Type 2 diabetes mellitus with hyperglycemia (principal)
CPT/HCPCS: 36415; 80053

== ENCOUNTER → 2023-06-17 | Outpatient (CLI) | payer MEDICARE, BC ==
[2023-06-17 17:05] LABS: Chol/HDL Ratio 3.63 Ratio; LDL Cholesterol,Calculated 76.1 mg/dL (0.0-131.0)
[2023-06-17 17:06] LABS: ALT 42 U/L (10-49); AST 54 U/L (14-35); Albumin 4.6 d/dL (3.8-4.9); Alkaline Phosphatase 48 U/L (41-126); BUN/Creat Ratio 13.53 Ratio (12.00-20.00); Calcium 10.5 mg/dL (8.7-10.3); Carbon Dioxide 22.3 mmol/L (21.6-31.8); Chloride 108 mmol/L (96-109); Globulin 2.3 d/dL (1.6-3.3); Glucose 152 mg/dL (70-110); Potassium 4.9 mmol/L (3.5-5.5); Sodium 145 mmol/L (135-145); Total Bilirubin 0.5 mg/dL (0.3-1.2); Total Protein 6.9 d/dL (6.2-8.2)
[2023-06-17 23:49] LABS: Microalbumin Creatinine Ratio <8 mg/g Cr (0-30)
== END | disposition home or self-care (01) ==
LOC: LABWHC1 10:23
PROVIDERS: ATTEND Internal Medicine Endocrinology, Diabetes & Metabolism
DX: E11.65 Type 2 diabetes mellitus with hyperglycemia (principal)
CPT/HCPCS: 36415; 80053; 80061; 82043; 82570; 83036; 84443

== ENCOUNTER → 2023-07-15 | Outpatient (CLI) | payer BC, MEDICARE | LOC: CPPFTMAIN 10:25 | PROVIDERS: ATTEND Family Medicine | DX: R06.09 Other forms of dyspnea (principal) | CPT/HCPCS: 94060; 94726; 94729 ==

== ENCOUNTER → 2023-10-09 | Outpatient (CLI) | payer MEDICARE ==
[2023-10-09 16:22] LABS: BUN/Creat Ratio 19.35 Ratio (12.00-20.00); Blood Urea Nitrogen 32.9 mg/dL (9.0-27.0); Chol/HDL Ratio 3.25 Ratio; Glucose 137 mg/dL (70-110); LDL Cholesterol,Calculated 88.8 mg/dL (0.0-131.0)
[2023-10-09 16:23] LABS: ALT 36 U/L (10-49); AST 44 U/L (14-35); Albumin 4.2 g/dL (3.8-4.9); Albumin/Globulin Ratio 1.83 Ratio (1.60-3.17); Alkaline Phosphatase 42 U/L (41-126); Calcium 10.1 mg/dL (8.7-10.3); Carbon Dioxide 21.2 mmol/L (21.6-31.8); Chloride 107 mmol/L (96-109); Globulin 2.3 g/dL (1.6-3.3); Potassium 4.2 mmol/L (3.5-5.5); Sodium 142 mmol/L (135-145); Total Bilirubin 0.4 mg/dL (0.3-1.2); Total Protein 6.5 g/dL (6.2-8.2)
[2023-10-09 21:32] LABS: Microalbumin Creatinine Ratio <10 mg/g Cr (0-30)
== END | disposition home or self-care (01) ==
LOC: LABWHC1 12:04
PROVIDERS: ATTEND Internal Medicine Endocrinology, Diabetes & Metabolism
DX: E11.65 Type 2 diabetes mellitus with hyperglycemia (principal)
CPT/HCPCS: 36415; 80053; 80061; 82043; 82570; 83036; 84443

== ENCOUNTER → 2024-07-28 | Outpatient (CLI) | payer MEDICARE ==
[2024-07-28 17:05] LABS: ALT 35 U/L (10-49); AST 40 U/L (14-35); Albumin 4.1 g/dL (3.8-4.9); Albumin/Globulin Ratio 1.86 Ratio (1.60-3.17); Alkaline Phosphatase 46 U/L (41-126); BUN/Creat Ratio 14.31 Ratio (12.00-20.00); Blood Urea Nitrogen 22.9 mg/dL (9.0-27.0); Calcium 9.7 mg/dL (8.7-10.3); Carbon Dioxide 20.7 mmol/L (21.6-31.8); Chloride 107 mmol/L (96-109); Globulin 2.2 g/dL (1.6-3.3); Glucose 190 mg/dL (70-110); LDL Cholesterol,Calculated 70.4 mg/dL (0.0-131.0); Potassium 4.4 mmol/L (3.5-5.5); Sodium 141 mmol/L (135-145); Total Bilirubin 0.5 mg/dL (0.3-1.2); Total Protein 6.3 g/dL (6.2-8.2)
[2024-07-28 21:55] LABS: Microalbumin Creatinine Ratio <9 mg/g Cr (0-30)
== END | disposition home or self-care (01) ==
LOC: LABWHC1 11:36
PROVIDERS: ATTEND Internal Medicine Endocrinology, Diabetes & Metabolism
DX: E11.65 Type 2 diabetes mellitus with hyperglycemia (principal)
CPT/HCPCS: 36415; 80053; 80061; 82043; 82570; 83036; 84443

== ENCOUNTER → 2024-11-26 | Outpatient (CLI) | payer MEDICARE ==
[2024-11-26 15:35] LABS: ALT 39 U/L (10-49); AST 55 U/L (14-35); Albumin/Globulin Ratio 1.67 Ratio (1.60-3.17); Alkaline Phosphatase 45 U/L (41-126); BUN/Creat Ratio 12.17 Ratio (12.00-20.00); Blood Urea Nitrogen 21.9 mg/dL (9.0-27.0); Calcium 9.7 mg/dL (8.7-10.3); Chloride 109 mmol/L (96-109); Chol/HDL Ratio 3.94 Ratio; Globulin 2.4 g/dL (1.6-3.3); Glucose 216 mg/dL (70-110); LDL Cholesterol,Calculated 79.9 mg/dL (0.0-131.0); Potassium 4.5 mmol/L (3.5-5.5); Sodium 143 mmol/L (135-145); Total Bilirubin 0.3 mg/dL (0.3-1.2); Total Protein 6.4 g/dL (6.2-8.2)
[2024-11-26 20:30] LABS: Microalbumin Creatinine Ratio <12 mg/g Cr (0-30)
== END | disposition home or self-care (01) ==
LOC: LABWHC1 09:05
PROVIDERS: ATTEND Internal Medicine Endocrinology, Diabetes & Metabolism
DX: E11.65 Type 2 diabetes mellitus with hyperglycemia (principal)
CPT/HCPCS: 36415; 80053; 80061; 82043; 82570; 83036; 84443

== ENCOUNTER 2025-03-09 05:38 | Day surgery (SDC) | payer MEDICARE ==
[2025-03-07 11:20] VITALS: BMI 27.3
[2025-03-09 06:19] LABS: Glucose,Whole Blood 152 mg/dL (70-110)
[2025-03-09] MEDS ORDERED: NITROGLYCERIN SL TABS 0.4 MG TAB SUBLINGUAL PRN (06:41)
[2025-03-09] MEDS ORDERED: ALPRAZolam 0.5 MG TAB PO PRN (06:41)
[2025-03-09] MEDS ORDERED: ALPRAZolam 0.25 MG TAB PO PRN (06:41)
[2025-03-09] MEDS ORDERED: ATORVASTATIN 80 MG TAB PO STA (06:41)
[2025-03-09] MEDS: IV FLUID CONTINUATION 1,000 ML IV ONE (06:45)
[2025-03-09] MEDS ORDERED: HEPARIN SODIUM,PORCINE (1 ML) 2,500 UNIT in SODIUM CHLORIDE 0.9% 250 ML IRRIGATION PRN (07:00)
[2025-03-09] MEDS ORDERED: HEPARIN SODIUM,PORCINE 10,000 UNIT in SODIUM CHLORIDE 0.9% 1,000 ML IRRIGATION PRN (07:00)
[2025-03-09 07:07] VITALS: RESP 16; TEMP 97.9
[2025-03-09] MEDS: MIDAZOLAM 2 MG/2 ML VIAL IVP ONE (07:55)
[2025-03-09] MEDS: LIDOCAINE 1% INJ 10MG/ML (20 ML MDV) SQ ONE (07:57)
[2025-03-09] MEDS: fentaNYL (PF) 50 MCG/1 ML VIAL IVP ONE (08:03)
[2025-03-09] MEDS ORDERED: RX INFO: IV CONTRAST WAS GIVEN 1 EACH MISC MISCELLANE PRN (08:24)
[2025-03-09] MEDS ORDERED: SODIUM CHLORIDE 0.9% 1,000 ML IV SCH (08:30)
[2025-03-09] MEDS: IOPAMIDOL-300 100ML BTL INJ ONE (08:31)
--- NOTE | 2025-03-09 08:32 | P.PCN ---
Date of Procedure: 03/09/25 Operative Findings: CARDIAC CATHETERIZATION PERFORMING PHYSICIAN: Luis Felipe Pritchett MD, RPVI PROCEDURE PERFORMED: 1. Selective right and left coronary angiogram along with ZAMBRANO to LAD angiogram and SVG to diagonal and SVG to OM and SVG to RCA angiogram 2. Left heart catheterization and right heart catheterization 3. Ultrasound-guided access of the right common femoral artery and selective right common femoral artery angiogram INDICATION: Symptomatic 74-year-old gentleman with a CAD and prior open heart surgery and abnormal myocardial perfusion imaging stress test COMPLICATION: None APPROACH: Right common femoral artery LEVEL OF SEDATION: Moderate with sedation in length of 32 minutes PROCEDURE DESCRIPTION: After obtaining an informed consent, the patient was brought to cardiac medical lab scientist. Local anesthesia was performed using lidocaine subcutaneously. The right common femoral artery was cannulated using Seldinger technique, the guidewire passed easily, following that we advanced a 6 Icelandic sheath dilator assembly, the wire and dilator were removed and sheath was flushed. Selective right and left coronary angiogram using a 6-Icelandic JR4 and JL catheters. The ZAMBRANO to LAD angiogram and SVG to diagonal and OM angiogram performed using the JR4 catheter. The SVG to RCA angiogram performed using Akbar Mcclain catheter. Right heart catheterization was performed using the Odd catheter. The procedure was completed there was no complication. SELECTIVE CORONARY ANGIOGRAM: The right coronary artery: Is occluded chronically Left main: Has mild disease only The left circumflex: Subtotally occluded The left anterior descending artery: Subtotally occluded The ZAMBRANO to LAD angiogram is patent The SVG to ramus intermedius is patent The SVG to diagonal is patent The SVG to RCA is patent HEMODYNAMICS: Pulmonary capillary wedge pressure was 4 mmHg PA pressures were as follows systolic of 22 and diastolic of 3 and mean of 12 mmHg RV pressures were as follows systolic of 26 and end-diastolic of 4 mmHg Right atrial pressure was 4 mmHg The aortic pressure was systolic of 99 and diastolic of 45 and mean of 67 mmHg The cardiac output was 6.46 L/min with a cardiac index of 3.32 L/min/m CONCLUSION: 1. Severe triple-vessel CAD 2. Patent ZAMBRANO to LAD and patent SVG to diagonal and patent SVG to OM and patent SVG to RCA 3. Normal biventricular filling pressure 4. Normal cardiac output and normal cardiac index POSTPROCEDURE MANAGEMENT: Medical treatment
[2025-03-09] MEDS: ASPIRIN 325 MG TAB PO STA (09:25)
[2025-03-09] MEDS: SODIUM CHLORIDE 0.9% 1,000 ML in EMPTY BAG 1 BAG IV ONE (09:25)
[2025-03-09] MEDS: HYDROcodone/APAP 10-325MG 1 EACH TAB PO ONE (09:26)
[2025-03-09 17:32] VITALS: BP 111/58; PULSE 69
== END 2025-03-09 16:10 | disposition home or self-care (01) ==
LOC: CATHCVL 05:38
PROVIDERS: ATTEND Internal Medicine Interventional Cardiology
DX: I25.10 Atherosclerotic heart disease of native coronary artery without angina pectoris (principal); E78.5 Hyperlipidemia, unspecified; I12.9 Hypertensive chronic kidney disease with stage 1 through stage 4 chronic kidney disease, or unspecified chronic kidney disease; E11.22 Type 2 diabetes mellitus with diabetic chronic kidney disease; N18.9 Chronic kidney disease, unspecified; Z79.82 Long term (current) use of aspirin; Z79.899 Other long term (current) drug therapy; Z79.4 Long term (current) use of insulin
CPT/HCPCS: 93461; 99152; 99153; C1769; C1894; C1751; J2250; J2003; Q9967; J3010